=== PATIENT | female | born 1935 | race Caucasian/White ===

== ENCOUNTER 2016-04-23 14:13 | Inpatient (IN) | payer OTHER ==
[~2016-04-23] VITALS: Ht 157.5 cm; Wt 70.8 kg
[~2016-04-23 14:13] MED LIST: ALEN70TA4 PO; AMIO200T4 PO; CLOP1TAB54 PO; CMD25 PO; ESCI10TA17 PO; FERRTAB18 PO; FLUO0.0543 TOP; HYDR-5688 PO; KETO2CRE14 TOP; METO1TAB31 PO; NITR0.2D TD; NITR0.4S UT; NYSS/ PO; ONDA4TAB46 PO; PANT40TA PO; POTA10CA28 PO; PRED-301 PO; ROSU40TA PO; TRAM-10 PO
[2016-04-23] MEDS ORDERED: WARF5TAB7 PO (14:41)
[2016-04-23] MEDS ORDERED: CMD5 PO (14:41)
[2016-04-23] MEDS ORDERED: MoRPHine SULFATE 4 MG/ML 1 ML CARP\\VIAL IV STA (15:02)
[2016-04-23] MEDS ORDERED: SODIUM CHLORIDE 0.9% 500ML 500 ML IV STA (15:02)
[2016-04-23] MEDS ORDERED: ONDANSETRON INJ 2 MG/ML 2 ML VIAL IV STA (15:02)
[2016-04-23] MEDS ORDERED: OPTIRAY 320 IV PRN (15:15)
[2016-04-23 15:24] LABS: BASO % 0.2 %; BASO ABS # 0.02 K/uL (0-0.2); COMPLETE YES; EOS % 0.3 %; HEMATOCRIT 31.7 % (37-47); IG% 0.1 %; LYMPH % 9.3 %; LYMPH ABS # 1.08 K/uL (1.2-3.4); MEAN CELL VOLUME 87.6 fL (80-100); MEAN CORPUSCULAR HEMOGLOBIN 27.3 pg (25-34); MEAN CORPUSCULAR HGB CONC 31.2 g/dl (32-36); MEAN PLATELET VOLUME 10.4 fL (7.4-10.4); MONO % 11.5 %; NEUT % 78.6 %; PLATELET COUNT 250 K/uL (130-400); RED BLOOD COUNT 3.62 M/uL (4.2-5.4); WHITE BLOOD COUNT 11.59 K/uL (4.8-10.8)
[2016-04-23 15:44] LABS: PROTHROMBIN TIME (PATIENT) > 100.0 SECONDS (9.0-12.0)
[2016-04-23 15:47] LABS: BUN/CREATININE RATIO 21.5 (10-20); CALCIUM 8.4 mg/dl (8.5-10.1); CREATININE 1.1 mg/dl (0.60-1.20); POTASSIUM 4.2 mmol/L (3.5-5.1)
[2016-04-23 16:05] LABS: INR > 8.0 (0.9-1.1)
--- NOTE | 2016-04-23 16:29 | DIAGNOSTIC IMAGING REPORT ---
CT ABD/PELVIS IV CONTRAST ONLY CLINICAL HISTORY: Left lower quadrant abdominal pain COMPARISON STUDY: 10/30/2015 TECHNIQUE: Following the IV administration of 110 mL of Optiray-320, CT scan of the abdomen and pelvis was performed from the lung bases to the proximal femurs. Images are reviewed in the axial, sagittal, and coronal planes. IV contrast was administered without complication. CT DOSE: 422.79 mGy.cm FINDINGS: Lower chest: The heart is enlarged. There are bibasal atelectatic changes. Liver: The contrast-enhanced liver is normal in size, contour, and attenuation. There is no intrahepatic biliary ductal dilatation. The hepatic veins and portal veins are patent. Gallbladder: The gallbladder is minimally distended. There are multiple calculi present. Spleen: Normal in size and attenuation. Pancreas: Unremarkable. Adrenal glands: Unremarkable. Kidneys: There is subtle diminished enhancement of the left kidney. There is a 6 mm right renal cyst. As a complex 13 mm lower pole left renal cystic lesion containing coarse calcifications. This remain similar to the prior noncontrast study. There is subtle increased density of the proximal left ureter, but a discrete calculus is not visualized. There is mild uroepithelial thickening of the left renal pelvis. Diagnostic considerations include ureteral neoplasm, ureteral hemorrhage, or radiolucent or recently passed calculus. Associated renal infection cannot be excluded. Bowel: There are no transition zones indicate bowel obstruction. There is no evidence of acute diverticulitis. There are no findings to indicate acute appendicitis. Peritoneum: There is no intraperitoneal free air or abdominal ascites. Vasculature: The abdominal aorta is normal in course and caliber. Adenopathy: None. Pelvic viscera: The bladder, and pelvic viscera are unremarkable. Skeletal structures: No destructive osseous lesions are seen. IMPRESSION: 1. No evidence of bowel obstruction. No evidence of free air 2. Normal appendix. No evidence of acute diverticulitis. 3. Cholelithiasis 4. Complex 13 mm lower pole left renal cystic mass containing coarse calcifications 5. Mild left-sided hydronephrosis, mild proximal uroepithelial thickening, subtle diminished left-sided nephrogram, and subtle increased density of the left proximal ureter. No discrete calculus is visualized. Diagnostic considerations include ureteral hemorrhage, ureteral neoplasm, radiolucent or recently passed calculus, as well as renal infection. Urological consultation is recommended. Electronically signed by: Praveen Avilez M.D. 04/23/2016 4:28 PM Dictated Date/Time: 04/23/2016 4:19 PM
[2016-04-23] MEDS ORDERED: PHYTONADIONE INJ 5 MG in SODIUM CHLORIDE 0.9% 50ML 50 ML IV ONE ×2 (16:45→17:30)
[2016-04-23] MEDS ORDERED: CEFTRIAXONE SOD INJ 1 GM ADDVIAL IV STA (16:59)
[2016-04-23] MEDS ORDERED: ACT300 PO (17:30)
[2016-04-23] MEDS ORDERED: PANT1TAB48 PO (17:30)
[2016-04-23] MEDS ORDERED: ACETAMINOPHEN 325 MG TAB PO PRN (17:30)
[2016-04-23] MEDS ORDERED: ONDANSETRON INJ 2 MG/ML 2 ML VIAL IV PRN (17:30)
[2016-04-23] MEDS ORDERED: FURO40TA3 PO (17:42)
[2016-04-23] MEDS ORDERED: SODIUM CHLORIDE 0.9% 1000ML 1,000 ML IV SCH (17:45)
--- NOTE | 2016-04-23 17:45 | EMERGENCY ROOM VISIT NOTE ---
History Report prepared by Renateibpete: Adriana Schmid Under the Supervision of: Rosibel DiegoO. First contact with patient: 14:52 Chief Complaint: ABDOMINAL PAIN Stated Complaint: ABDOMINAL PAIN Nursing Triage Summary: Pt arrives ALS for evalution of increased abd pain, nausea today. Reports pain and nausea the last few days with pain behind bilat knees, left back pain, right jaw pain and loose bowels. History of Present Illness The patient is a 81 year old female who presents to the Emergency Room via ALS with complaints of persistent left sided abdominal pain starting about 2-3 days ago. She also complains of severe nausea but denies vomiting. She has been having intermittent diarrhea for the past few days. She also complains of bilateral lower extremity pain. She has chronic low back pain which is unchanged. She denies any hematuria. The patient denies any recent trauma or falls. fevers, chest pain, shortness of breath, urinary symptoms, or any other complaints. The patient is on Coumadin. She denies any history of similar pain. She denies any history of asthma, COPD, appendectomy, or cholecystectomy. Source of History: patient Onset: about 2-3 days ago Position: abdomen (left sided) Timing: other (persistent) Associated Symptoms: + nausea, No SOB, No chest pain, No fevers, No urinary symptoms, No vomiting Review of Systems See HPI for pertinent positives & negatives. A total of 10 systems reviewed and were otherwise negative. Past Medical & Surgical Medical Problems: (1) Anticoagulation goal of INR 2 to 3 (2) Atrial thrombus (3) CAD (coronary artery disease) (4) Cardiomyopathy (5) CHF (congestive heart failure) (6) CKD (chronic kidney disease), stage III (7) Elevated troponin (8) HLD (hyperlipidemia) (9) Hydronephrosis (10) ICD (implantable cardioverter-defibrillator) battery depletion (11) On prednisone therapy (12) PMR (polymyalgia rheumatica) (13) Pulmonary embolism, bilateral (14) PVD (peripheral vascular disease) (15) Ventricular tachycardia Surgical Problems: (1) History of back surgery Family History Heart disease Social History Smoking Status: Former Smoker Alcohol Use: none Drug Use: none Marital Status: single Housing Status: lives alone Occupation Status: retired Current/Historical Medications Scheduled Amiodarone Hcl (Cordarone), 200 MG PO DAILY Clopidogrel Bisulfate (Plavix), 75 MG PO DAILY Furosemide (Lasix), 10 MG PO UD Metoprolol Succinate (Toprol Xl), 25 MG PO QAM Nitroglycerin (Nitro-Dur 0.2 Mg/Hr), 1 PATCH TD ONAMOFFPM Pantoprazole (Protonix), 1 TAB PO BID Potassium Chloride (Micro-K Ext Rel), 20 MEQ PO DAILY Prednisone (Prednisone), 7.5 MG PO DAILY Ursodiol (Ursodiol), 300 MG PO BID Warfarin Sod (Coumadin), 5 MG PO 4XWK Warfarin Sod (Jantoven), 2.5 MG PO 3XWK Scheduled PRN Nitroglycerin (Nitrostat), 0.4 MG UT UD PRN for Chest Pain Ondansetron Hcl (Zofran), 8 MG PO Q8 PRN for Nausea Tramadol (Ultram), 50 MG PO Q6H PRN for Pain Allergies Coded Allergies: Azithromycin (Verified Allergy, Severe, ANAPHYLAXIS, 10/30/15) NSAIDs (Verified Allergy, Severe, HIVES, 10/30/15) Aspirin (Verified Allergy, Unknown, hives, 10/30/15) Erythromycin (Verified Allergy, Unknown, ., 10/30/15) Gabapentin (Verified Allergy, Unknown, myoclonus, 10/30/15) Physical Exam Vital Signs Date Time Temp Pulse Resp B/P Pulse Ox O2 Delivery O2 Flow Rate FiO2 04/23/16 17:13 37.1 63 16 152/72 100 4.0 04/23/16 16:48 100 Nasal Cannula 4.0 04/23/16 16:13 70 16 129/64 100 6.0 04/23/16 15:39 59 16 131/66 99 Nasal Cannula 04/23/16 15:31 Nasal Cannula 6.0 04/23/16 15:28 Nasal Cannula 4.0 04/23/16 14:31 63 04/23/16 14:28 36.9 64 20 135/63 97 Room Air Physical Exam GENERAL: Sitting up in bed, disheveled, no acute distress, nontoxic. EYE EXAM: normal conjunctiva OROPHARYNX: no exudate, no erythema, lips, buccal mucosa, and tongue normal and mucous membranes are moist NECK: supple, no nuchal rigidity, no adenopathy, non-tender LUNGS: Clear to auscultation. Normal chest wall mechanics HEART: Distant heart sounds. ABDOMEN: abdomen soft, minimal diffuse lower abdominal tenderness, normo-active bowel sounds, no masses, no rebound or guarding. BACK: Reproducible bilateral paraspinal tenderness, skin is intact, no midline tenderness, old incision in lower lumbar. RECTAL: Heme negative. SKIN: no rashes and no bruising UPPER EXTREMITIES: upper extremities are grossly normal. LOWER EXTREMITIES: No pitting edema. NEURO EXAM: Normal sensorium, cranial nerves II-XII grossly intact, normal speech, normal flexion, extension, hip, ankles, EHL 5/5 bilaterally. Medical Decision & Procedures ER Provider Diagnostic Interpretation: CT:Per my review, radiologist interpretation. CT ABD/PELVIS IV CONTRAST ONLY CLINICAL HISTORY: Left lower quadrant abdominal pain COMPARISON STUDY: 10/30/2015 TECHNIQUE: Following the IV administration of 110 mL of Optiray-320, CT scan of the abdomen and pelvis was performed from the lung bases to the proximal femurs. Images are reviewed in the axial, sagittal, and coronal planes. IV contrast was administered without complication. CT DOSE: 422.79 mGy.cm FINDINGS: Lower chest: The heart is enlarged. There are bibasal atelectatic changes. Liver: The contrast-enhanced liver is normal in size, contour, and attenuation. There is no intrahepatic biliary ductal dilatation. The hepatic veins and portal veins are patent. Gallbladder: The gallbladder is minimally distended. There are multiple calculi present. Spleen: Normal in size and attenuation. Pancreas: Unremarkable. Adrenal glands: Unremarkable. Kidneys: There is subtle diminished enhancement of the left kidney. There is a 6 mm right renal cyst. As a complex 13 mm lower pole left renal cystic lesion containing coarse calcifications. This remain similar to the prior noncontrast study. There is subtle increased density of the proximal left ureter, but a discrete calculus is not visualized. There is mild uroepithelial thickening of the left renal pelvis. Diagnostic considerations include ureteral neoplasm, ureteral hemorrhage, or radiolucent or recently passed calculus. Associated renal infection cannot be excluded. Bowel: There are no transition zones indicate bowel obstruction. There is no evidence of acute diverticulitis. There are no findings to indicate acute appendicitis. Peritoneum: There is no intraperitoneal free air or abdominal ascites. Vasculature: The abdominal aorta is normal in course and caliber. Adenopathy: None. Pelvic viscera: The bladder, and pelvic viscera are unremarkable. Skeletal structures: No destructive osseous lesions are seen. IMPRESSION: 1. No evidence of bowel obstruction. No evidence of free air 2. Normal appendix. No evidence of acute diverticulitis. 3. Cholelithiasis 4. Complex 13 mm lower pole left renal cystic mass containing coarse calcifications 5. Mild left-sided hydronephrosis, mild proximal uroepithelial thickening, subtle diminished left-sided nephrogram, and subtle increased density of the left proximal ureter. No discrete calculus is visualized. Diagnostic considerations include ureteral hemorrhage, ureteral neoplasm, radiolucent or recently passed calculus, as well as renal infection. Urological consultation is recommended. Electronically signed by: Praveen Avilez M.D. 04/23/2016 4:28 PM Dictated Date/Time: 04/23/2016 4:19 PM Laboratory Results 04/23/16 15:15 Red Blood Count 3.62, Mean Corpuscular Volume 87.6, Mean Corpuscular Hemoglobin 27.3, Mean Corpuscular Hemoglobin Concent 31.2, Mean Platelet Volume 10.4, Neutrophils (%) (Auto) 78.6, Lymphocytes (%) (Auto) 9.3, Monocytes (%) (Auto) 11.5, Eosinophils (%) (Auto) 0.3, Basophils (%) (Auto) 0.2, Neutrophils # (Auto ) 9.11, Lymphocytes # (Auto) 1.08, Monocytes # (Auto) 1.33, Eosinophils # (Auto ) 0.04, Basophils # (Auto) 0.02 04/23/16 15:15 Test 04/23/16 15:15 White Blood Count 11.59 K/uL (4.8-10.8) Red Blood Count 3.62 M/uL (4.2-5.4) Hemoglobin 9.9 g/dL (12.0-16.0) Hematocrit 31.7 % (37-47) Mean Corpuscular Volume 87.6 fL (80-100) Mean Corpuscular Hemoglobin 27.3 pg (25-34) Mean Corpuscular Hemoglobin Concent 31.2 g/dl (32-36) Platelet Count 250 K/uL (130-400) Mean Platelet Volume 10.4 fL (7.4-10.4) Neutrophils (%) (Auto) 78.6 % Lymphocytes (%) (Auto) 9.3 % Monocytes (%) (Auto) 11.5 % Eosinophils (%) (Auto) 0.3 % Basophils (%) (Auto) 0.2 % Neutrophils # (Auto) 9.11 K/uL (1.4-6.5) Lymphocytes # (Auto) 1.08 K/uL (1.2-3.4) Monocytes # (Auto) 1.33 K/uL (0.11-0.59) Eosinophils # (Auto) 0.04 K/uL (0-0.5) Basophils # (Auto) 0.02 K/uL (0-0.2) RDW Standard Deviation 52.3 fL (36.4-46.3) RDW Coefficient of Variation 16.3 % (11.5-14.5) Immature Granulocyte % (Auto) 0.1 % Immature Granulocyte # (Auto) 0.01 K/uL (0.00-0.02) Anion Gap 8.0 mmol/L (3-11) Est Creatinine Clear Calc Drug Dose 38.3 ml/min Estimated GFR () 54.9 Estimated GFR (Non- 47.4 BUN/Creatinine Ratio 21.5 (10-20) Calcium Level 8.4 mg/dl (8.5-10.1) Total Bilirubin 0.6 mg/dl (0.2-1) Direct Bilirubin 0.1 mg/dl (0-0.2) Aspartate Amino Transf (AST/SGOT) 16 U/L (15-37) Alanine Aminotransferase (ALT/SGPT) 17 U/L (12-78) Alkaline Phosphatase 57 U/L (45-117) Total Protein 6.6 gm/dl (6.4-8.2) Albumin 3.3 gm/dl (3.4-5.0) Lipase 125 U/L (73-393) Laboratory results per my review. Medications Administered Medications (Trade) Dose Ordered Sig/Olman Route Start Time Stop Time Status Last Admin Dose Admin Sodium Chloride (Nss 500ml) 500 ml @ 999 mls/hr Q31M STAT IV 04/23/16 15:02 04/23/16 15:32 DC 04/23/16 15:09 999 MLS/HR Ondansetron HCl (Zofran Inj) 4 mg NOW STAT IV 04/23/16 15:02 04/23/16 15:03 DC 04/23/16 15:11 4 MG Morphine Sulfate 4 mg 4 mg NOW STAT IV 04/23/16 15:02 04/23/16 15:03 DC 04/23/16 15:12 4 MG Phytonadione/ Sodium Chloride (Aqua-Mephyton Inj/Nss 50ml) 50.5 ml @ 101 mls/hr ONE ONCE IV 04/23/16 16:45 04/23/16 17:14 DC 04/23/16 17:15 101 MLS/HR Ceftriaxone Sodium (Rocephin Inj) 1 gm NOW STAT IV 04/23/16 16:59 04/23/16 17:00 DC 04/23/16 17:45 1 GM ECG Indication: abdominal pain Rate (beats per minute): 63 Rhythm: sinus rhythm Findings: Q waves (Septal), left axis deviation, other (ST segment elevation in v1 and v2) Comparison ECG Date: October 30, 2015 and August 20, 2015 Change: no significant change ED Course ED COURSE: Vital signs were reviewed and showed normal. The patients medical record was reviewed The above diagnostic studies were performed and reviewed. ED treatments and interventions as stated above. 1452: The patient was evaluated in room A12B. A complete history and physical examination was performed. 1502: Morphine Sulfate 4 mg IV, Zofran Inj 4 mg IV, Sodium Chloride 500 ml @ 999 mls/hr IV 1539: The patient is awake and talking. 1645: Phytonadione mg/Sodium Chloride 50.5 ml @ 101 mls/hr Protocol IV 1659: Rocephin Inj 1 mg IV 1725: The patient has blood in her urine. She denies any previous history of hematuria. 1730: Phytonadione mg/Sodium Chloride 50.5 ml @ 101 mls/hr Protocol IV 1654: Upon reevaluation, the patient is resting comfortably .I discussed my findings with the patient and she understands and agrees with the treatment plan. Based on the patients age, coexisting illnesses, exam and lab findings the decision to treat as an inpatient was made. The patient remained stable while under my care. The patient will be evaluated for further management. I discussed the patient's case with Tammie Ramon PA-C with [facility]. Medical Decision Differential diagnoses includes but is not limited to gastritis, peptic ulcer disease, GERD, gallbladder disease, pancreatitis, small bowel obstruction, acute coronary syndrome, pericarditis, ischemic bowel, irritable bowel disease, irritable bowel syndrome, appendicitis, diverticulitis, malignancy, hernia, urinary tract infection, torsion, [/ectopic (if female)], perforation, trauma, infectious. Patient is an 81-year-old female who presents the ER for nausea associated with left lower quadrant abdominal pain. She has that she does have some new left lower back pain as well. Patient denies any fevers. She has no other complaints with the exception of chronic lower back pain. She denies any chest pain or shortness breath. Labs and EKG were obtained. EKG shows ST segment elevation in the septal leads which is unchanged from her previous EKGs. She has no chest pain or shortness of breath. Troponin was slightly elevated at 0.1 but I did not discussed with cardiology as she has no chest pain or shortness of breath and EKG is unchanged. Her INR was significantly elevated at 8. CT of her abdomen and pelvis showed some mild hydronephrosis on the left with a large differential. In the differential was infection versus hemorrhage. Patient denied any hematuria. She was able to urinate which had a significant hematuria. I do favor this is likely the cause. Prior to her the results of her UA I did discuss the case with internal medicine and she was admitted. I did reverse her INR with a total of 10 mg of vitamin K. She was updated in regards to reversal and the risk. Patient does deny any recent trauma. Patient was updated at bedside was admitted to internal medicine. Consults Time Called: 1643 Consulting Physician: Tammie Ramon PA-C with [facility] Returned Call: [phone] I discussed the patient's case with Tammie Ramon PA-C with [facility]. Impression Primary Impression: Weakness Additional Impressions: Left flank pain Hematuria Elevated troponin Scribe Attestation The scribe's documentation has been prepared under my direction and personally reviewed by me in its entirety. I confirm that the note above accurately reflects all work, treatment, procedures, and medical decision making performed by me. Departure Information Dispostion Being Evaluated By Hospitalist Referrals Patria Leslie M.D. (PCP) Patient Instructions [facility] Problem Qualifiers
[2016-04-23 18:06] LABS: URINE BILIRUBIN NEG (NEG); URINE EPITHELIAL CELL AUTO >30 /lpf (0-5); URINE NITRITE NEG (NEG); URINE PH 6.5 (4.5-7.5); URINE SPECIFIC GRAVITY > 1.045 (1.000-1.030); UROBILINOGEN NEG (NEG); ZZURINE CULT IF INDIC CATH NO
[2016-04-23 18:10] LABS: MANUAL MICROSCOPIC REQUIRED? NO; REVIEW REQ? YES
[2016-04-23 18:11] LABS: URINE APPEARANCE CLOUDY (CLEAR); URINE COLOR RED
--- NOTE | 2016-04-23 18:15 | History and Physical ---
History & Physical Date & Time of Service: Apr 23, 2016 at 17:51 Chief Complaint: Abdominal Pain Primary Care Physician: Patria Leslie M.D. History of Present Illness Source: patient, family, clinic records, hospital records Patient seen and examined. 81 year old female with PMHx of CAD, severe systolic CHF s/p ICD, H/O apical mural thrombus,H/O bilateral PEs on Coumadin, h/o CKD stage 3, H/O sustained VT, polymyalgia rheumatica on prednisone, and other problems listed below presents to the ED complaining of nausea x 1 day. Patient reports she has had nausea for about a day. She states she went out to dinner last night for her 81th birthday but did not eat anything out of the ordinary. She states no one at the libertarian is sick. She reports she thinks if she would vomit she would feel better but she has not vomited. She denies any associated abdominal pain. She denies fevers, chills, URI symptoms, chest pain, SOB, abdominal pain, vomiting, diarrhea, dysuria, calf pain and edema. She reports she has been having epistaxis lately but that the bleeding easily stops. She denies any other unusual bleeding. In the ED VS are stable, Hgb is stable, INR is >8, CT scan shows abnormal changes to her left proximal ureteral area. UA is pending but sample shows gross hematuria. She received IVF hydration, antiemetics and vitamin K. She is resting comfortably. She will be admitted for further workup and treatment. Past Medical/Surgical History Medical Problems: (1) Anticoagulation goal of INR 2 to 3 Status: Chronic (2) Atrial thrombus Status: Chronic (3) CAD (coronary artery disease) Status: Chronic (4) Cardiomyopathy Status: Chronic (5) CHF (congestive heart failure) Status: Chronic (6) CKD (chronic kidney disease), stage III Status: Chronic (7) HLD (hyperlipidemia) Status: Chronic (8) ICD (implantable cardioverter-defibrillator) battery depletion Status: Chronic (9) On prednisone therapy Status: Chronic (10) PMR (polymyalgia rheumatica) Status: Chronic (11) Pulmonary embolism, bilateral Status: Chronic (12) PVD (peripheral vascular disease) Status: Chronic (13) Ventricular tachycardia Status: Chronic Surgical Problems: (1) History of back surgery Status: Chronic Family History Heart disease Social History Smoking Status: Former Smoker Alcohol Use: none Drug Use: none Marital Status: single Housing status: lives alone Occupational Status: retired Immunizations History of Influenza Vaccine: Yes Influenza Vaccine Date: Jan 12, 2014 History of Tetanus Vaccine?: Yes Tetanus Immunization Date: Jun 16, 2011 History of Pneumococcal: Pneumococcal Date: Jan 20, 2012 History of Hepatitis B Vaccine: No Multi-Drug Resistant Organisms History of MDRO: No Allergies Coded Allergies: Azithromycin (Verified Allergy, Severe, ANAPHYLAXIS, 10/30/15) NSAIDs (Verified Allergy, Severe, HIVES, 10/30/15) Aspirin (Verified Allergy, Unknown, hives, 10/30/15) Erythromycin (Verified Allergy, Unknown, ., 10/30/15) Gabapentin (Verified Allergy, Unknown, myoclonus, 10/30/15) Home Medications Scheduled Amiodarone Hcl (Cordarone), 200 MG PO DAILY Clopidogrel Bisulfate (Plavix), 75 MG PO DAILY Furosemide (Lasix), 10 MG PO UD Metoprolol Succinate (Toprol Xl), 25 MG PO QAM Nitroglycerin (Nitro-Dur 0.2 Mg/Hr), 1 PATCH TD ONAMOFFPM Pantoprazole (Protonix), 1 TAB PO BID Potassium Chloride (Micro-K Ext Rel), 20 MEQ PO DAILY Prednisone (Prednisone), 7.5 MG PO DAILY Ursodiol (Ursodiol), 300 MG PO BID Warfarin Sod (Coumadin), 5 MG PO 4XWK Warfarin Sod (Jantoven), 2.5 MG PO 3XWK Scheduled PRN Nitroglycerin (Nitrostat), 0.4 MG UT UD PRN for Chest Pain Ondansetron Hcl (Zofran), 8 MG PO Q8 PRN for Nausea Tramadol (Ultram), 50 MG PO Q6H PRN for Pain Review of Systems See above for pertinent positives & negatives. A total of 10 systems reviewed and were otherwise negative. Physical Exam Vital Signs Date Time Temp Pulse Resp B/P Pulse Ox O2 Delivery O2 Flow Rate FiO2 04/23/16 17:43 65 18 120/63 100 4.0 04/23/16 17:29 64 20 136/65 100 4.0 04/23/16 17:13 37.1 63 16 152/72 100 4.0 04/23/16 16:48 100 Nasal Cannula 4.0 04/23/16 16:13 70 16 129/64 100 6.0 04/23/16 15:39 59 16 131/66 99 Nasal Cannula 04/23/16 15:31 Nasal Cannula 6.0 04/23/16 15:28 Nasal Cannula 4.0 04/23/16 14:31 63 04/23/16 14:28 36.9 64 20 135/63 97 Room Air General Appearance: + pertinent finding (Chroncially ill appearing 81 year old female lying in bed in NAD with daughter at bedside ) Head: normocephalic, atraumatic Eyes: PERRL, EOMI, sclerae normal ENT: hearing grossly normal, + pertinent finding (lips, pharynx/mucosa dry, cracked ) Neck: supple, no JVD, trachea midline Respiratory/Chest: chest non-tender, lungs clear, normal breath sounds, no respiratory distress, no accessory muscle use Cardiovascular: regular rate, rhythm, no gallop, no JVD, normal peripheral pulses, + systolic murmur Abdomen/GI: normal bowel sounds, non tender, soft Back: normal inspection, no CVA tenderness, no muscle spasm Extremities/Musculoskelatal: no calf tenderness, normal capillary refill, + pedal edema (trace) Neurologic/Psych: alert, oriented x 3, + pertinent finding (no motor or sensory deficits noted on gross exam ) Skin: normal color, warm/dry, no rash Lymphatic: no adenopathy Diagnostics Laboratory Results Results Past 24 Hours Test 04/23/16 15:15 04/23/16 17:28 Range/Units White Blood Count 11.59 4.8-10.8 K/uL Red Blood Count 3.62 4.2-5.4 M/uL Hemoglobin 9.9 12.0-16.0 g/dL Hematocrit 31.7 37-47 % Mean Corpuscular Volume 87.6 80-100 fL Mean Corpuscular Hemoglobin 27.3 25-34 pg Mean Corpuscular Hemoglobin Concent 31.2 32-36 g/dl Platelet Count 250 130-400 K/uL Mean Platelet Volume 10.4 7.4-10.4 fL Neutrophils (%) (Auto) 78.6 % Lymphocytes (%) (Auto) 9.3 % Monocytes (%) (Auto) 11.5 % Eosinophils (%) (Auto) 0.3 % Basophils (%) (Auto) 0.2 % Neutrophils # (Auto) 9.11 1.4-6.5 K/uL Lymphocytes # (Auto) 1.08 1.2-3.4 K/uL Monocytes # (Auto) 1.33 0.11-0.59 K/uL Eosinophils # (Auto) 0.04 0-0.5 K/uL Basophils # (Auto) 0.02 0-0.2 K/uL RDW Standard Deviation 52.3 36.4-46.3 fL RDW Coefficient of Variation 16.3 11.5-14.5 % Immature Granulocyte % (Auto) 0.1 % Immature Granulocyte # (Auto) 0.01 0.00-0.02 K/uL Prothrombin Time > 100.0 9.0-12.0 SECONDS Prothromb Time International Ratio > 8.0 0.9-1.1 Sodium Level 143 136-145 mmol/L Potassium Level 4.2 3.5-5.1 mmol/L Chloride Level 107 98-107 mmol/L Carbon Dioxide Level 28 21-32 mmol/L Anion Gap 8.0 3-11 mmol/L Blood Urea Nitrogen 24 7-18 mg/dl Creatinine 1.10 0.60-1.20 mg/dl Est Creatinine Clear Calc Drug Dose 38.3 ml/min Estimated GFR () 54.9 Estimated GFR (Non- 47.4 BUN/Creatinine Ratio 21.5 10-20 Random Glucose 97 70-99 mg/dl Calcium Level 8.4 8.5-10.1 mg/dl Total Bilirubin 0.6 0.2-1 mg/dl Direct Bilirubin 0.1 0-0.2 mg/dl Aspartate Amino Transf (AST/SGOT) 16 15-37 U/L Alanine Aminotransferase (ALT/SGPT) 17 12-78 U/L Alkaline Phosphatase 57 45-117 U/L Troponin I 0.178 0-0.045 ng/ml Total Protein 6.6 6.4-8.2 gm/dl Albumin 3.3 3.4-5.0 gm/dl Lipase 125 73-393 U/L Diagnostic Radiology CT A/P Per radiologist read: IMPRESSION: 1. No evidence of bowel obstruction. No evidence of free air 2. Normal appendix. No evidence of acute diverticulitis. 3. Cholelithiasis 4. Complex 13 mm lower pole left renal cystic mass containing coarse calcifications 5. Mild left-sided hydronephrosis, mild proximal uroepithelial thickening, subtle diminished left-sided nephrogram, and subtle increased density of the left proximal ureter. No discrete calculus is visualized. Diagnostic considerations include ureteral hemorrhage, ureteral neoplasm, radiolucent or recently passed calculus, as well as renal infection. Urological consultation is recommended. EKG NSR 63 BPM, LAFB, LVH, Chronic ST depression to inferior leads. Chronic minor ST elevation to lateral leads. QTc 464 no significant change noted Impression Assessment and Plan 81 year old female presents to the ED complaining of nausea x 1 day GROSS HEMATURIA -Admit to tele -? etiology CT shows per radiologist read: . Mild left-sided hydronephrosis, mild proximal uroepithelial thickening, subtle diminished left-sided nephrogram, and subtle increased density of the left proximal ureter. No discrete calculus is visualized. Diagnostic considerations include ureteral hemorrhage, ureteral neoplasm, radiolucent or recently passed calculus, as well as renal infection. Urological consultation is recommended. -UA pending - but sample with gross hematuria -Discussed case with Dr. Spangler she recommends empiric treating for infection until proven otherwise input appreciated -Empirically started on Rocephin -Reverse Coumadin - strain urine - NO CATHETER PLACEMENT -clear liquid diet -gentle IVF hydration -serial H&H hgb 9.9 -formal urology consult placed -CBC, PRP, Mg in AM SUPRATHERAPEUTIC INR -INR >8, reports outpatient INRs have been normal - not in epic system -Hold Coumadin -5mg IV Vitamin K given -Hgb stable at 9.9, serial H&H q6h -Repeat INR tonight -type and cross 2 units PRBCs and FFP -Monitor closely in telemetry ELEVATED TROPONIN - H/O CAD -Troponin 0.178, no chest pain -Continue Nitropatch, BB -hold Plavix for now d/t bleeding -serial Aydin, EKGs -repeat echo -monitor in tele SEVERE SYSTOLIC CHF -EF <15, h/o ICD placement -appears dry -hold lasix -gentle IVF hydration -monitor volume status closely CKD STAGE 3 -crea 1.1 which is baseline -avoid nephrotoxic agents as able -follow PRP H/O SUSTAINED VENTRICULAR TACHYCARDIA -continue amiodarone -continue BB -monitor in tele POLYMYALGIA RHEUMATICA -continue prednisone -no indication to stress dose at this time H/O BILATERAL PE, H/O APICAL THROMBUS -INR >8 -hold Coumadin -management as above DVT PROPHYLAXIS: INR >8 - holding Coumadin for now CODE STATUS: LEVEL 3 NO MECHANICAL VENTILATION per my discussion with the patient and her daughter DISPO:In my clinical judgment this beneficiary meets acute admission criteria, established by [facility], that includes being hospitalized through two midnights. discharge planning eval Patient seen in collaboration with Dr. Ramirez ATTENDING ADDENDUM care coordinated with PRAKASH Ramon please refer to her notes for full details, I agree with her notes patient seen and examined, records reviewed by myself as well on exam, patient seen resting in bed, comfortable states nausea is better has occasional flank pains no hematuria since the one episode at the ER no other symptoms VS noted and reviewed oriented x 3, not in distress, speaks in sentences with no effort nor accessory muscle use normal rate, regular rhythm clear breath sounds bilaterally non distended, soft, nontender Hg 9.9 INR > 8 ASSESSMENT/PLAN> HEMATURIA, POSSIBLE LEFT RENAL PELVIS CALCULUS, HEMORRHAGE, NEOPLASM INR >8 - Hg at baseline monitor q6h - Vit K IV given, monitor INR 2 units PRBC and FFP on hold - Urine culture empiric Ceftri - discussed above with Dr. Spangler NPO after midnight HISTORY OF CAD MILD TROPONIN ELEVATION no cardiac symptoms, no acute ischemia per EKG serial cardiac markers, echo Plavix held for hematuria other diagnoses and plan of care as per PRAKASH Ramon's notes Denver Ramirez MD VTE Prophylaxis VTE Risk Assessment Done? Y/N: Yes Risk Level: High
[2016-04-23 19:28] VITALS: BP 133/73; PULSE 65; TEMP 36.4; Ht 157.5 cm; Wt 70.8 kg
[2016-04-23] MEDS: TRAMADOL HCL 50 MG TAB PO PRN (20:18)
[2016-04-23 21:36] LABS: HEMATOCRIT 28.3 % (37-47)
[2016-04-23 21:46] LABS: INR 2.4 (0.9-1.1); PROTHROMBIN TIME (PATIENT) 26.1 SECONDS (9.0-12.0)
[2016-04-23] MEDS: PANTOprazole SOD 40 MG TAB PO SCH (21:53)
[2016-04-23] MEDS: URSODIOL 300 MG CAP PO SCH (21:53)
[2016-04-23 22:03] LABS: CKMB/CK RATIO 1.2 (0-3.0)
[2016-04-23 23:11] VITALS: BP 108/54; PULSE 66; TEMP 37.3; O2SAT 99
[2016-04-23 23:27] VITALS: BP 126/63; PULSE 65; O2SAT 97
[2016-04-23 23:59] VITALS: BP 101/58; PULSE 59; TEMP 36.9; O2SAT 94
[2016-04-24] VITALS (8 sets, daily range): BP systolic 94–119; BP diastolic 53–64; PULSE 54–66; TEMP 36.5–37.4; O2SAT 91–100
[2016-04-24 03:08] LABS: HEMATOCRIT 28.8 % (37-47); MEAN CELL VOLUME 88.9 fL (80-100); MEAN CORPUSCULAR HEMOGLOBIN 27.2 pg (25-34); MEAN CORPUSCULAR HGB CONC 30.6 g/dl (32-36); MEAN PLATELET VOLUME 10.4 fL (7.4-10.4); PLATELET COUNT 214 K/uL (130-400); RED BLOOD COUNT 3.24 M/uL (4.2-5.4); WHITE BLOOD COUNT 8.53 K/uL (4.8-10.8)
[2016-04-24 03:15] LABS: INR 1.4 (0.9-1.1); PROTHROMBIN TIME (PATIENT) 15.1 SECONDS (9.0-12.0)
[2016-04-24 03:25] LABS: BUN/CREATININE RATIO 20.8 (10-20); CALCIUM 8.3 mg/dl (8.5-10.1); CREATININE 1.1 mg/dl (0.60-1.20); MAGNESIUM 2.5 mg/dl (1.8-2.4); POTASSIUM 4.1 mmol/L (3.5-5.1)
[2016-04-24 03:48] LABS: CKMB/CK RATIO 1.4 (0-3.0)
[2016-04-24] MEDS ORDERED: PERFLUTREN LIPID MICROSPHERE (DEFINITY) IV ONE (07:45)
[2016-04-24] MEDS: PANTOprazole SOD 40 MG TAB PO SCH ×2 (08:46→22:42)
[2016-04-24] MEDS: AMIODARONE 200 MG TAB PO SCH (08:46)
[2016-04-24] MEDS: METOPROLOL SUCC 25MG EXT REL TAB PO SCH (08:46)
[2016-04-24] MEDS: NITROGLYCERIN 0.2 MG/HR PATCH TD SCH (08:47)
[2016-04-24] MEDS: URSODIOL 300 MG CAP PO SCH ×2 (08:47→22:41)
[2016-04-24 10:06] LABS: HEMATOCRIT 26.5 % (37-47)
--- NOTE | 2016-04-24 10:45 | Clinical Documentation Query ---
TARA Purcell : CLINICAL DOCUMENTATION QUERIES QUERY 1 OF 2 Patient is an 81 year old female admitted with gross hematuria. Documentation includes: "-UA pending - but sample with gross hematuria -Discussed case with Dr. Spangler she recommends empiric treating for infection until proven otherwise input appreciated -Empirically started on Rocephin" Please explicitly state the condition (by medical diagnosis) you are empirically treating. Thank you. In your clinical opinion is this patient being managed for: ( ) (Possible) Urinary tract infection ( ) Other explanation of clinical findings (Please Explain) ( x ) Unable to determine (Please Define) ( ) Need to Discuss ( ) Not Agree The medical record reflects the following clinical findings, treatment, and risk factors. Clinical Indicators: As above Treatment: UA, C&S, Rocephin IV Risk Factors: Age, gender QUERY 2 OF 2 Admission hemoglobin and hematocrit were 9.9 g/dl and 31.7 g/dl. This a.m. (04/24), repeat values were 8.2 g/dl and 26.5%. Most recent historical EMR values prior to this admission (10/30/15) were 12.2 g/dl and 38.6%. She has had her anticoagulation reversed and is being monitored with serial hematology. She is to be seen in consultation by urology. In your clinical opinion is this patient being managed for: (x ) Acute blood loss anemia in the setting of gross hematuria ( ) Other explanation of clinical findings (Please Explain) ( ) Unable to determine (Please Define) ( ) Need to Discuss ( ) Not Agree The medical record reflects the following clinical findings, treatment, and risk factors. Clinical Indicators: As above Treatment:She has had her anticoagulation reversed and is being monitored with serial hematology. She is to be seen in consultation by urology. Risk Factors: Plavix, ASA Please clarify and document your clinical opinion in the progress notes and discharge summary. Terms such as "probable", "suspected", "likely", "questionable", "possible", or "still to be ruled out" are acceptable. IF IN AGREEMENT, YOU MUST DOCUMENT ABOVE DIAGNOSTIC STATEMENT IN DAILY PROGRESS NOTES AND DISCHARGE SUMMARY. This document is not part of the patient's record. Thank You, Neftali Joaquin, RN [phone]
--- NOTE | 2016-04-24 12:41 | Clinical Documentation Query ---
TARA Purcell : CLINICAL DOCUMENTATION QUERY Patient is an 81 year old female admitted with gross hematuria. INR noted to be > 8 on admission. She recieved Vitamin K and is being monitored with serial hematology. Please clarify as clinically appropriate In your clinical opinion is this patient being managed for: ( X ) Gross hematuria due to Coumadin and Plavix: Also need to rule out malignancy ( ) Other explanation of clinical findings (Please Explain) ( ) Unable to determine (Please Define) ( ) Need to Discuss ( ) Not Agree The medical record reflects the following clinical findings, treatment, and risk factors. Clinical Indicators: INR > 8, gross hematuria Treatment: As above Risk Factors: Plavix and Coumadin use Please clarify and document your clinical opinion in the progress notes and discharge summary. Terms such as "probable", "suspected", "likely", "questionable", "possible", or "still to be ruled out" are acceptable. IF IN AGREEMENT, YOU MUST DOCUMENT ABOVE DIAGNOSTIC STATEMENT IN DAILY PROGRESS NOTES AND DISCHARGE SUMMARY. This document is not part of the patient's record. Thank You, Neftali Joaquin, RN [phone]
--- NOTE | 2016-04-24 12:45 | Clinical Documentation Query ---
MS. KLINEDIANELYS : CLINICAL DOCUMENTATION QUERIES QUERY 1 OF 3 Patient is an 81 year old female admitted with gross hematuria. INR noted to be > 8 on admission. She received Vitamin K and is being monitored with serial hematology. Please clarify as clinically appropriate In your clinical opinion is this patient being managed for: ( x) Gross hematuria due to Coumadin and Plavix ( ) Other explanation of clinical findings (Please Explain) ( ) Unable to determine (Please Define) ( ) Need to Discuss ( ) Not Agree The medical record reflects the following clinical findings, treatment, and risk factors. Clinical Indicators: INR > 8, gross hematuria Treatment: As above Risk Factors: Plavix and Coumadin use QUERY 2 OF 3 Admission hemoglobin and hematocrit were 9.9 g/dl and 31.7 g/dl. This a.m. (04/24), repeat values were 8.2 g/dl and 26.5%. Most recent historical EMR values prior to this admission (10/30/15) were 12.2 g/dl and 38.6%. She has had her anticoagulation reversed and is being monitored with serial hematology. She is to be seen in consultation by urology. In your clinical opinion is this patient being managed for: ( x) Acute blood loss anemia in the setting of gross hematuria ( ) Other explanation of clinical findings (Please Explain) ( ) Unable to determine (Please Define) ( ) Need to Discuss ( ) Not Agree The medical record reflects the following clinical findings, treatment, and risk factors. Clinical Indicators: As above Treatment:She has had her anticoagulation reversed and is being monitored with serial hematology. She is to be seen in consultation by urology. Risk Factors: Plavix, ASA QUERY 3 OF 3 Patient is an 81 year old female admitted with gross hematuria. Documentation includes: "-UA pending - but sample with gross hematuria -Discussed case with Dr. Spangler she recommends empiric treating for infection until proven otherwise input appreciated -Empirically started on Rocephin" Please explicitly state the condition (by medical diagnosis) you are empirically treating. Thank you. In your clinical opinion is this patient being managed for: ( x) (Possible) Urinary tract infection ( ) Other explanation of clinical findings (Please Explain) ( ) Unable to determine (Please Define) ( ) Need to Discuss ( ) Not Agree The medical record reflects the following clinical findings, treatment, and risk factors. Clinical Indicators: As above Treatment: UA, C&S, Rocephin IV Risk Factors: Age, gender Please clarify and document your clinical opinion in the progress notes and discharge summary. Terms such as "probable", "suspected", "likely", "questionable", "possible", or "still to be ruled out" are acceptable. IF IN AGREEMENT, YOU MUST DOCUMENT ABOVE DIAGNOSTIC STATEMENT IN DAILY PROGRESS NOTES AND DISCHARGE SUMMARY. This document is not part of the patient's record. Thank You, Neftali Joaquin, RN [phone]
--- NOTE | 2016-04-24 12:45 | ECHOCARDIOGRAM REPORT ---
*NOTICE TO RECEIVING DEMOCRAT AGENCY This information is strictly Confidential and protected under [place] law. [place] law prohibits you from making any further disclosure of this information unless further disclosure is expressly permitted by the written consent of the person to whom it pertains or is authorized by law. A general authorization for the release of medical or other information is not sufficient for this purpose. Hospital accepts no responsibility if the information is made available to any other person, INCLUDING THE PATIENT. Interpretation Summary * Name: MARK DOWNS Study Date: 04/24/2016 07:13 AM BP: 111/64 mmHg * Patient Location: C.2E\S\E208\S\1 HR: 54 * : 1935 (M/d/yyyy) Gender: Female Height: 62 in * Age: 81 yrs Ethnicity: [place] Weight: 162 lb * Ordering Physician: Tammie Ramon * Referring Physician: Self, Referred * Performed By: Bailee Whitehead RDCS * * Reason For Study: ELEVATED TROPONIN * BSA: 1.7 m2 * History: ELEVATED TROPONIN * Compared to prior study, there is no significant change. * -- Conclusions -- * The left ventricle is mildly dilated. * There is moderate concentric left ventricular hypertrophy. 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 Basilar segments contract normally * Left ventricular systolic function is severely reduced. * Ejection Fraction = 20-25%. Procedure Details * A contrast injection of Definity was performed to improve assessment of LV function. * Contrast was injected into an intravenous site in the right arm. * One vial of Definity ultrasound contrast was diluted in normal saline to a total volume of 10 ml. A total of '2' ml of solution was administered during imaging. * Lot # [id number] of Definity utilized for procedure. * Expiration date MAR 08. * The attending nurse who injected the contrast agent was CARLINE CHAMPAGNE. 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 * The left ventricle is mildly dilated. * There is moderate concentric left ventricular hypertrophy. * Ejection Fraction = 20-25%. * Left ventricular systolic function is severely reduced. 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 Basilar segments contract normally Right Ventricle * The right ventricle is normal in size and function. * There is a pacemaker lead in the right ventricle. Atria * The left atrial size is normal. * Right atrial size is normal. Mitral Valve * The mitral valve anatomy is normal. * There is no mitral valve stenosis. * Significant mitral regurgitation is absent. Tricuspid Valve * The tricuspid valve is not well visualized, but is grossly normal. * There is no tricuspid stenosis. * There is trace tricuspid regurgitation. * Doppler findings do not suggest pulmonary hypertension. Pulmonic Valve * The pulmonic valve is not well visualized. Great Vessels * The aortic root is normal size. Pericardium/Pleural * There is no pericardial effusion. MMode 2D Measurements and Calculations IVSd 1.4 cm IVSs 1.5 cm LVIDd 4.1 cm LVIDs 3.2 cm LVPWd 1.1 cm LVPWs 1.6 cm IVS/LVPW 1.3 FS 23.4 % EDV(Teich) 75.3 ml ESV(Teich) 39.7 ml EF(Teich) 47.3 % EDV(cubed) 70.2 ml ESV(cubed) 31.5 ml EF(cubed) 55.1 % % IVS thick 10.4 % % LVPW thick 50.3 % LV mass(C)d 173.8 grams LV mass(C)dI 99.4 grams/m\S\2 LV mass(C)s 175.9 grams LV mass(C)sI 100.6 grams/m\S\2 SV(Teich) 35.6 ml SI(Teich) 20.4 ml/m\S\2 SV(cubed) 38.7 ml SI(cubed) 22.1 ml/m\S\2 Ao root diam 3.1 cm Ao root area 7.7 cm\S\2 LA dimension 3.2 cm LA/Ao 1.0 LVAd ap4 46.7 cm\S\2 LVLd ap4 10.2 cm EDV(MOD-sp4) 172.5 ml EDV(sp4-el) 181.1 ml LVAs ap4 39.3 cm\S\2 LVLs ap4 9.8 cm ESV(MOD-sp4) 128.7 ml ESV(sp4-el) 133.6 ml EF(MOD-sp4) 25.4 % EF(sp4-el) 26.2 % LVAd ap2 43.9 cm\S\2 LVLd ap2 10.4 cm EDV(MOD-sp2) 152.6 ml EDV(sp2-el) 156.9 ml LVAs ap2 35.0 cm\S\2 LVLs ap2 10.0 cm ESV(MOD-sp2) 98.1 ml ESV(sp2-el) 104.2 ml EF(MOD-sp2) 35.7 % EF(sp2-el) 33.6 % LVLd %diff 2.3 % EDV(MOD-bp) 158.5 ml LVLs %diff 1.6 % ESV(MOD-bp) 113.0 ml EF(MOD-bp) 28.7 % SV(MOD-sp4) 43.8 ml SI(MOD-sp4) 25.1 ml/m\S\2 SV(MOD-sp2) 54.4 ml SI(MOD-sp2) 31.1 ml/m\S\2 SV(MOD-bp) 45.5 ml SI(MOD-bp) 26.0 ml/m\S\2 SV(sp4-el) 47.5 ml SI(sp4-el) 27.2 ml/m\S\2 SV(sp2-el) 52.7 ml SI(sp2-el) 30.1 ml/m\S\2 Doppler Measurements and Calculations MV E max saira 78.6 cm/sec MV dec time 0.15 sec Ao V2 max 149.9 cm/sec Ao max PG 9.0 mmHg Ao max PG (full) 6.3 mmHg LV V1 max PG 2.7 mmHg LV V1 max 82.0 cm/sec TR max saira 191.4 cm/sec
--- NOTE | 2016-04-24 14:19 | DIAGNOSTIC IMAGING REPORT ---
CHEST ONE VIEW PORTABLE CLINICAL HISTORY: hypoxia ELEVATED TROPONIN. NAUSEA. COMPARISON STUDY: 10/25/2014 FINDINGS: The heart remains enlarged. There is peripheral calcification at the lower left heart border suggestive of an ventricular aneurysm. There is a left subclavian pacer/defibrillator present. There is no overt failure. There is no lobar consolidation. There are minor basilar atelectatic changes.[ IMPRESSION: 1. 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 No evidence of focal pulmonary consolidation. 3. No evidence of overt failure. Electronically signed by: Praveen Avilez M.D. 04/24/2016 2:18 PM Dictated Date/Time: 04/24/2016 2:16 PM
[2016-04-24 16:06] LABS: HEMATOCRIT 25.8 % (37-47)
--- NOTE | 2016-04-24 16:45 | Urology Consultation ---
History General Date of Service: Apr 24, 2016. Chief Complaint: gross hematuria Primary Care Physician: Patria Leslie M.D. Pt seen a urologist before?: No History of Present Illness I am asked by Tammie Ramos to evaluate and treat patient for hematuria. She is admitted with nausea and weakness and very high INR of 8. She is on coumadin for bilateral PE. She has had nausea for 3 days and has been eating next to nothing but did not adjust her coumadin dose. She had a ct scan upon admission and there are nonspecific thickening noted in the upper collecting systems ureter and renal pelvis. She is a lifelong smoker, teens to age 76. She has not had gross hematuria before. She has no kidney pain but a lot of joint left should and leg foot pain. Imaging Imaging: CT Laboratory Results Past 24 Hours Test 04/23/16 17:28 04/23/16 21:20 04/24/16 03:00 04/24/16 09:45 Range/Units Urine Color RED Urine Appearance CLOUDY CLEAR Urine pH 6.5 4.5-7.5 Urine Specific [place] > 1.045 1.000-1.030 Urine Protein 2+ NEG Urine Glucose (UA) NEG NEG Urine Ketones NEG NEG Urine Occult Blood 3+ NEG Urine Nitrite NEG NEG Urine Bilirubin NEG NEG Urine Urobilinogen NEG NEG Urine Leukocyte Esterase NEG NEG Urine WBC (Auto) 5-10 0-5 /hpf Urine RBC (Auto) >30 0-4 /hpf Urine Hyaline Casts (Auto) 0 0-5 /lpf Urine Epithelial Cells (Auto) >30 0-5 /lpf Urine Bacteria (Auto) NEG NEG Urine Renal Epithelial Cells 0-5 /lpf Urine Pathogenic Casts 0 /lpf Hemoglobin 8.9 8.8 8.2 12.0-16.0 g/dL Hematocrit 28.3 28.8 26.5 37-47 % Prothrombin Time 26.1 15.1 9.0-12.0 SECONDS Prothromb Time International Ratio 2.4 1.4 0.9-1.1 Total Creatine Kinase 75 72 26-192 U/L Creatine Kinase MB 0.9 1.0 0.5-3.6 ng/ml Creatine Kinase MB Ratio 1.2 1.4 0-3.0 Troponin I 0.161 0.092 0-0.045 ng/ml White Blood Count 8.53 4.8-10.8 K/uL Red Blood Count 3.24 4.2-5.4 M/uL Mean Corpuscular Volume 88.9 80-100 fL Mean Corpuscular Hemoglobin 27.2 25-34 pg Mean Corpuscular Hemoglobin Concent 30.6 32-36 g/dl RDW Standard Deviation 53.0 36.4-46.3 fL RDW Coefficient of Variation 16.2 11.5-14.5 % Platelet Count 214 130-400 K/uL Mean Platelet Volume 10.4 7.4-10.4 fL Sodium Level 147 136-145 mmol/L Potassium Level 4.1 3.5-5.1 mmol/L Chloride Level 108 98-107 mmol/L Carbon Dioxide Level 31 21-32 mmol/L Anion Gap 8.0 3-11 mmol/L Blood Urea Nitrogen 23 7-18 mg/dl Creatinine 1.10 0.60-1.20 mg/dl Est Creatinine Clear Calc Drug Dose 38.3 ml/min Estimated GFR () 54.9 Estimated GFR (Non- 47.4 BUN/Creatinine Ratio 20.8 10-20 Random Glucose 114 70-99 mg/dl Calcium Level 8.3 8.5-10.1 mg/dl Magnesium Level 2.5 1.8-2.4 mg/dl Test 04/24/16 15:45 Range/Units Hemoglobin 8.1 12.0-16.0 g/dL Hematocrit 25.8 37-47 % Microbiology Results 04/23/16 Urine Culture - Preliminary, Resulted PIN-POINT GROWTH PRESENT, REINCUBATING. Labs were reviewed and are within normal limits unless listed below. Labs are available in the chart and at [facility] Problem List Medical Problems: (1) Acute coronary syndrome Status: Acute (2) Chest pain Status: Acute (3) Hematuria Status: Acute (4) Hypokalemia Status: Acute (5) Left flank pain Status: Acute (6) Nausea Status: Acute (7) Supratherapeutic INR Status: Acute (8) Ventricular tachycardia Status: Acute (9) Weakness Status: Acute Past History congestive heart failure, coronary artery disease, high cholesterol, hypertension, myocardial infarction, pulmonary embolism Past Surgical History: spinal surgery Family History Heart disease Social History Hx Tobacco Use In Past Year?: No Smoking: quit greater than 1 year Alcohol: socially (very infrequent wine) Marital status: single, Housing status: lives alone Occupation status: retired Immunizations History of Influenza Vaccine: Yes Influenza Vaccine Date: Jan 12, 2014 History of Tetanus Vaccine?: Yes Tetanus Immunization Date: Jun 16, 2011 History of Pneumococcal: Pneumococcal Date: Jan 20, 2012 History of Hepatitis B Vaccine: No History of MDRO No Allergies Coded Allergies: Azithromycin (Verified Allergy, Severe, ANAPHYLAXIS, 10/30/15) NSAIDs (Verified Allergy, Severe, HIVES, 10/30/15) Aspirin (Verified Allergy, Unknown, hives, 10/30/15) Erythromycin (Verified Allergy, Unknown, ., 10/30/15) Gabapentin (Verified Allergy, Unknown, myoclonus, 10/30/15) Medications Home Medications: Home Meds and Scripts Medications Dose Route/Sig Max Daily Dose Days Date Category Dose Instructions Lasix (Furosemide) 40 Mg Tab 10 Mg PO UD 04/23/16 Reported Protonix (Pantoprazole) 40 Mg Tab 1 Tab PO BID 30 04/23/16 Reported Ursodiol 300 Mg Cap 300 Mg PO BID 04/23/16 Reported Jantoven (Warfarin Sodium) 5 Mg Tab 2.5 Mg PO 3XWK 04/23/16 Reported Coumadin (Warfarin Sod) 5 Mg Tab 5 Mg PO 4XWK 04/23/16 Reported Zofran (Ondansetron HCl) 4 Mg Tab 8 Mg PO Q8 PRN 10/30/15 Reported Prednisone 5 Mg Tab 7.5 Mg PO DAILY 08/20/15 Reported 1 & 1/2 tablet dose Cordarone (Amiodarone Hcl) 200 Mg Tab 200 Mg PO DAILY 08/20/15 Reported Micro-K Ext Rel (Potassium Chloride) 10 Meq Capcr 20 Meq PO DAILY 02/03/15 Reported Ultram (Tramadol HCl) 50 Mg Tab 50 Mg PO Q6H PRN 02/03/15 Reported Nitro-Dur 0.2 Mg/Hr (Nitroglycerin) Patch 1 Patch TD ONAMOFFPM 06/20/12 Reported APPLY ONE PATCH FOR 12 TO 14 HOURS DAILY. Toprol Xl (Metoprolol Succinate) 25 Mg Tab 25 Mg PO QAM 04/01/12 Reported Nitrostat (Nitroglycerin) 0.4 Mg Sub 0.4 Mg UT UD PRN 09/22/[address] ONE TABLET UNDER THE TONGUE EVERY 5 TO 10 MINUTES FOR UP TO 3 DOSES IF NEEDED FOR CHEST PAIN. Plavix (Clopidogrel Bisulfate) 75 Mg Tab 75 Mg PO DAILY 07/15/11 Reported Inpatient Medications: Current Inpatient Medications Medications (Trade) Dose Ordered Sig/[place] Route Start Time Stop Time Status Last Admin Dose Admin Ioversol (Optiray 320) 100 ml UD PRN IV 04/23/16 15:15 04/27/16 15:14 Acetaminophen (Tylenol Tab) 650 mg Q4H PRN PO 04/23/16 17:30 05/23/16 17:29 Ondansetron HCl (Zofran Inj) 4 mg Q6H PRN IV 04/23/16 17:30 05/23/16 17:29 04/23/16 19:18 4 MG Amiodarone HCl (Cordarone Tab) 200 mg DAILY PO 04/24/16 09:00 05/24/16 08:59 04/24/16 08:46 200 MG Metoprolol Succinate (Toprol Xl Tab) 25 mg QAM PO 04/24/16 09:00 05/24/16 08:59 Nitroglycerin (Nitro-Dur 0.2 Mg/Hr Patch) 1 patch DAILY TD 04/24/16 09:00 05/24/16 08:59 04/24/16 08:47 1 PATCH Pantoprazole Sodium (Protonix Tab) 40 mg BID PO 04/23/16 21:00 05/23/16 20:59 04/24/16 08:46 40 MG Prednisone (PredniSONE TAB) 7.5 mg DAILY PO 04/24/16 09:00 05/24/16 08:59 04/24/16 08:46 7.5 MG Tramadol HCl (Ultram Tab) 50 mg Q6H PRN PO 04/23/16 17:45 05/23/16 17:44 04/23/16 20:18 50 MG Ursodiol 300 mg 300 mg BID PO 04/23/16 21:00 05/23/16 20:59 04/24/16 08:47 300 MG Ceftriaxone Sodium/Dextrose (Rocephin Inj/ Dextrose Add-[place] 50ML) 50 ml @ 100 mls/hr DAILY@1800 IV 04/24/16 18:00 04/28/16 17:59 Miscellaneous (Remove Nitro-Dur Patch) 1 ea DAILY@21 N/A 04/23/16 21:00 3/3/17 20:59 04/23/16 21:54 1 EA Diphenhydramine HCl (Benadryl Syrup) 12.5 mg Q6H PRN PO 04/24/16 01:00 05/24/16 00:59 04/24/16 01:19 12.5 MG Review of Systems Review of Systems Constitutional: No chills, No fever Neurological: + dizzy, + numbness/tingling (left arm and shoulder), No passing out Gastrointestinal: + abdominal pain, + indigestion, + nausea, No constipation, No diarrhea, No vomiting Cardiovascular: No chest pain, No irregular heartbeat, No palpitations, No swelling ankles/feet Respiratory: No chronic cough, No shortness of breath Blood / Lymphatic: + bleed easily (severe bruising all over her body) Female : + blood in urine, + frequent urination Physical Exam Vital Signs: Vital Signs Past 12 Hours Date Time Temp Pulse Resp B/P Pulse Ox O2 Delivery O2 Flow Rate FiO2 04/24/16 16:08 59 18 116/53 96 Room Air 04/24/16 12:00 Nasal Cannula 4.0 04/24/16 11:20 36.8 56 18 102/57 96 04/24/16 08:21 36.5 56 18 119/64 100 04/24/16 08:00 Nasal Cannula 4.0 Physical Exam: General Appearance: WD/WN, no apparent distress, + obese Eyes: bilateral eyes normal inspection ENT: hearing grossly normal Neck: supple, no adenopathy, trachea midline Respiratory/Chest: no respiratory distress, no accessory muscle use Gastrointestinal: Abdomen: normal abdomen Bladder: normal bladder Renal: normal renal Hernia: absent hernia Liver: normal liver Extremities: no pedal edema, normal capillary refill, + pertinent finding ( bruising extensive on both feet and shins) Neurologic/Psychiatric: alert, normal mood/affect, oriented x 3 Skin: + pertinent finding (bruising on all limbs ) Lymphatic: no adenopathy Assessment & Plan Assessment & Plan gross hematuria with very high INR will need to repeat eval once she is back to normal coags. I looked at ct and read report. no clear tumor but urothelium is thick she says her operative options re limited by severe heart disease. I will see her in clinic in one month and decide on further workup The thickening of urothelium could be tumors bleeding or just spontaneous bleeding from high inr. Her long smoking history makes urothelial malignancy possible. I do not plan any intervention this admission so she may eat. she says her urine is already becoming less bloody in response to the vit K
[2016-04-24] MEDS: CEFTRIAXONE SOD INJ 1 GM in DEXTROSE 5% ADD-VANTAGE 50ML 50 ML IV SCH (18:05)
--- NOTE | 2016-04-24 18:59 | Progress Note ---
Internal Med Progress Note Date of Service: Apr 24, 2016. Provider Documentation: SUBJECTIVE: Patient is seen and examined at bedside. She states nausea has resolved. Poor historian. States having left should and left foot pain, denies fall. Denies any chest pain, SOB, palpitations, dizziness. "My urine is pink which was red yesterday". Denies any flank pain. OBJECTIVE: Vital Signs-as noted below Physical Exam: General Appearance:Fragile, chronically ill appearing, no apparent distress Head: normocephalic, Atraumatic Eyes: normal inspection, EOMI, PERRLA Neck: supple, Trachea midline Respiratory/Chest: Normal breath sounds, CTA, No accessory muscle use Cardiovascular: S1, S2, + murmur Abdomen/GI:Soft, Non tender, Bowel sounds present, No flank tenderness Extremities/Musculoskelatal:normal inspection, 1-2 pedal edema bilateral Neurologic/Psych:AAOX3, grossly no focal neurological deficits Skin: normal color, warm Lab data as noted below. 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 GROSS HEMATURIA: Likely secondary to supra therapeutic INR-Coumadin induced, Also to rule out malignancy ACUTE BLOOD LOSS ANEMIA: Secondary to above CT scan showed Mild left-sided hydronephrosis, mild proximal uroepithelial thickening Given history of smoking- need to rule out uroepithelial tumor Appreciate Urology input Needs follow up with urology as outpatient No plan for intervention Poor surgical candidate given history of severe heart disease Continue Rocephin empirically FU urine culture Monitor H&H Hold Plavix, Coumadin SUPRATHERAPEUTIC INR INR >8: on admission S/P 2 units FFP and Vit K Currently INR:1.4 Monitor H&H Transfuse PRBCs PRN Hold Plavix, Coumadin ELEVATED TROPONIN - H/O CAD Patient denies any chest pain Troponin: Trending down Plavix held as + hematuria Continue BB ECHO: extensive, thinned and very expanded anterorseptal, anterior and anterolateral 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 Will consult cardiology SEVERE CHRONIC SYSTOLIC CHF EF: 20-25% H/O ICD placement Doesn't seem to be decompensated Lasix held secondary to hypotension CKD III Stable avoid nephrotoxic agents H/O SUSTAINED VENTRICULAR TACHYCARDIA continue amiodarone continue 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, H/O APICAL THROMBUS hold Coumadin for now secondary to hematuria and supratherapeutic INR DVT Px: SCDs for now CODE STATUS: LEVEL 3 NO MECHANICAL VENTILATION per my discussion with the patient and her daughter Vital Signs: Date Time Temp Pulse Resp B/P Pulse Ox O2 Delivery O2 Flow Rate FiO2 04/24/16 16:08 59 18 116/53 96 Room Air 04/24/16 12:00 Nasal Cannula 4.0 04/24/16 11:20 36.8 56 18 102/57 96 04/24/16 08:21 36.5 56 18 119/64 100 04/24/16 08:00 Nasal Cannula 4.0 04/24/16 04:21 37.1 54 16 111/64 100 Nasal Cannula 4.0 04/24/16 04:00 Nasal Cannula 4.0 04/24/16 01:29 36.5 57 14 94/54 96 Nasal Cannula 4.0 Humidified Air 04/24/16 00:20 60 16 100/53 91 04/24/16 00:00 Nasal Cannula 4.0 04/23/16 23:59 36.9 59 20 101/58 94 4.0 04/23/16 23:27 65 16 126/63 97 4.0 04/23/16 23:11 37.3 66 18 108/54 99 4.0 04/23/16 19:28 36.4 65 20 133/73 Nasal Cannula 4.0 Lab Results: Results Past 24 Hours Test 04/23/16 21:20 04/24/16 03:00 04/24/16 09:45 04/24/16 15:45 Range/Units Hemoglobin 8.9 8.8 8.2 8.1 12.0-16.0 g/dL Hematocrit 28.3 28.8 26.5 25.8 37-47 % Prothrombin Time 26.1 15.1 9.0-12.0 SECONDS Prothromb Time International Ratio 2.4 1.4 0.9-1.1 Total Creatine Kinase 75 72 26-192 U/L Creatine Kinase MB 0.9 1.0 0.5-3.6 ng/ml Creatine Kinase MB Ratio 1.2 1.4 0-3.0 Troponin I 0.161 0.092 0-0.045 ng/ml White Blood Count 8.53 4.8-10.8 K/uL Red Blood Count 3.24 4.2-5.4 M/uL Mean Corpuscular Volume 88.9 80-100 fL Mean Corpuscular Hemoglobin 27.2 25-34 pg Mean Corpuscular Hemoglobin Concent 30.6 32-36 g/dl RDW Standard Deviation 53.0 36.4-46.3 fL RDW Coefficient of Variation 16.2 11.5-14.5 % Platelet Count 214 130-400 K/uL Mean Platelet Volume 10.4 7.4-10.4 fL Sodium Level 147 136-145 mmol/L Potassium Level 4.1 3.5-5.1 mmol/L Chloride Level 108 98-107 mmol/L Carbon Dioxide Level 31 21-32 mmol/L Anion Gap 8.0 3-11 mmol/L Blood Urea Nitrogen 23 7-18 mg/dl Creatinine 1.10 0.60-1.20 mg/dl Est Creatinine Clear Calc Drug Dose 38.3 ml/min Estimated GFR () 54.9 Estimated GFR (Non- 47.4 BUN/Creatinine Ratio 20.8 10-20 Random Glucose 114 70-99 mg/dl Calcium Level 8.3 8.5-10.1 mg/dl Magnesium Level 2.5 1.8-2.4 mg/dl Microbiology Results 04/23/16 Urine Culture - Preliminary, Resulted PIN-POINT GROWTH PRESENT, REINCUBATING.
[2016-04-24] MEDS: TRAMADOL HCL 50 MG TAB PO PRN (22:47)
[2016-04-24 23:09] LABS: HEMATOCRIT 28.6 % (37-47)
[2016-04-25] VITALS (10 sets, daily range): BP systolic 94–122; BP diastolic 45–66; PULSE 61–75; TEMP 36.5–37.5; O2SAT 92–98
[2016-04-25 07:13] LABS: BASO % 0.1 %; BASO ABS # 0.01 K/uL (0-0.2); EOS % 1.3 %; HEMATOCRIT 24.7 % (37-47); IG% 0.4 %; LYMPH % 11.4 %; LYMPH ABS # 0.89 K/uL (1.2-3.4); MEAN CELL VOLUME 88.2 fL (80-100); MEAN CORPUSCULAR HEMOGLOBIN 26.4 pg (25-34); MEAN PLATELET VOLUME 10.8 fL (7.4-10.4); MONO % 11.1 %; NEUT % 75.7 %; PLATELET COUNT 191 K/uL (130-400); WHITE BLOOD COUNT 7.78 K/uL (4.8-10.8)
[2016-04-25 07:43] LABS: COMPLETE YES
[2016-04-25 07:46] LABS: CALCIUM 8.1 mg/dl (8.5-10.1); CREATININE 1.1 mg/dl (0.60-1.20); POTASSIUM 3.7 mmol/L (3.5-5.1)
[2016-04-25] MEDS: METOPROLOL SUCC 25MG EXT REL TAB PO SCH (09:00)
[2016-04-25] MEDS: NITROGLYCERIN 0.2 MG/HR PATCH TD SCH (09:30)
[2016-04-25] MEDS: AMIODARONE 200 MG TAB PO SCH (09:31)
[2016-04-25] MEDS: PANTOprazole SOD 40 MG TAB PO SCH ×2 (09:31→21:27)
[2016-04-25] MEDS: URSODIOL 300 MG CAP PO SCH ×2 (09:31→21:27)
--- NOTE | 2016-04-25 09:58 | Cardiology Consultation ---
Cardiology Consultation Cardiology Consultation: Date: 04/25/16 Requesting Physician: Dr. Becker Attending Chief Strategy Officer: Dr. Mayfield History of Present Illness: Cady Nur is a complex 81 year old female who is well known to our cardiology service with extensive cardiac history as below. She was admitted to [facility] with persistent nausea, lack of appetite x 3 days, and hematuria. INR > 8. CT scan revealed questionable left ureteral thickening ( neoplasm vs hemorrhage). Uorlogy has been consulted and recommend f/u as outpatient once INR is not elevated, as this may be cause of significant hematuria. On arrival she was found to have minimally elevated troponin, consistent with significant underlying ischemic heart disease and likely demand ischemia with anemia. She denied chest pain or SOB. No orthopnea, PND or increased LE edema. Coumadin on hold. Received Vit K for reversal. Plavix also on hold. At time of consult, patient notes bruising of jaw, with mild discomfort when eating, and LE bruising. No recent falls or injury. She reports hematuria improving. No dysuria. She denies chest pain or SOB. She notes mild LE edema. Does not appear to be getting home dose furosemide since admission. Review of Systems: See HPI for pertinent positives. All other 10 point review of systems is negative. Past Medical/Surgical History: 1.ASCVD 2.May 2011 acute anteroseptal and anteroapical myocardial infarction, documented occlusion of early mid LAD. Attempts to open the occluded LAD were not successful and complicated by perforation. Moderate atherosclerotic disease was observed elsewhere with 30-50% narrowing throughout the RCA, a 50% proximal LCX lesion, and a 75-85% mid LCX lesion observed. There was apparently discusion with cardiothoracic surgeons at both [facility] and [facility] who recommended against CABG. 3.Post AR acute pericarditis and fluid retention. 4.Ischemic cardiomyopathy with an LVEF of 15-20%. 5.Dresslers Syndrome. 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 7.NYHA Class III+ congestive heart failure. Narrow QRS complex. 8.Patient status post November 2011 Cardioverter-defibrillator implantation by Dr. Montero using a Medtronic Model D 284 VRC, Serial # [id number] Device with a Medtronic Model 6935-58, Serial # [id number] RV lead. 9.Symptomatic sustained ventricular tachycardia in January 2015; initiation of amiodarone in January 2015 at [facility]. 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 10.Mild mitral and tricuspid regurgitation. 11.Multiple bilateral PE's in June 2011. 12.Hypertension. 13.Dyslipidemia. 14.Impaired glucose tolerance. 15.Probable COPD, past chronic tobacco abuse x 45 years. 16.Chart history of peripheral vascular disease. 17.Reflux esophagitis. 18.Giant cell arteritis. 19.Urticaria with ASA. 20.Anemia. 21.Chronic renal insufficiency. 22.Chronic low back pain s/p lumbar spine surgery in 1990. 23.Cataract extraction. Family History: Positive for CAD in her mother and father. Social History: Reformed smoker with the AR. as of March 2011. Social alcohol. No illegal drug use. 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 Review of patient's allergies indicates: Aspirin Hives Diclofenac Hives Gabapentin Neuro complications (Please comment) Myoclonus, leg weakness Zithromax [Azithromycin] Yeast infection Outpatient medications: Reported Home Medications Medications Dose Route/Sig Max Daily Dose Days Date Category Dose Instructions Lasix (Furosemide) 40 Mg Tab 10 Mg PO UD 04/23/16 Reported Protonix (Pantoprazole) 40 Mg Tab 1 Tab PO BID 30 04/23/16 Reported Ursodiol 300 Mg Cap 300 Mg PO BID 04/23/16 Reported Jantoven (Warfarin Sodium) 5 Mg Tab 2.5 Mg PO 3XWK 04/23/16 Reported Coumadin (Warfarin Sod) 5 Mg Tab 5 Mg PO 4XWK 04/23/16 Reported Zofran (Ondansetron HCl) 4 Mg Tab 8 Mg PO Q8 PRN 10/30/15 Reported Prednisone 5 Mg Tab 7.5 Mg PO DAILY 08/20/15 Reported 1 & 1/2 tablet dose Cordarone (Amiodarone Hcl) 200 Mg Tab 200 Mg PO DAILY 08/20/15 Reported Micro-K Ext Rel (Potassium Chloride) 10 Meq Capcr 20 Meq PO DAILY 02/03/15 Reported Ultram (Tramadol HCl) 50 Mg Tab 50 Mg PO Q6H PRN 02/03/15 Reported Nitro-Dur 0.2 Mg/Hr (Nitroglycerin) Patch 1 Patch TD ONAMOFFPM 06/20/12 Reported APPLY ONE PATCH FOR 12 TO 14 HOURS DAILY. Toprol Xl (Metoprolol Succinate) 25 Mg Tab 25 Mg PO QAM 04/01/12 Reported Nitrostat (Nitroglycerin) 0.4 Mg Sub 0.4 Mg UT UD PRN 09/22/[address] ONE TABLET UNDER THE TONGUE EVERY 5 TO 10 MINUTES FOR UP TO 3 DOSES IF NEEDED FOR CHEST PAIN. Plavix (Clopidogrel Bisulfate) 75 Mg Tab 75 Mg PO DAILY 07/15/11 Reported She is on Plavix due to urticaria with ASA She was unable to tolerate Zetia, prescribed in March 2012, secondary to myalgias/arthralgias. OBJECTIVE/PHYSICAL EXAMINATION: Last 8 Hrs Date Time Temp Pulse Resp B/P Pulse Ox O2 Delivery O2 Flow Rate FiO2 04/25/16 07:46 36.8 68 18 94/45 98 2.0 04/25/16 04:27 37.5 75 12 95/56 96 Nasal Cannula 2.0 04/25/16 04:00 Room Air General: A&Ox3. NAD. HEENT: Normocephalic. PER. Conjunctiva pink, sclera with mild pallor. Right jaw ecchymosis Neck: Normal JVP. No carotid bruits. Heart: RRR. Grade II/ systolic ejection murmur at the LLSB. No diastolic murmur. PMI is displaced laterally. Lungs: Diminished but clear. No wheeze. Abdomen: +BS. Soft. Nontender. No masses or organomegaly. Extremities: 1+ b/l LE edema with ecchymosis No clubbing. No cyanosis. Pulses: radial=2/4, posterior tibial=1/4. Data Reviewed: Telemetry reviewed - NSR with occ PVC and couplets. No sustained arrhythmias. EKG on admission: Normal sinus rhythm Left anterior fascicular block Left ventricular hypertrophy with QRS widening Anteroseptal infarct , age undetermined (cited on or before 31-JAN-2014) Chronic ST depression in Inferior leads Chronic Minor ST elevation in Lateral leads Abnormal ECG When compared with ECG of 30-OCT-2015 14:37, No significant change EKG, 04/25/16 repeat: Normal sinus rhythm Left axis deviation Nonspecific ST and T wave abnormality Abnormal ECG When compared with ECG of 24-APR-2016 07:08, T wave inversion less evident in Lateral leads Chest Xray on admission: IMPRESSION: 1. 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 No evidence of focal pulmonary consolidation. 3. No evidence of overt failure. Abd/pelvic CT on admission: IMPRESSION: 1. No evidence of bowel obstruction. No evidence of free air 2. Normal appendix. No evidence of acute diverticulitis. 3. Cholelithiasis 4. Complex 13 mm lower pole left renal cystic mass containing coarse calcifications 5. Mild left-sided hydronephrosis, mild proximal uroepithelial thickening, subtle diminished left-sided nephrogram, and subtle increased density of the left proximal ureter. No discrete calculus is visualized. Diagnostic considerations include ureteral hemorrhage, ureteral neoplasm, radiolucent or recently passed calculus, as well as renal infection. Urological consultation is recommended. Echocardiogram reviewed, dated 04/24/[address] Ramsey, during this admission: Compared to prior study, there is no significant change. * -- Conclusions -- * The left ventricle is mildly dilated. * There is moderate concentric left ventricular hypertrophy. * There is an extensive, thinned and very expanded anteroseptal, anterior and anterolateral 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. Basilar segments contract normally * Left ventricular systolic function is severely reduced. * Ejection Fraction = 20-25%. Last 24 Hours Test 04/24/16 09:45 04/24/16 15:45 04/24/16 23:00 04/25/16 06:28 Hemoglobin 8.2 g/dL 8.1 g/dL 8.8 g/dL 7.4 g/dL Hematocrit 26.5 % 25.8 % 28.6 % 24.7 % White Blood Count 7.78 K/uL Red Blood Count 2.80 M/uL Mean Corpuscular Volume 88.2 fL Mean Corpuscular Hemoglobin 26.4 pg Mean Corpuscular Hemoglobin Concent 30.0 g/dl Platelet Count 191 K/uL Mean Platelet Volume 10.8 fL Neutrophils (%) (Auto) 75.7 % Lymphocytes (%) (Auto) 11.4 % Monocytes (%) (Auto) 11.1 % Eosinophils (%) (Auto) 1.3 % Basophils (%) (Auto) 0.1 % Neutrophils # (Auto) 5.89 K/uL Lymphocytes # (Auto) 0.89 K/uL Monocytes # (Auto) 0.86 K/uL Eosinophils # (Auto) 0.10 K/uL Basophils # (Auto) 0.01 K/uL RDW Standard Deviation 52.9 fL RDW Coefficient of Variation 16.3 % Immature Granulocyte % (Auto) 0.4 % Immature Granulocyte # (Auto) 0.03 K/uL Red Blood Cell Morphology Unremarkable Sodium Level 143 mmol/L Potassium Level 3.7 mmol/L Chloride Level 107 mmol/L Carbon Dioxide Level 28 mmol/L Anion Gap 8.0 mmol/L Blood Urea Nitrogen 23 mg/dl Creatinine 1.10 mg/dl Est Creatinine Clear Calc Drug Dose 38.4 ml/min Estimated GFR () 54.9 Estimated GFR (Non- 47.4 BUN/Creatinine Ratio 21.0 Random Glucose 85 mg/dl Calcium Level 8.1 mg/dl Prior Data: February 04, 2015 TTE Interpretation Summary (as per Dr. Araiza). Technically difficult. Sinus bradycardia was present at the time of the examination. The left ventricle was described as moderately dilated. There was severe reduction in left ventricular systolic function, EF 15 to 20%. There was no left ventricular mural thrombus. There was an extensive, thin, and very expanded katya septum, anterior common anterior lateral infarct with large apical aneurysm. There was also mild mitral regurgitation. When compared to the prior study dated September 23, 2014 there was no significant interval change. Device interrogation on 01/24/2016 demonstrated appropriate function with adequate battery reserve. Batter Voltage was 3.11 V with an [employer] of 2.63 V. No VT/FVT/VF noted. Backup pacemaker set VVI with a lower rate of 40 bpm. IMPRESSION and PLAN: 1. Hematuria in setting of supratherapeutic INR > 8. -left ureteral thickening - neoplasm/lesion vs hemorrhage -urology consulted -high risk for surgical intervention -follow up as outpatient once INR and hematuria improves -Coumadin and Plavix on hold for now. Will need to resume prior to discharge 2. Anemia of chronic disease, with interval decline in H&H given hematuria. -Hbg 7.4. -will give 1 unit PRBC's this AM with 20 mg IV furosemide post infusion -recheck hbg this afternoon 2. Compensated systolic congestive heart failure signs and symptoms in a patient with a history of very tenuous volume issues. -She has not been receiving home dose furosemide - will resume furosemide 10 mg - 1 tab 3 days per week and supplement potassium. 3. Mildly elevated troponin, consistent with severe ischemic cardiomyopathy, and likely demand ischemia in setting of anemia and illness. LVEF of 15-20%. NYHA Class III-IV congestive heart failure. Narrow QRS complex. -echocardiogram unchanged -no anginal symptoms currently -unable to take ASA (allergy), on plavix which is on hold. Will need to resume once hematuria improves 4.Large LV aneurysm with spontaneous contrast noted consistent with low flow state. -will need to resume Coumadin as hematuria improves 5.Status post November 2011 Cardioverter-defibrillator implantation 6.Symptomatic sustained ventricular tachycardia in January 2015; initiation of amiodarone in January 2015 at [facility]. 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 -continue amiodarone 100 mg daily (home dose per records) 7. Chronic renal dysfunction 8.Multiple bilateral PE's in June 2011. 9.Hypertension 11.Dyslipidemia - intolerance to statins Case to be discussed with Dr. Mayfield. Will follow. (Yvonne Garcia PAAliyahC) Cardiology attending: Pt seen and examined, agree with findings and assessment as per Yvonne Bae. Complex cardiac hx with severe ischemic cardiomyopathy but stable. Chronic troponin elevation. Significant anemia with antiplatelet and anticoagulation held. Would transfuse to achieve a Hgb >9. Lasix after each transfusion, 20mg IV. Will likely start a trial of heparin prior to restarting coumadin once hgb has stabilized. (Ramiro Mayfield, D.O.)
[2016-04-25] MEDS ORDERED: POTASSIUM CHLORIDE 20 MEQ TABCR PO ONE (10:30)
[2016-04-25] MEDS: FUROSEMIDE INJ 20 MG in SYRINGE 0 ML IV SCH ×2 (10:42→13:44)
[2016-04-25] MEDS: FUROSEMIDE 20 MG TAB PO SCH (12:43)
[2016-04-25 16:07] LABS: HEMATOCRIT 25.1 % (37-47)
--- NOTE | 2016-04-25 17:29 | Progress Note ---
Internal Med Progress Note Date of Service: Apr 25, 2016. Provider Documentation: SUBJECTIVE: Patient is seen and examined at bedside. Denies any chest pain, SOB, palpitations, dizziness. Reports hematuria is improving. OBJECTIVE: Vital Signs-as noted below Physical Exam: General Appearance:Fragile, chronically ill appearing, no apparent distress Head: normocephalic, Atraumatic Eyes: normal inspection, EOMI, PERRLA Neck: supple, Trachea midline Respiratory/Chest: Normal breath sounds, CTA, No accessory muscle use Cardiovascular: S1, S2, + murmur Abdomen/GI:Soft, Non tender, Bowel sounds present, No flank tenderness Extremities/Musculoskelatal:normal inspection, 1-2 pedal edema bilateral Neurologic/Psych:AAOX3, grossly no focal neurological deficits Skin: normal color, warm Lab data as noted below. ASSESSMENT & PLAN: Patient is an 81 yr old female with multiple comorbidities presents with nausea for 1 day and is found to have hematuria, supra therapeutic INR-on long-term anticoagulation for PE. GROSS HEMATURIA: Likely secondary to supra therapeutic INR-Coumadin induced, Also to rule out malignancy ACUTE BLOOD LOSS ANEMIA: Secondary to above CT scan showed Mild left-sided hydronephrosis, mild proximal uroepithelial thickening Given history of smoking- need to rule out uroepithelial tumor Appreciate Urology input Needs follow up with urology as outpatient No plan for intervention Poor surgical candidate given history of severe heart disease Continue Rocephin empirically FU urine culture: karuna hobson UTI Monitor H&H Hold Plavix, Coumadin S/P one unit PRBC today SUPRATHERAPEUTIC INR INR >8: on admission S/P 2 units FFP and Vit K I unit PRBC today Currently INR:1.4 Monitor H&H, INR Transfuse PRBCs PRN to keep Hb >9.0 Hold Plavix, Coumadin ELEVATED TROPONIN - H/O CAD Patient denies any chest pain Troponin: Trending down Plavix held as + hematuria Continue BB ECHO: extensive, thinned and very expanded anterorseptal, anterior and anterolateral 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 Appreciate cardiology help SEVERE CHRONIC SYSTOLIC CHF EF: 20-25% H/O ICD placement Doesn't seem to be decompensated Continue Lasix CKD III Stable avoid nephrotoxic agents H/O SUSTAINED VENTRICULAR TACHYCARDIA continue amiodarone continue 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, H/O APICAL THROMBUS hold Coumadin for now secondary to hematuria and supratherapeutic INR Need to resume Coumadin prior to discharge Will consider to start Heparin if Hb stable and hematuria resolves DVT Px: SCDs for now CODE STATUS: LEVEL 3 NO MECHANICAL VENTILATION per my discussion with the patient and her daughter Vital Signs: Date Time Temp Pulse Resp B/P Pulse Ox O2 Delivery O2 Flow Rate FiO2 04/25/16 15:42 37.0 62 18 101/56 98 Nasal Cannula 2.0 Humidified Oxygen 04/25/16 13:30 64 121/62 04/25/16 13:02 61 122/63 04/25/16 12:03 68 107/52 04/25/16 11:33 63 110/54 04/25/16 11:19 36.8 62 16 110/54 04/25/16 11:06 36.5 62 18 108/56 98 2.0 04/25/16 08:00 Nasal Cannula 2.0 04/25/16 07:46 36.8 68 18 94/45 98 2.0 04/25/16 04:27 37.5 75 12 95/56 96 Nasal Cannula 2.0 04/25/16 04:00 Room Air 04/24/16 23:59 Room Air 04/24/16 23:47 36.9 66 18 106/55 93 Room Air 04/24/16 20:00 Room Air 04/24/16 19:50 37.4 62 18 96/54 93 Room Air Lab Results: Results Past 24 Hours Test 04/24/16 23:00 04/25/16 06:28 04/25/16 16:00 Range/Units Hemoglobin 8.8 7.4 7.9 12.0-16.0 g/dL Hematocrit 28.6 24.7 25.1 37-47 % White Blood Count 7.78 4.8-10.8 K/uL Red Blood Count 2.80 4.2-5.4 M/uL Mean Corpuscular Volume 88.2 80-100 fL Mean Corpuscular Hemoglobin 26.4 25-34 pg Mean Corpuscular Hemoglobin Concent 30.0 32-36 g/dl Platelet Count 191 130-400 K/uL Mean Platelet Volume 10.8 7.4-10.4 fL Neutrophils (%) (Auto) 75.7 % Lymphocytes (%) (Auto) 11.4 % Monocytes (%) (Auto) 11.1 % Eosinophils (%) (Auto) 1.3 % Basophils (%) (Auto) 0.1 % Neutrophils # (Auto) 5.89 1.4-6.5 K/uL Lymphocytes # (Auto) 0.89 1.2-3.4 K/uL Monocytes # (Auto) 0.86 0.11-0.59 K/uL Eosinophils # (Auto) 0.10 0-0.5 K/uL Basophils # (Auto) 0.01 0-0.2 K/uL RDW Standard Deviation 52.9 36.4-46.3 fL RDW Coefficient of Variation 16.3 11.5-14.5 % Immature Granulocyte % (Auto) 0.4 % Immature Granulocyte # (Auto) 0.03 0.00-0.02 K/uL Red Blood Cell Morphology Unremarkable Sodium Level 143 136-145 mmol/L Potassium Level 3.7 3.5-5.1 mmol/L Chloride Level 107 98-107 mmol/L Carbon Dioxide Level 28 21-32 mmol/L Anion Gap 8.0 3-11 mmol/L Blood Urea Nitrogen 23 7-18 mg/dl Creatinine 1.10 0.60-1.20 mg/dl Est Creatinine Clear Calc Drug Dose 38.4 ml/min Estimated GFR () 54.9 Estimated GFR (Non- 47.4 BUN/Creatinine Ratio 21.0 10-20 Random Glucose 85 70-99 mg/dl Calcium Level 8.1 8.5-10.1 mg/dl
[2016-04-25] MEDS: CEFTRIAXONE SOD INJ 1 GM in DEXTROSE 5% ADD-VANTAGE 50ML 50 ML IV SCH (18:16)
[2016-04-25 23:31] LABS: HEMATOCRIT 25.8 % (37-47)
[2016-04-26] VITALS (12 sets, daily range): BP systolic 99–127; BP diastolic 44–77; PULSE 61–78; TEMP 36.7–37.1; O2SAT 91–100
[2016-04-26 06:11] LABS: BASO % 0.3 %; BASO ABS # 0.02 K/uL (0-0.2); HEMATOCRIT 25.1 % (37-47); IG% 0.4 %; LYMPH % 15.8 %; MEAN CELL VOLUME 88.1 fL (80-100); MEAN CORPUSCULAR HGB CONC 30.7 g/dl (32-36); MEAN PLATELET VOLUME 10.6 fL (7.4-10.4); MONO % 11.3 %; NEUT % 70.2 %; PLATELET COUNT 185 K/uL (130-400); RED BLOOD COUNT 2.85 M/uL (4.2-5.4); WHITE BLOOD COUNT 6.97 K/uL (4.8-10.8)
[2016-04-26 06:32] LABS: INR 1.3 (0.9-1.1); PROTHROMBIN TIME (PATIENT) 14.1 SECONDS (9.0-12.0)
[2016-04-26 06:39] LABS: BUN/CREATININE RATIO 21.2 (10-20); CALCIUM 8.2 mg/dl (8.5-10.1); CREATININE 0.92 mg/dl (0.60-1.20); POTASSIUM 3.8 mmol/L (3.5-5.1)
[2016-04-26 07:18] LABS: COMPLETE YES
[2016-04-26] MEDS: URSODIOL 300 MG CAP PO SCH ×2 (08:40→20:54)
[2016-04-26] MEDS: PANTOprazole SOD 40 MG TAB PO SCH ×2 (08:40→20:54)
[2016-04-26] MEDS: AMIODARONE 200 MG TAB PO SCH (08:40)
[2016-04-26] MEDS: METOPROLOL SUCC 25MG EXT REL TAB PO SCH (08:40)
[2016-04-26] MEDS: POTASSIUM CHLORIDE 20 MEQ TABCR PO SCH (08:40)
[2016-04-26] MEDS: NITROGLYCERIN 0.2 MG/HR PATCH TD SCH (08:41)
[2016-04-26] MEDS ORDERED: FUROSEMIDE INJ 20 MG in SYRINGE 0 ML IV SCH (10:00)
--- NOTE | 2016-04-26 10:50 | Progress Note ---
Internal Med Progress Note Date of Service: Apr 26, 2016. Provider Documentation: SUBJECTIVE: Patient is seen and examined at bedside. Feels tired but otherwise denies chest pain, SOB, palpitations, dizziness. Urine more clear this morning. OBJECTIVE: Vital Signs-as noted below Physical Exam: General Appearance:Fragile, chronically ill appearing, no apparent distress Head: normocephalic, Atraumatic Eyes: normal inspection, EOMI, PERRLA Neck: supple, Trachea midline Respiratory/Chest: Normal breath sounds, CTA, No accessory muscle use Cardiovascular: S1, S2, + murmur Abdomen/GI:Soft, Non tender, Bowel sounds present, No flank tenderness Extremities/Musculoskelatal:normal inspection, 1-2 pedal edema bilateral Neurologic/Psych:AAOX3, grossly no focal neurological deficits Skin: normal color, warm Lab data as noted below. ASSESSMENT & PLAN: Patient is an 81 yr old female with multiple comorbidities presents with nausea for 1 day and is found to have hematuria, supra therapeutic INR-on skilled nursing anticoagulation for PE. GROSS HEMATURIA: Likely secondary to supra therapeutic INR-Coumadin induced, Also to rule out malignancy ACUTE BLOOD LOSS ANEMIA: Secondary to above CT scan showed Mild left-sided hydronephrosis, mild proximal uroepithelial thickening Given history of smoking- need to rule out uroepithelial tumor Appreciate Urology input Needs follow up with urology as outpatient No plan for intervention Poor surgical candidate given history of severe heart disease Continue Rocephin empirically, will repeat UA FU urine culture: karuna no UTI Monitor H&H Hold Plavix, Coumadin S/P 2 units PRBC in total, one unit this morning Hb:7.7 this morning SUPRATHERAPEUTIC INR INR >8: on admission S/P 2 units FFP and Vit K I unit PRBC this morning Currently INR:1.3 Monitor H&H, INR Transfuse PRBCs PRN to keep Hb >9.0 Hold Plavix, Coumadin ELEVATED TROPONIN - H/O CAD Patient denies any chest pain Troponin: Trended down Plavix held as + hematuria Continue BB ECHO: extensive, thinned and very expanded anterorseptal, anterior and anterolateral 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 Appreciate cardiology help SEVERE CHRONIC SYSTOLIC CHF EF: 20-25% H/O ICD placement Doesn't seem to be decompensated Continue Lasix CKD III Stable avoid nephrotoxic agents H/O SUSTAINED VENTRICULAR TACHYCARDIA continue amiodarone continue 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, H/O APICAL THROMBUS hold Coumadin for now secondary to hematuria and supratherapeutic INR Need to resume Coumadin prior to discharge Will consider to start Heparin if Hb stable and hematuria resolves DVT Px: SCDs for now CODE STATUS: LEVEL 3 NO MECHANICAL VENTILATION per my discussion with the patient and her daughter Disposition: Continue to monitor in Tele Addendum: Patient had chest pain retrosternally this afternoon. Troponin and CKMB were elevated. Discussed the case with cardiology. Not a good surgical candidate. Plan to give a dose of lasix. Continue Nitro. Pain control with morphine. Can try another dose of lasix is symptoms persist. Vital Signs: Date Time Temp Pulse Resp B/P Pulse Ox O2 Delivery O2 Flow Rate FiO2 04/26/16 19:28 36.7 65 20 113/62 97 Nasal Cannula 2.0 04/26/16 15:53 36.7 66 20 127/67 94 Room Air 04/26/16 15:30 Nasal Cannula 2.0 04/26/16 12:00 Room Air 04/26/16 11:44 37.0 70 20 117/57 99 Nasal Cannula 2.0 04/26/16 10:18 62 18 112/65 99 2.0 04/26/16 09:32 62 18 115/77 100 2.0 04/26/16 08:30 36.9 61 18 110/52 98 2.0 04/26/16 08:20 Nasal Cannula 2.0 04/26/16 07:52 36.7 78 20 109/57 91 2.0 04/26/16 07:28 68 18 119/74 97 2.0 04/26/16 06:58 37.0 67 20 109/51 92 2.0 04/26/16 04:00 37.1 65 16 99/44 95 Room Air 04/26/16 04:00 Room Air 04/26/16 00:00 36.8 62 18 125/61 92 Room Air 04/26/16 00:00 Room Air Lab Results: Results Past 24 Hours Test 04/25/16 23:01 04/26/16 05:33 04/26/16 12:30 04/26/16 16:08 Range/Units Hemoglobin 7.9 7.7 9.6 12.0-16.0 g/dL Hematocrit 25.8 25.1 30.1 37-47 % White Blood Count 6.97 4.8-10.8 K/uL Red Blood Count 2.85 4.2-5.4 M/uL Mean Corpuscular Volume 88.1 80-100 fL Mean Corpuscular Hemoglobin 27.0 25-34 pg Mean Corpuscular Hemoglobin Concent 30.7 32-36 g/dl Platelet Count 185 130-400 K/uL Mean Platelet Volume 10.6 7.4-10.4 fL Neutrophils (%) (Auto) 70.2 % Lymphocytes (%) (Auto) 15.8 % Monocytes (%) (Auto) 11.3 % Eosinophils (%) (Auto) 2.0 % Basophils (%) (Auto) 0.3 % Neutrophils # (Auto) 4.89 1.4-6.5 K/uL Lymphocytes # (Auto) 1.10 1.2-3.4 K/uL Monocytes # (Auto) 0.79 0.11-0.59 K/uL Eosinophils # (Auto) 0.14 0-0.5 K/uL Basophils # (Auto) 0.02 0-0.2 K/uL RDW Standard Deviation 52.2 36.4-46.3 fL RDW Coefficient of Variation 16.3 11.5-14.5 % Immature Granulocyte % (Auto) 0.4 % Immature Granulocyte # (Auto) 0.03 0.00-0.02 K/uL Red Blood Cell Morphology Unremarkable Prothrombin Time 14.1 9.0-12.0 SECONDS Prothromb Time International Ratio 1.3 0.9-1.1 Sodium Level 142 136-145 mmol/L Potassium Level 3.8 3.5-5.1 mmol/L Chloride Level 107 98-107 mmol/L Carbon Dioxide Level 28 21-32 mmol/L Anion Gap 7.0 3-11 mmol/L Blood Urea Nitrogen 20 7-18 mg/dl Creatinine 0.92 0.60-1.20 mg/dl Est Creatinine Clear Calc Drug Dose 45.5 ml/min Estimated GFR () 68.2 Estimated GFR (Non- 58.8 BUN/Creatinine Ratio 21.2 10-20 Random Glucose 87 70-99 mg/dl Calcium Level 8.2 8.5-10.1 mg/dl Creatine Kinase MB Ratio 0-3.0 Test 2/4/17 18:24 04/26/16 20:05 Range/Units Creatine Kinase MB 8.7 0.5-3.6 ng/ml Troponin I 5.580 0-0.045 ng/ml
--- NOTE | 2016-04-26 11:14 | Cardiology Follow-Up ---
Subjective Subjective Date of Service: Apr 26, 2016. Pt evaluation today including: conversation w/ patient, physical exam, chart review, lab review, review of studies, review of inpatient medication list Additional Details: Pt seen and examined with her dog, Priscila, in her bed. States that she's feeling ok. Denies cp, sob, palpitations, lightheadedness or dizziness. Tele reviewed: sinus rhythm without arrhythmia or significant ectopy. Problem List Medical Problems: (1) Acute coronary syndrome Status: Acute (2) Chest pain Status: Acute (3) Hematuria Status: Acute (4) Hypokalemia Status: Acute (5) Left flank pain Status: Acute (6) Nausea Status: Acute (7) Supratherapeutic INR Status: Acute (8) Ventricular tachycardia Status: Acute (9) Weakness Status: Acute Review of Systems Respiratory: No cough, No dyspnea at rest, No dyspnea on exertion, No hemoptysis, No problem reported, No see HPI, No shortness of breath, No sputum, No wheezing Cardiac: No PND, No chest pain, No claudication, No edema, No orthopnea, No palpitations, No problem reported, No see HPI Neurologic: + problem reported Psychiatric: + problem reported Objective Vital Signs Last Vital Signs Documentation Date Time Temp Pulse Resp B/P Pulse Ox O2 Delivery O2 Flow Rate FiO2 04/26/16 10:18 62 18 112/65 99 2.0 04/26/16 08:30 36.9 04/26/16 08:20 Nasal Cannula Physical Exam: General Appearance: WD/WN, no apparent distress, + obese Eyes: bilateral eyes EOMI, bilateral eyes PERRL, bilateral eyes normal inspection ENT: normal ENT inspection, hearing grossly normal, pharynx normal Neck: supple, no adenopathy, thyroid normal, no JVD, no carotid bruits, trachea midline Respiratory/Chest: chest non-tender, lungs clear, normal breath sounds, no respiratory distress, no accessory muscle use Cardiovascular: regular rate, rhythm, + pertinent finding (distant) Abdomen: normal bowel sounds, non tender, soft, no organomegaly Extremities: normal inspection, no pedal edema, no calf tenderness, normal capillary refill, + pertinent finding (bruising extensive on both feet and shins ) 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 anemia given hx of ischemic cardiomyopathy, ideally Hgb should be above 9 received second unit of PRBC this AM given additional IV lasix after transfusion 2. ischemic cardiomyopathy stable 3. 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
[2016-04-26 12:52] LABS: HEMATOCRIT 30.1 % (37-47)
[2016-04-26] MEDS: TRAMADOL HCL 50 MG TAB PO PRN (16:13)
--- NOTE | 2016-04-26 18:01 | DIAGNOSTIC IMAGING REPORT ---
CHEST ONE VIEW PORTABLE CLINICAL HISTORY: chest pain dyspnea COMPARISON STUDY: 04/24/2016 FINDINGS: Moderate stable cardiomegaly. Implantable cardiac pacemaker/fibrillator. Lungs are generally are clear. Minimal atelectasis left base unchanged. IMPRESSION: Moderate stable cardiomegaly Electronically signed by: Zay Antony M.D. 04/26/2016 6:00 PM Dictated Date/Time: 04/26/2016 5:59 PM
[2016-04-26] MEDS: CEFTRIAXONE SOD INJ 1 GM in DEXTROSE 5% ADD-VANTAGE 50ML 50 ML IV SCH (18:26)
[2016-04-26] MEDS ORDERED: MoRPHine SULFATE 2 MG/ML CARP IM PRN (20:30)
[2016-04-26] MEDS ORDERED: MoRPHine SULFATE 2 MG/ML CARP IV PRN (20:30)
[2016-04-26] MEDS ORDERED: FUROSEMIDE INJ 40 MG in SYRINGE 0 ML IV ONE (20:45)
[2016-04-26 22:12] LABS: HEMATOCRIT 30.7 % (37-47)
[2016-04-27 00:26] LABS: URINE APPEARANCE CLOUDY (CLEAR); URINE BILIRUBIN NEG (NEG); URINE COLOR YELLOW; URINE NITRITE NEG (NEG); URINE SPECIFIC GRAVITY 1.015 (1.000-1.030); UROBILINOGEN NEG (NEG); ZZUR CULT IF INDIC CLEAN CATCH NO
[2016-04-27 00:33] LABS: MANUAL MICROSCOPIC REQUIRED? NO; REVIEW REQ? NO
[2016-04-27 03:49] VITALS: BP 107/56; PULSE 63; TEMP 37.2; O2SAT 93
[2016-04-27 05:16] LABS: HEMATOCRIT 28.8 % (37-47)
[2016-04-27 05:26] LABS: INR 1.4 (0.9-1.1); PROTHROMBIN TIME (PATIENT) 15.2 SECONDS (9.0-12.0)
--- NOTE | 2016-04-27 06:44 | Progress Note ---
Subjective Date of Service: Apr 27, 2016. Subjective Pt evaluation today including: conversation w/ patient, chart review, lab review Voiding: no voiding problems Pt doing well. Feeling better. Was given Lasix last night which made her void more frequently but now seems to be wearing off. Urine is clear. No hematuria. No clots. No flank pain. No nausea. No vomiting. Urine Cx showed >3 organisms. INR: 1.4 H.1 Problem List Medical Problems: (1) Acute coronary syndrome Status: Acute (2) Chest pain Status: Acute (3) Hematuria Status: Acute (4) Hypokalemia Status: Acute (5) Left flank pain Status: Acute (6) Nausea Status: Acute (7) Supratherapeutic INR Status: Acute (8) Ventricular tachycardia Status: Acute (9) Weakness Status: Acute Review of Systems Female : + urinary frequency All Other Systems: Reviewed and Negative Objective Vital Signs Date Time Temp Pulse Resp B/P Pulse Ox O2 Delivery O2 Flow Rate FiO2 04/27/16 04:00 Room Air 04/27/16 03:49 37.2 63 20 107/56 93 Room Air 04/27/16 00:00 Room Air 04/26/16 23:30 36.9 61 20 103/51 96 Nasal Cannula 1.0 04/26/16 20:00 Nasal Cannula 2.0 04/26/16 19:28 36.7 65 20 113/62 97 Nasal Cannula 2.0 04/26/16 15:53 36.7 66 20 127/67 94 Room Air 04/26/16 15:30 Nasal Cannula 2.0 04/26/16 12:00 Room Air 04/26/16 11:44 37.0 70 20 117/57 99 Nasal Cannula 2.0 04/26/16 10:18 62 18 112/65 99 2.0 04/26/16 09:32 62 18 115/77 100 2.0 04/26/16 08:30 36.9 61 18 110/52 98 2.0 04/26/16 08:20 Nasal Cannula 2.0 04/26/16 07:52 36.7 78 20 109/57 91 2.0 04/26/16 07:28 68 18 119/74 97 2.0 04/26/16 06:58 37.0 67 20 109/51 92 2.0 Physical Exam General Appearance: WD/WN Eyes: normal inspection Extremities: no pedal edema Neurologic/Psychiatric: alert Laboratory Results Last 24 Hours Test 04/26/16 12:30 04/26/16 16:08 04/26/16 18:24 04/26/16 20:18 Hemoglobin 9.6 g/dL Hematocrit 30.1 % Creatine Kinase MB Ratio Creatine Kinase MB 8.7 ng/ml Troponin I 5.580 ng/ml Urine Color YELLOW Urine Appearance CLOUDY Urine pH 5.0 Urine Specific [place] 1.015 Urine Protein NEG Urine Glucose (UA) NEG Urine Ketones NEG Urine Occult Blood 2+ Urine Nitrite NEG Urine Bilirubin NEG Urine Urobilinogen NEG Urine Leukocyte Esterase NEG Urine WBC (Auto) 1-5 /hpf Urine RBC (Auto) 0-4 /hpf Urine Hyaline Casts (Auto) 1-5 /lpf Urine Epithelial Cells (Auto) 5-10 /lpf Urine Bacteria (Auto) NEG Test 04/26/16 21:49 04/27/16 04:12 04/27/16 04:40 Hemoglobin 9.7 g/dL 9.1 g/dL Hematocrit 30.7 % 28.8 % Creatine Kinase MB 7.2 ng/ml 4.9 ng/ml Creatine Kinase MB Ratio Troponin I 5.270 ng/ml 4.860 ng/ml Prothrombin Time 15.2 SECONDS Prothromb Time International Ratio 1.4 Assessment and Plan (1) Frequency of urination (2) Hematuria Status: Acute Pt has clinically improved. INR has normalized. Urine is much clearer today which is partly due to lasix administration. No flank pain. CT scan did show some urothelial thickening, but that could be related to hematuria; however, given life long history of smoking, urothelial tumor is a possibility. As stated in prev consult note, rec f/u as outpatient to discuss options for further work-up which would include repeat CT Scan vs. Cysto, Retrograde, and Uscope.
[2016-04-27 07:53] VITALS: BP 100/52; PULSE 62; TEMP 36.6; O2SAT 93
[2016-04-27] MEDS: POTASSIUM CHLORIDE 20 MEQ TABCR PO SCH (08:55)
[2016-04-27] MEDS: PANTOprazole SOD 40 MG TAB PO SCH ×2 (08:55→20:39)
[2016-04-27] MEDS: AMIODARONE 200 MG TAB PO SCH (08:55)
[2016-04-27] MEDS: METOPROLOL SUCC 25MG EXT REL TAB PO SCH (08:56)
[2016-04-27] MEDS: NITROGLYCERIN 0.2 MG/HR PATCH TD SCH (08:56)
[2016-04-27] MEDS: URSODIOL 300 MG CAP PO SCH ×2 (09:19→20:39)
--- NOTE | 2016-04-27 09:40 | Progress Note ---
Internal Med Progress Note Date of Service: Apr 27, 2016. Provider Documentation: SUBJECTIVE: Patient is seen and examined at bedside. States chest pain and hematuria resolved. Feels tired secondary to increased urine frequency after lasix overnight. Denies SOB, palpitations, dizziness. OBJECTIVE: Vital Signs-as noted below Physical Exam: General Appearance:Fragile, chronically ill appearing, no apparent distress Head: normocephalic, Atraumatic Eyes: normal inspection, EOMI, PERRLA Neck: supple, Trachea midline Respiratory/Chest: Normal breath sounds, CTA, No accessory muscle use Cardiovascular: S1, S2, + murmur Abdomen/GI:Soft, Non tender, Bowel sounds present, No flank tenderness Extremities/Musculoskelatal:normal inspection, 1+ pedal edema bilateral Neurologic/Psych:AAOX3, grossly no focal neurological deficits Skin: normal color, warm Lab data as noted below. ASSESSMENT & PLAN: Patient is an 81 yr old female with multiple comorbidities presents with nausea for 1 day and is found to have hematuria, supra therapeutic INR-on [facility] anticoagulation for PE. GROSS HEMATURIA: Likely secondary to supra therapeutic INR-Coumadin induced, Also to rule out malignancy ACUTE BLOOD LOSS ANEMIA: Secondary to above CT scan showed Mild left-sided hydronephrosis, mild proximal uroepithelial thickening Given history of smoking- need to rule out uroepithelial tumor Appreciate Urology input Needs follow up with urology as outpatient for possible repeat CT Scan vs. Cysto , Retrograde/Uscope. No plan for intervention currently Poor surgical candidate given history of severe heart disease S/P Rocephin empirically for 3 days Will DC Abx Monitor H&H Hold Plavix, Coumadin S/P 2 units PRBC in total since admission Hb:9.1 today SUPRATHERAPEUTIC INR INR >8: on admission S/P 2 units FFP and 2 units PRBC and Vit K Currently INR:1.4 Monitor H&H, INR Transfuse PRBCs PRN to keep Hb >9.0 Hold Plavix, Coumadin for now ELEVATED TROPONIN - H/O CAD Chest pain resolved Troponin: Trended down Plavix held Continue BB, Nitro Morphine PRN ECHO: extensive, thinned and very expanded anterorseptal, anterior and anterolateral 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 Appreciate cardiology help Plan to start low dose heparin today SEVERE CHRONIC SYSTOLIC CHF EF: 20-25% H/O ICD placement Continue Lasix, BB CKD III Stable avoid nephrotoxic agents BMP pending H/O SUSTAINED VENTRICULAR TACHYCARDIA continue amiodarone continue 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, H/O APICAL THROMBUS hold Coumadin for now secondary to hematuria until Hb stable Need to resume Coumadin prior to discharge Plan to start Heparin today if Hb stable, plan to resume coumadin DVT Px: SCDs for now CODE STATUS: LEVEL 3 NO MECHANICAL VENTILATION per my discussion with the patient and her daughter Disposition: Continue to monitor in Tele Vital Signs: Date Time Temp Pulse Resp B/P Pulse Ox O2 Delivery O2 Flow Rate FiO2 04/27/16 07:53 36.6 62 18 100/52 93 Room Air 04/27/16 07:30 Room Air 04/27/16 04:00 Room Air 04/27/16 03:49 37.2 63 20 107/56 93 Room Air 04/27/16 00:00 Room Air 04/26/16 23:30 36.9 61 20 103/51 96 Nasal Cannula 1.0 04/26/16 20:00 Nasal Cannula 2.0 04/26/16 19:28 36.7 65 20 113/62 97 Nasal Cannula 2.0 04/26/16 15:53 36.7 66 20 127/67 94 Room Air 04/26/16 15:30 Nasal Cannula 2.0 04/26/16 12:00 Room Air 04/26/16 11:44 37.0 70 20 117/57 99 Nasal Cannula 2.0 04/26/16 10:18 62 18 112/65 99 2.0 Lab Results: Results Past 24 Hours Test 04/26/16 12:30 04/26/16 16:08 04/26/16 18:24 04/26/16 20:18 Range/Units Hemoglobin 9.6 12.0-16.0 g/dL Hematocrit 30.1 37-47 % Creatine Kinase MB Ratio 0-3.0 Creatine Kinase MB 8.7 0.5-3.6 ng/ml Troponin I 5.580 0-0.045 ng/ml Urine Color YELLOW Urine Appearance CLOUDY CLEAR Urine pH 5.0 4.5-7.5 Urine Specific [place] 1.015 1.000-1.030 Urine Protein NEG NEG Urine Glucose (UA) NEG NEG Urine Ketones NEG NEG Urine Occult Blood 2+ NEG Urine Nitrite NEG NEG Urine Bilirubin NEG NEG Urine Urobilinogen NEG NEG Urine Leukocyte Esterase NEG NEG Urine WBC (Auto) 1-5 0-5 /hpf Urine RBC (Auto) 0-4 0-4 /hpf Urine Hyaline Casts (Auto) 1-5 0-5 /lpf Urine Epithelial Cells (Auto) 5-10 0-5 /lpf Urine Bacteria (Auto) NEG NEG Test 04/26/16 21:49 04/27/16 04:12 04/27/16 04:40 04/27/16 09:36 Range/Units Hemoglobin 9.7 9.1 12.0-16.0 g/dL Hematocrit 30.7 28.8 37-47 % Creatine Kinase MB 7.2 4.9 0.5-3.6 ng/ml Creatine Kinase MB Ratio 0-3.0 Troponin I 5.270 4.860 0-0.045 ng/ml Prothrombin Time 15.2 9.0-12.0 SECONDS Prothromb Time International Ratio 1.4 0.9-1.1
[2016-04-27] MEDS ORDERED: HEPARIN IV LOW DOSE NO BOLUS SCH (10:00)
[2016-04-27 10:17] LABS: BUN/CREATININE RATIO 17.1 (10-20); CALCIUM 7.8 mg/dl (8.5-10.1); CREATININE 1.1 mg/dl (0.60-1.20)
[2016-04-27 11:06] LABS: INR 1.4 (0.9-1.1); PARTIAL THROMBOPLASTIN RATIO 1.2; PROTHROMBIN TIME (PATIENT) 15.3 SECONDS (9.0-12.0)
[2016-04-27 11:39] VITALS: BP 101/57; PULSE 61; TEMP 36.8; O2SAT 93
--- NOTE | 2016-04-27 11:59 | Cardiology Follow-Up ---
Subjective Subjective Date of Service: Apr 27, 2016. Pt evaluation today including: conversation w/ patient, physical exam, chart review, lab review, review of studies, review of inpatient medication list Additional Details: Pt seen and examined, had some chest congestion yesterday after transfusion along with sob. Both resolved with lasix. Called by nursing with report of EKG changes, that was incorrect. Currently states that she feels well, dog in her bed. Denies cp, sob, palpitations, lightheadedness or dizziness. Tele reviewed: sinus rhythm without arrhythmia or significant ectopy. Problem List Medical Problems: (1) Acute coronary syndrome Status: Acute (2) Chest pain Status: Acute (3) Hematuria Status: Acute (4) Hypokalemia Status: Acute (5) Left flank pain Status: Acute (6) Nausea Status: Acute (7) Supratherapeutic INR Status: Acute (8) Ventricular tachycardia Status: Acute (9) Weakness Status: Acute Review of Systems Respiratory: No cough, No dyspnea at rest, No dyspnea on exertion, No hemoptysis, No problem reported, No see HPI, No shortness of breath, No sputum, No wheezing Cardiac: No PND, No chest pain, No claudication, No edema, No orthopnea, No palpitations, No problem reported, No see HPI Female : + urinary frequency Neurologic: + problem reported Psychiatric: + problem reported Objective Vital Signs Last Vital Signs Documentation Date Time Temp Pulse Resp B/P Pulse Ox O2 Delivery O2 Flow Rate FiO2 04/27/16 11:39 36.8 61 18 101/57 93 Room Air 04/26/16 23:30 1.0 Physical Exam: General Appearance: WD/WN, no apparent distress Eyes: bilateral eyes EOMI, bilateral eyes PERRL, bilateral eyes normal inspection ENT: normal ENT inspection, hearing grossly normal, pharynx normal Neck: supple, no adenopathy, thyroid normal, no JVD, no carotid bruits, trachea midline Respiratory/Chest: chest non-tender, lungs clear, normal breath sounds, no respiratory distress, no accessory muscle use Cardiovascular: regular rate, rhythm, + pertinent finding (distant) Abdomen: normal bowel sounds, non tender, soft, no organomegaly Extremities: no pedal edema Neurologic/Psychiatric: alert Skin: normal color, warm/dry, no rash, + pertinent finding (bruising on all limbs ) Lymphatic: no adenopathy Assessment and Plan 1. anemia given hx of ischemic cardiomyopathy, ideally Hgb should be above 9 hgb now above 9 follow with addition of heparin 2. ischemic cardiomyopathy stable required extra dose of lasix after second unit of prbc now stabilized 3. 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
[2016-04-27 12:03] LABS: BASO % 0.4 %; BASO ABS # 0.03 K/uL (0-0.2); EOS % 2.3 %; HEMATOCRIT 30.5 % (37-47); IG% 0.3 %; LYMPH % 10.1 %; LYMPH ABS # 0.71 K/uL (1.2-3.4); MEAN CELL VOLUME 87.6 fL (80-100); MEAN CORPUSCULAR HEMOGLOBIN 27.3 pg (25-34); MEAN PLATELET VOLUME 10.7 fL (7.4-10.4); MONO % 11.5 %; NEUT % 75.4 %; PLATELET COUNT 215 K/uL (130-400); RED BLOOD COUNT 3.48 M/uL (4.2-5.4); WHITE BLOOD COUNT 7.02 K/uL (4.8-10.8)
[2016-04-27 12:12] LABS: COMPLETE YES; MEAN CORPUSCULAR HGB CONC 31.1 g/dl (32-36)
[2016-04-27] MEDS: HEPARIN 25,000 UNIT/500ML D5W 500 ML IV PRN (12:14)
[2016-04-27 14:27] LABS: HEMATOCRIT 30.5 % (37-47)
[2016-04-27 15:13] VITALS: BP 97/49; PULSE 66; TEMP 36.9; O2SAT 94
[2016-04-27 19:07] LABS: PARTIAL THROMBOPLASTIN RATIO 1.3
[2016-04-27 20:03] VITALS: BP 105/53; PULSE 62; TEMP 37.3; O2SAT 93
[2016-04-27] MEDS ORDERED: HEPARIN IV BOLUS 4,000 UNIT in SYRINGE 0 ML IV ONE (20:15)
[2016-04-27 22:08] LABS: HEMATOCRIT 30.4 % (37-47)
[2016-04-28] VITALS (8 sets, daily range): BP systolic 97–121; BP diastolic 46–69; PULSE 55–67; TEMP 36.4–37; O2SAT 57–96
[2016-04-28 02:54] LABS: PARTIAL THROMBOPLASTIN RATIO 2.9
[2016-04-28 06:26] LABS: HEMATOCRIT 28.6 % (37-47)
[2016-04-28 06:38] LABS: INR 1.3 (0.9-1.1); PARTIAL THROMBOPLASTIN RATIO 2.1; PROTHROMBIN TIME (PATIENT) 14.3 SECONDS (9.0-12.0)
[2016-04-28 06:56] LABS: BUN/CREATININE RATIO 21.2 (10-20); CALCIUM 8.5 mg/dl (8.5-10.1); CREATININE 0.92 mg/dl (0.60-1.20); POTASSIUM 3.3 mmol/L (3.5-5.1)
[2016-04-28] MEDS ORDERED: POTASSIUM CHLORIDE 20 MEQ TABCR PO ONE (08:30)
[2016-04-28] MEDS: AMIODARONE 200 MG TAB PO SCH (08:46)
[2016-04-28] MEDS: METOPROLOL SUCC 25MG EXT REL TAB PO SCH (08:46)
[2016-04-28] MEDS: PANTOprazole SOD 40 MG TAB PO SCH ×2 (08:46→21:57)
[2016-04-28] MEDS: FUROSEMIDE 20 MG TAB PO SCH (08:47)
[2016-04-28] MEDS: URSODIOL 300 MG CAP PO SCH ×2 (08:47→21:57)
[2016-04-28] MEDS: POTASSIUM CHLORIDE 20 MEQ TABCR PO SCH (08:48)
[2016-04-28] MEDS: NITROGLYCERIN 0.2 MG/HR PATCH TD SCH (08:49)
--- NOTE | 2016-04-28 10:19 | Progress Note ---
Internal Med Progress Note Date of Service: Apr 28, 2016. Provider Documentation: SUBJECTIVE: Patient is seen and examined at bedside. Denies hematuria, chest pain, SOB. Feels well. Offers no complaints. OBJECTIVE: Vital Signs-as noted below Physical Exam: General Appearance:Fragile, chronically ill appearing, no apparent distress Head: normocephalic, Atraumatic Eyes: normal inspection, EOMI, PERRLA Neck: supple, Trachea midline Respiratory/Chest: Normal breath sounds, CTA, No accessory muscle use Cardiovascular: S1, S2, + murmur Abdomen/GI:Soft, Non tender, Bowel sounds present, No flank tenderness Extremities/Musculoskelatal:normal inspection, 1+ pedal edema bilateral Neurologic/Psych:AAOX3, grossly no focal neurological deficits Skin: normal color, warm Lab data as noted below. ASSESSMENT & PLAN: Patient is an 81 yr old female with multiple comorbidities presents with nausea for 1 day and is found to have hematuria, supra therapeutic INR-[facility]. GROSS HEMATURIA: Likely secondary to supra therapeutic INR-Coumadin induced, Also to rule out malignancy ACUTE BLOOD LOSS ANEMIA: Secondary to above CT scan showed Mild left-sided hydronephrosis, mild proximal uroepithelial thickening Given history of smoking- need to rule out uroepithelial tumor Appreciate Urology input Needs follow up with urology as outpatient for possible repeat CT Scan vs. Cysto , Retrograde/Uscope. No plan for intervention currently Poor surgical candidate given history of severe heart disease S/P Rocephin empirically for 3 days Monitor H&H S/P 2 units PRBC in total since admission Hb:9.1 today: Stable while on IV Heparin Plan to resume Coumadin today. 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 Appreciate cardiology help Continue IV heparin Plan to resume Coumadin today: needs bridging to target INR:2-3 Lovenox not an option secondary to Insurance issues Transfuse PRBCs PRN to keep Hb >9.0 SUPRATHERAPEUTIC INR Resolved INR >8: on admission S/P 2 units FFP and 2 units PRBC and Vit K Currently INR:1.3 Monitor INR SEVERE CHRONIC SYSTOLIC CHF EF: 20-25% H/O ICD placement Continue Lasix, BB CKD III Stable avoid nephrotoxic agents H/O SUSTAINED VENTRICULAR TACHYCARDIA continue amiodarone continue 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, H/O APICAL THROMBUS hold Coumadin for now secondary to hematuria until Hb stable Need to resume Coumadin prior to discharge Resume Coumadin today DVT Px: SCDs for now CODE STATUS: LEVEL 3 NO MECHANICAL VENTILATION per my discussion with the patient and her daughter Disposition: Continue to monitor in Tele Needs follow up with PCP Urology Coumadin clinic Vital Signs: Date Time Temp Pulse Resp B/P Pulse Ox O2 Delivery O2 Flow Rate FiO2 04/28/16 12:00 Room Air 04/28/16 12:00 36.6 62 18 117/56 96 Room Air 04/28/16 08:00 Room Air 04/28/16 08:00 37.0 55 18 97/46 94 Room Air 04/28/16 04:20 37.0 67 18 116/59 94 Room Air 04/28/16 04:00 Room Air 04/28/16 00:00 36.8 59 20 121/60 96 Room Air 04/28/16 00:00 Room Air 04/27/16 20:03 37.3 62 20 105/53 93 Room Air 04/27/16 20:00 Room Air 04/27/16 16:00 Room Air 04/27/16 15:13 36.9 66 20 97/49 94 Room Air Lab Results: Results Past 24 Hours Test 04/27/16 14:21 04/27/16 18:47 04/27/16 21:57 04/28/16 01:57 Range/Units Hemoglobin 9.6 9.7 12.0-16.0 g/dL Hematocrit 30.5 30.4 37-47 % Activated Partial Thromboplast Time 34.5 74.9 21.0-31.0 SECONDS Partial Thromboplastin Ratio 1.3 2.9 Test 04/28/16 06:00 Range/Units Hemoglobin 9.1 12.0-16.0 g/dL Hematocrit 28.6 37-47 % Prothrombin Time 14.3 9.0-12.0 SECONDS Prothromb Time International Ratio 1.3 0.9-1.1 Activated Partial Thromboplast Time 53.3 21.0-31.0 SECONDS Partial Thromboplastin Ratio 2.1 Sodium Level 143 136-145 mmol/L Potassium Level 3.3 3.5-5.1 mmol/L Chloride Level 103 98-107 mmol/L Carbon Dioxide Level 34 21-32 mmol/L Anion Gap 6.0 3-11 mmol/L Blood Urea Nitrogen 20 7-18 mg/dl Creatinine 0.92 0.60-1.20 mg/dl Est Creatinine Clear Calc Drug Dose 44.7 ml/min Estimated GFR () 68.2 Estimated GFR (Non- 58.8 BUN/Creatinine Ratio 21.2 10-20 Random Glucose 85 70-99 mg/dl Calcium Level 8.5 8.5-10.1 mg/dl
--- NOTE | 2016-04-28 12:09 | Cardiology Follow-Up ---
Subjective Subjective Date of Service: Apr 28, 2016. Pt evaluation today including: conversation w/ patient, physical exam, chart review, lab review, review of studies, review of inpatient medication list Additional Details: Pt seen and examined, states that she feels fine. Denies cp, sob, palpitations, lightheadedness or dizziness. No further bleeding with heparin gtt. Tele reviewed: sinus rhythm without arrhythmia or significant ectopy. Problem List Medical Problems: (1) Acute coronary syndrome Status: Acute (2) Chest pain Status: Acute (3) Hematuria Status: Acute (4) Hypokalemia Status: Acute (5) Left flank pain Status: Acute (6) Nausea Status: Acute (7) Supratherapeutic INR Status: Acute (8) Ventricular tachycardia Status: Acute (9) Weakness Status: Acute Review of Systems Respiratory: No cough, No dyspnea at rest, No dyspnea on exertion, No hemoptysis, No problem reported, No see HPI, No shortness of breath, No sputum, No wheezing Cardiac: No PND, No chest pain, No claudication, No edema, No orthopnea, No palpitations, No problem reported, No see HPI Female : + urinary frequency Neurologic: + problem reported Psychiatric: + problem reported Objective Vital Signs Last Vital Signs Documentation Date Time Temp Pulse Resp B/P Pulse Ox O2 Delivery O2 Flow Rate FiO2 04/28/16 08:00 Room Air 04/28/16 08:00 37.0 55 18 97/46 94 04/26/16 23:30 1.0 Physical Exam: General Appearance: WD/WN, no apparent distress Eyes: bilateral eyes EOMI, bilateral eyes PERRL, bilateral eyes normal inspection ENT: normal ENT inspection, hearing grossly normal, pharynx normal Neck: supple, no adenopathy, thyroid normal, no JVD, no carotid bruits, trachea midline Respiratory/Chest: chest non-tender, lungs clear, normal breath sounds, no respiratory distress, no accessory muscle use Cardiovascular: regular rate, rhythm, + pertinent finding (distant) Abdomen: normal bowel sounds, non tender, soft, no organomegaly Extremities: no pedal edema Neurologic/Psychiatric: alert Skin: normal color, warm/dry, no rash, + pertinent finding (bruising on all limbs ) Lymphatic: no adenopathy Assessment and Plan 1. anemia given hx of ischemic cardiomyopathy, ideally Hgb should be above 9 stable even with heparin initiation 2. ischemic cardiomyopathy stable 3. 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
[2016-04-28] MEDS ORDERED: WARFARIN SOD 5 MG TAB PO ONE (12:15)
[2016-04-28] MEDS: WARFARIN SOD 5 MG TAB PO SCH (17:56)
[2016-04-28 18:21] LABS: HEMATOCRIT 31.3 % (37-47)
[2016-04-29] MEDS: HEPARIN 25,000 UNIT/500ML D5W 500 ML IV PRN (00:19)
[2016-04-29 06:36] LABS: HEMATOCRIT 31.2 % (37-47)
[2016-04-29 06:49] LABS: INR 1.3 (0.9-1.1); PARTIAL THROMBOPLASTIN RATIO 1.7
[2016-04-29 08:22] VITALS: BP 106/68; PULSE 63; TEMP 36.7; O2SAT 99
[2016-04-29] MEDS: PANTOprazole SOD 40 MG TAB PO SCH ×2 (09:30→20:24)
[2016-04-29] MEDS: METOPROLOL SUCC 25MG EXT REL TAB PO SCH (09:30)
[2016-04-29] MEDS: POTASSIUM CHLORIDE 20 MEQ TABCR PO SCH (09:32)
[2016-04-29] MEDS: AMIODARONE 200 MG TAB PO SCH (09:32)
[2016-04-29] MEDS: URSODIOL 300 MG CAP PO SCH ×2 (09:33→20:23)
[2016-04-29] MEDS: NITROGLYCERIN 0.2 MG/HR PATCH TD SCH (09:40)
[2016-04-29] MEDS ORDERED: HEPARIN IV BOLUS 2,000 UNIT in SYRINGE 0 ML IV SCH (12:00)
[2016-04-29] MEDS: WARFARIN SOD 5 MG TAB PO SCH (15:36)
[2016-04-29 16:11] VITALS: BP 99/60; PULSE 60; TEMP 36.4; O2SAT 97
--- NOTE | 2016-04-29 18:19 | Progress Note ---
Medicine Progress Note Date & Time of Visit: Apr 29, 2016 at 18:06. Subjective Patient seen and examined. Denies any specific complaints. Would like to go home. Agreeable to having someone administer Lovenox injections. Objective Last 8 Hrs Date Time Temp Pulse Resp B/P Pulse Ox O2 Delivery O2 Flow Rate FiO2 04/29/16 16:11 36.4 60 20 99/60 97 Room Air 04/29/16 16:00 Room Air Physical Exam: General-awake; alert; NAD Eyes-EOMI; no scleral icterus Neck-no stridor; trachea midline Lungs-CTA bilaterally; no wheezes/crackles Heart-RRR; +murmur Abdomen-soft; NTND; nBS Extremities-no c/c/e; no deformity Neuro-no gross focal deficits Laboratory Results: Last 24 Hours Test 04/28/16 18:14 04/29/16 06:05 04/29/16 17:52 Hemoglobin 9.9 g/dL 9.8 g/dL Hematocrit 31.3 % 31.2 % Prothrombin Time 14.0 SECONDS Prothromb Time International Ratio 1.3 Activated Partial Thromboplast Time 43.1 SECONDS Partial Thromboplastin Ratio 1.7 Assessment & Plan GROSS HEMATURIA: Likely secondary to supra therapeutic INR on admission CT scan showed Mild left-sided hydronephrosis, mild proximal uroepithelial thickening Urology consulted Plan for outpatient follow up Resolved ACUTE BLOOD LOSS ANEMIA: Likely 2/2 gross hematuria Transfused 2 units PRBC Hemoglobin stable ELEVATED TROPONIN - H/O CAD and LV Apical Thrombus Cardiology consulted Troponin downtrended Plavix held for now Continue Metoprolol ECHO: extensive, thinned and very expanded anterorseptal, anterior and anterolateral 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 Transfuse PRBCs PRN to keep Hb >9.0 SUPRA-THERAPEUTIC INR Resolved INR >8: on admission S/P 2 units FFP and 2 units PRBC and Vit K SEVERE CHRONIC SYSTOLIC CHF EF: 20-25% H/O ICD placement Continue Lasix, metoprolol CKD III Stable Avoid nephrotoxic agents H/O SUSTAINED VENTRICULAR TACHYCARDIA Continue amiodarone Continue metoprolol POLYMYALGIA RHEUMATICA Continue prednisone H/O BILATERAL PE, H/O APICAL THROMBUS Coumadin initially held due to hematuria, anemia and supra-therapeutic INR Coumadin restarted; currently with heparin bridge -- plan to discharge on daily Lovenox with home health to administer DVT Px: Heparin bridge to Coumadin Anticipate discharge tomorrow Discharge planning: home with home health Consultants: Cardiology Urology Procedures: CT a/p 1. No evidence of bowel obstruction. No evidence of free air 2. Normal appendix. No evidence of acute diverticulitis. 3. Cholelithiasis 4. Complex 13 mm lower pole left renal cystic mass containing coarse calcifications 5. Mild left-sided hydronephrosis, mild proximal uroepithelial thickening, subtle diminished left-sided nephrogram, and subtle increased density of the left proximal ureter. No discrete calculus is visualized. Diagnostic considerations include ureteral hemorrhage, ureteral neoplasm, radiolucent or recently passed calculus, as well as renal infection. Urological consultation is recommended. TTE * The left ventricle is mildly dilated. * There is moderate concentric left ventricular hypertrophy. 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 Basilar segments contract normally * Left ventricular systolic function is severely reduced. * Ejection Fraction = 20-25%. Current Inpatient Medications: Current Inpatient Medications Medications (Trade) Dose Ordered Sig/Olman Route Start Time Stop Time Status Last Admin Dose Admin Acetaminophen (Tylenol Tab) 650 mg Q4H PRN PO 04/23/16 17:30 05/23/16 17:29 04/25/16 01:16 650 MG Ondansetron HCl (Zofran Inj) 4 mg Q6H PRN IV 04/23/16 17:30 05/23/16 17:29 04/23/16 19:18 4 MG Metoprolol Succinate (Toprol Xl Tab) 25 mg QAM PO 04/24/16 09:00 05/24/16 08:59 04/29/16 09:30 25 MG Nitroglycerin (Nitro-Dur 0.2 Mg/Hr Patch) 1 patch DAILY TD 04/24/16 09:00 05/24/16 08:59 04/29/16 09:40 1 PATCH Pantoprazole Sodium (Protonix Tab) 40 mg BID PO 04/23/16 21:00 05/23/16 20:59 04/29/16 09:30 40 MG Prednisone (PredniSONE TAB) 7.5 mg DAILY PO 04/24/16 09:00 05/24/16 08:59 04/29/16 09:34 7.5 MG Tramadol HCl (Ultram Tab) 50 mg Q6H PRN PO 04/23/16 17:45 05/23/16 17:44 04/26/16 16:13 50 MG Ursodiol (Actigall Cap) 300 mg BID PO 04/23/16 21:00 05/23/16 20:59 04/29/16 09:33 300 MG Miscellaneous (Remove Nitro-Dur Patch) 1 ea DAILY@21 N/A 04/23/16 21:00 05/23/16 20:59 04/28/16 21:00 1 EA Diphenhydramine HCl (Benadryl Syrup) 12.5 mg Q6H PRN PO 04/24/16 01:00 05/24/16 00:59 04/29/16 09:35 12.5 MG Amiodarone HCl (Cordarone Tab) 100 mg DAILY PO 04/26/16 09:00 05/26/16 08:59 04/29/16 09:32 100 MG Furosemide (Lasix Tab) 10 mg MoWeFr@0900 PO 04/25/16 11:00 05/25/16 10:59 04/28/16 08:47 10 MG Potassium Chloride (Klor-Con Tab) 20 meq QAM PO 04/26/16 09:00 05/26/16 08:59 04/29/16 09:32 20 MEQ Morphine Sulfate 2 mg 2 mg Q6H PRN IV 04/26/16 20:30 05/10/16 20:29 Heparin Sodium/ Dextrose (Heparin 25,000 Unit/500ml D5W) 500 ml @ 16 mls/hr Q24H PRN IV 04/27/16 11:45 05/27/16 11:44 04/29/16 00:19 15 MLS/HR Warfarin Sodium (Coumadin Tab) 5 mg DAILY@16 PO 04/28/16 16:00 05/28/16 15:59 04/29/16 15:36 5 MG
[2016-04-29 18:33] LABS: PARTIAL THROMBOPLASTIN RATIO 2.3
[2016-04-29 23:54] VITALS: BP 118/71; PULSE 62; TEMP 36.5; O2SAT 99
[2016-04-30 07:45] VITALS: BP 140/62; PULSE 57; TEMP 36.5; O2SAT 92
[2016-04-30 08:15] LABS: HEMATOCRIT 32.4 % (37-47)
[2016-04-30 08:23] LABS: INR 1.8 (0.9-1.1); PARTIAL THROMBOPLASTIN RATIO 2.2; PROTHROMBIN TIME (PATIENT) 19.4 SECONDS (9.0-12.0)
[2016-04-30] MEDS: HEPARIN 25,000 UNIT/500ML D5W 500 ML IV PRN ×2 (08:40→09:04)
[2016-04-30 08:41] VITALS: PULSE 70
[2016-04-30] MEDS: AMIODARONE 200 MG TAB PO SCH (08:42)
[2016-04-30] MEDS: FUROSEMIDE 20 MG TAB PO SCH (08:43)
[2016-04-30] MEDS: URSODIOL 300 MG CAP PO SCH (08:43)
[2016-04-30] MEDS: PANTOprazole SOD 40 MG TAB PO SCH (08:43)
[2016-04-30] MEDS: METOPROLOL SUCC 25MG EXT REL TAB PO SCH (08:44)
[2016-04-30] MEDS: NITROGLYCERIN 0.2 MG/HR PATCH TD SCH (08:48)
[2016-04-30 08:49] LABS: BUN/CREATININE RATIO 18.9 (10-20); CREATININE 1.1 mg/dl (0.60-1.20)
[2016-04-30] MEDS: POTASSIUM CHLORIDE 20 MEQ TABCR PO SCH (08:49)
[2016-04-30 10:18] VITALS: O2SAT 92
[2016-04-30] MEDS ORDERED: ENOXAPARIN 1.5 MG/KG SQ SCH (10:45)
[2016-04-30] MEDS ORDERED: ENOX100I SQ (10:48)
--- NOTE | 2016-04-30 10:59 | Discharge Instructions ---
Discharge Instructions Admission Reason for Admission: Elevated Troponin, Hydronephrosis, Nausea Discharge Discharge Diagnosis / Problem: Elevated INR. Resolved hematuria. Atrial thrombus. Discharge Goals Goal(s): Improve disease control Activity Recommendations Activity Limitations: resume your previous activity . Instructions / Follow-Up Instructions / Follow-Up Home health will start coming to your house on 05/01/16 around 11:00am to give you the Lovenox injection. You will need to have your INR checked on Thursday. The anticoagulation clinic will be in touch then with your home health agency for further directions. Please take 1.25mg of warfarin on Thursday, Thursday, and Thursday. Please take 2.5mg of warfarin on Thursday, Thursday, and Thursday. Please follow up with Family Medicine Dr. Leslie on May 05 at 11:10am. Please follow up with Urology Dr. Spangler on May 19 at 11:00am. Current Hospital Diet Patient's current hospital diet: AHA Diet (Heart Healthy), Low Sodium Diet (2gm Na) Discharge Diet Recommended Diet: AHA Diet (Heart Healthy) Pending Studies Studies pending at discharge: no Medical Emergencies . Who to Call and When: Medical Emergencies: If at any time you feel your situation is an emergency, please call 911 immediately. . Non-Emergent Contact Non-Emergency issues call your: Primary Care Provider . . "Provider Documentation" section prepared by Madison Cortez. VTE Core Measure Inpt VTE Proph given/why not?: Enoxaparin (Lovenox)SQ, Warfarin (Coumadin)
[2016-04-30] MEDS ORDERED: ENOXAPARIN 100 MG/1ML SYR SQ SCH (11:45)
[2016-04-30] MEDS ORDERED: CMD5 PO (13:04)
[2016-04-30] MEDS ORDERED: CMD/25 PO (13:55)
[2016-04-30 14:11] VITALS: BP 140/62; PULSE 70; TEMP 36.5; O2SAT 92
--- NOTE | 2016-04-30 19:52 | Discharge Summary ---
Discharge Summary Admission Date: Apr 23, 2016 at 17:25 Discharge Date: Apr 30, 2016 Discharge Disposition: Home with services Principal Diagnosis: Hematuria Procedures: CT a/p 1. No evidence of bowel obstruction. No evidence of free air 2. Normal appendix. No evidence of acute diverticulitis. 3. Cholelithiasis 4. Complex 13 mm lower pole left renal cystic mass containing coarse calcifications 5. Mild left-sided hydronephrosis, mild proximal uroepithelial thickening, subtle diminished left-sided nephrogram, and subtle increased density of the left proximal ureter. No discrete calculus is visualized. Diagnostic considerations include ureteral hemorrhage, ureteral neoplasm, radiolucent or recently passed calculus, as well as renal infection. Urological consultation is recommended. TTE * The left ventricle is mildly dilated. * There is moderate concentric left ventricular hypertrophy. 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 Basilar segments contract normally * Left ventricular systolic function is severely reduced. * Ejection Fraction = 20-25%. Consultations: Cardiology Urology Medication Reconciliation New Medications: Enoxaparin (Lovenox) 100 Mg/Ml Inj 100 MG SQ DAILY for 5 Days, #5 EA Warfarin Sod (Coumadin) 2.5 Mg Tab 2.5 MG PO UD for 30 Days, TAB Take 1.25mg on Thursday, Thursday, Thursday. Take 2.5mg on Thursday, Thursday, , Thursday. Continued Medications: Amiodarone Hcl (Cordarone) 200 Mg Tab 200 MG PO DAILY, TAB Clopidogrel Bisulfate (Plavix) 75 Mg Tab 75 MG PO DAILY Furosemide (Lasix) 40 Mg Tab 10 MG PO UD, TAB Metoprolol Succinate (Toprol Xl) 25 Mg Tab 25 MG PO QAM Nitroglycerin (Nitrostat) 0.4 Mg Sub 0.4 MG UT UD PRN for Chest Pain PLACE ONE TABLET UNDER THE TONGUE EVERY 5 TO 10 MINUTES FOR UP TO 3 DOSES IF NEEDED FOR CHEST PAIN. Nitroglycerin (Nitro-Dur 0.2 Mg/Hr) Patch 1 PATCH TD ONAMOFFPM APPLY ONE PATCH FOR 12 TO 14 HOURS DAILY. Ondansetron Hcl (Zofran) 4 Mg Tab 8 MG PO Q8 PRN for Nausea, TAB Pantoprazole (Protonix) 40 Mg Tab 1 TAB PO BID for 30 Days, #60 TAB 3 Refills Potassium Chloride (Micro-K Ext Rel) 10 Meq Capcr 20 MEQ PO DAILY, CAP Prednisone (Prednisone) 5 Mg Tab 7.5 MG PO DAILY 1 & 1/2 tablet dose Tramadol (Ultram) 50 Mg Tab 50 MG PO Q6H PRN for Pain, TAB Ursodiol (Ursodiol) 300 Mg Cap 300 MG PO BID Discontinued Medications: Warfarin Sod (Jantoven) 5 Mg Tab 2.5 MG PO 3XWK, TAB Warfarin Sod (Coumadin) 5 Mg Tab 5 MG PO DAILY for 30 Days Admission Information HPI (per Admitting provider): Patient seen and examined. 81 year old female with PMHx of CAD, severe systolic CHF s/p ICD, H/O apical mural thrombus,H/O bilateral PEs on Coumadin, h/o CKD stage 3, H/O sustained VT, polymyalgia rheumatica on prednisone, and other problems listed below presents to the ED complaining of nausea x 1 day. Patient reports she has had nausea for about a day. She states she went out to dinner last night for her 81th birthday but did not eat anything out of the ordinary. She states no one at the alliance party is sick. She reports she thinks if she would vomit she would feel better but she has not vomited. She denies any associated abdominal pain. She denies fevers, chills, URI symptoms, chest pain, SOB, abdominal pain, vomiting, diarrhea, dysuria, calf pain and edema. She reports she has been having epistaxis lately but that the bleeding easily stops. She denies any other unusual bleeding. In the ED VS are stable, Hgb is stable, INR is >8, CT scan shows abnormal changes to her left proximal ureteral area. UA is pending but sample shows gross hematuria. She received IVF hydration, antiemetics and vitamin K. She is resting comfortably. She will be admitted for further workup and treatment. Physical Exam (per Admitting): General Appearance: + pertinent finding (Chroncially ill appearing 81 year old female lying in bed in NAD with daughter at bedside ) Head: normocephalic, atraumatic Eyes: PERRL, EOMI, sclerae normal ENT: hearing grossly normal, + pertinent finding (lips, pharynx/mucosa dry, cracked ) Neck: supple, no JVD, trachea midline Respiratory/Chest: chest non-tender, lungs clear, normal breath sounds, no respiratory distress, no accessory muscle use Cardiovascular: regular rate, rhythm, no gallop, no JVD, normal peripheral pulses, + systolic murmur Abdomen/GI: normal bowel sounds, non tender, soft Back: normal inspection, no CVA tenderness, no muscle spasm Extremities/Musculoskelatal: no calf tenderness, normal capillary refill, + pedal edema (trace) Neurologic/Psych: alert, oriented x 3, + pertinent finding (no motor or sensory deficits noted on gross exam ) Skin: normal color, warm/dry, no rash Lymphatic: no adenopathy Hospital Course Patient was admitted with gross hematuria, likely 2/2 supra-therapeutic INR on admission. CT a/p showed mild left hydronephrosis and mild proximal uroepithelial thickening. Urology was consulted and will follow up as outpatient. Hematuria resolved. As a result of the hematuria, patient had acute blood loss anemia and required transfusion with 2units PRBC's with appropriate response of hemoglobin and 2units FFP and vitamin K. Hgb remained stable. Patient was noted to have an elevated troponin. Cardiology was consulted. Troponin downtrended. TTE showed extensive, thinned and very expanded anterorseptal, anterior and anterolateral 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. Upon resolution of the hematuria and stabilization of the Hgb, patient was restarted on Coumadin. Patient was initially bridged with heparin drip and was transitioned to outpatient Lovenox with home health arranged to administer. Patient was continued on the remainder of her home medications with the exceptions noted above. Patient deemed stable for discharge with home health and follow up with Family Medicine and anticoagulation clinic. PE on discharge: General- awake; alert; NAD Eyes- EOMI; no scleral icterus Neck- no stridor; trachea midline Lungs- CTA bilaterally; no wheezes/crackles Heart- RRR; +murmur Abdomen- soft; NTND; nBS Back- no gross abnormalities Extremities- no c/c/e; no deformity Neuro- no gross focal deficits Skin- no appreciable rash; +bruises . Total time spent on discharge = This includes examination of the patient, discharge planning, medication reconciliation, and communication with other providers. Discharge Instructions Discharge Instructions Admission Reason for Admission: Elevated Troponin, Hydronephrosis, Nausea Discharge Discharge Diagnosis / Problem: Elevated INR. Resolved hematuria. Atrial thrombus. Discharge Goals Goal(s): Improve disease control Activity Recommendations Activity Limitations: resume your previous activity . Instructions / Follow-Up Instructions / Follow-Up Home health will start coming to your house on 05/01/16 around 11:00am to give you the Lovenox injection. You will need to have your INR checked on Thursday. The anticoagulation clinic will be in touch then with your home health agency for further directions. Please take 1.25mg of warfarin on Thursday, Thursday, and Thursday. Please take 2.5mg of warfarin on Thursday, Thursday, and Thursday. Please follow up with Family Medicine Dr. Leslie on May 05 at 11:10am. Please follow up with Urology Dr. Spangler on May 19 at 11:00am. Current Hospital Diet Patient's current hospital diet: AHA Diet (Heart Healthy), Low Sodium Diet (2gm Na) Discharge Diet Recommended Diet: AHA Diet (Heart Healthy) Pending Studies Studies pending at discharge: no Medical Emergencies . Who to Call and When: Medical Emergencies: If at any time you feel your situation is an emergency, please call 911 immediately. . Non-Emergent Contact Non-Emergency issues call your: Primary Care Provider . . "Provider Documentation" section prepared by Madison Cortez. VTE Core Measure Inpt VTE Proph given/why not?: Enoxaparin (Lovenox)SQ, Warfarin (Coumadin) Additional Copies To Patria Leslie M.D.
== END 2016-04-30 15:02 | disposition home health service (06) | DRG 813 ==
LOC: ENRESERVTM → ENRESERVDT → EDBD 14:13 → C.EDA 14:18 → C.2T 17:25 → C.2E 17:25 → EDBEDREQ 04-28 12:51 → C.MS2W 04-28 15:31
PROVIDERS: ADMIT Internal Medicine; ATTEND Internal Medicine
DX: D68.32 Hemorrhagic disorder due to extrinsic circulating anticoagulants (principal); I50.20 Unspecified systolic (congestive) heart failure; D62 Acute posthemorrhagic anemia; N13.30 Unspecified hydronephrosis; I13.0 Hypertensive heart and chronic kidney disease with heart failure and stage 1 through stage 4 chronic kidney disease, or unspecified chronic kidney disease; R31.0 Gross hematuria; K80.20 Calculus of gallbladder without cholecystitis without obstruction; N28.89 Other specified disorders of kidney and ureter; N18.3 Chronic kidney disease, stage 3 (moderate); Z86.711 Personal history of pulmonary embolism; I25.10 Atherosclerotic heart disease of native coronary artery without angina pectoris; I25.5 Ischemic cardiomyopathy; Z79.52 Long term (current) use of systemic steroids; Z95.810 Presence of automatic (implantable) cardiac defibrillator; M35.3 Polymyalgia rheumatica; I73.9 Peripheral vascular disease, unspecified; Z87.891 Personal history of nicotine dependence; Z79.01 Long term (current) use of anticoagulants; I25.2 Old myocardial infarction; E78.00 Pure hypercholesterolemia, unspecified

== ENCOUNTER 2016-11-25 09:44 | Emergency (ER) | payer OTHER ==
[~2016-11-25] VITALS: Ht 160 cm; Wt 73.0 kg
[~2016-11-25 09:44] MED LIST changes: +ACT300 PO; -ALEN70TA4 PO; -CMD25 PO; +ENOX100I SQ; -ESCI10TA17 PO; -FERRTAB18 PO; -FLUO0.0543 TOP; +FURO40TA3 PO; -HYDR-5688 PO; -KETO2CRE14 TOP; -NYSS/ PO; +PANT1TAB48 PO; -PANT40TA PO; -ROSU40TA PO
[2016-11-25 09:46] VITALS: TEMP 36.9; Ht 160 cm; Wt 73.0 kg
[2016-11-25] MEDS ORDERED: CLOP1TAB15 PO (10:41)
[2016-11-25] MEDS ORDERED: NTRTP2 TD (10:41)
[2016-11-25] MEDS ORDERED: NTRGSL/4 UT (10:41)
[2016-11-25] MEDS ORDERED: PANT40TA PO (10:41)
[2016-11-25] MEDS ORDERED: WARF2.5T8 PO ×2 (10:41)
[2016-11-25] MEDS ORDERED: POTA10CA28 PO (10:41)
[2016-11-25] MEDS ORDERED: PRED-301 PO (10:41)
[2016-11-25] MEDS ORDERED: METO25TA3 PO (10:41)
[2016-11-25] MEDS ORDERED: AMIO0.1T PO (10:41)
[2016-11-25 12:15] LABS: ISTAT CREATININE 0.9 mg/dl (0.6-1.3); ISTAT HEMOGLOBIN 9.9 g/dl (12.0-16.0); ISTAT IONIZED CALCIUM 1.14 mmol/l (1.12-1.32)
--- NOTE | 2016-11-25 13:21 | EMERGENCY ROOM VISIT NOTE ---
History Report prepared by Darin: Bailee Leiva Under the Supervision of: Dr. Finn Call D.O. First contact with patient: 09:52 Stated Complaint: LACERATION TO ANKLE/PALE/DIAPHORETIC/HYPOTENSION History of Present Illness The patient is an 81 year old female who presents to the Emergency Room with complaints of persistent bleeding from a laceration to her left ankle. The patient states that she opened her refrigerator door and something fell out and landed on her left foot. She states that she is on Coumadin. The patient states that she often bleeds easily. Nursing staff reports that the patient complained of dizziness. The patient denies any ankle pain. She denies any fall or head trauma. Source of History: patient, nursing staff Onset: prior to arrival Position: ankle (left) Quality: other (bleeding from laceration) Timing: other (persistent) Note: Associated Symptoms: dizziness Review of Systems See HPI for pertinent positives & negatives. A total of 10 systems reviewed and were otherwise negative. Past Medical & Surgical Medical Problems: (1) Anticoagulation goal of INR 2 to 3 (2) Atrial thrombus (3) CAD (coronary artery disease) (4) Cardiomyopathy (5) CHF (congestive heart failure) (6) CKD (chronic kidney disease), stage III (7) Elevated troponin (8) Frequency of urination (9) HLD (hyperlipidemia) (10) Hydronephrosis (11) ICD (implantable cardioverter-defibrillator) battery depletion (12) On prednisone therapy (13) PMR (polymyalgia rheumatica) (14) Pulmonary embolism, bilateral (15) PVD (peripheral vascular disease) (16) Ventricular tachycardia Surgical Problems: (1) History of back surgery Family History Heart disease Social History Smoking Status: Former Smoker Alcohol Use: none Drug Use: none Marital Status: single, Housing Status: lives alone Occupation Status: retired Current/Historical Medications Scheduled Amiodarone Hcl (Amiodarone Hcl), 100 MG PO DAILY Clopidogrel (Plavix), 75 MG PO DAILY Metoprolol Succinate (Toprol Xl), 25 MG PO DAILY Nitroglycerin (Nitroglycerin Transdermal), 1 PATCH TD ONAMOFFPM Pantoprazole (Protonix), 40 MG PO BID Potassium Chloride (Micro-K Ext Rel), 20 MEQ PO DAILY Prednisone (Prednisone), 2.5 MG PO DAILY Warfarin Sod (Jantoven), 1.25 MG PO MWF Warfarin Sod (Jantoven), 2.5 MG PO 4XWK Scheduled PRN Nitroglycerin (Nitrostat), 0.4 MG UT PRN PRN for Chest Pain Allergies Coded Allergies: Azithromycin (Verified Allergy, Severe, ANAPHYLAXIS, 10/30/15) NSAIDs (Verified Allergy, Severe, HIVES, 10/30/15) Aspirin (Verified Allergy, Unknown, hives, 10/30/15) Erythromycin (Verified Allergy, Unknown, ., 10/30/15) Gabapentin (Verified Allergy, Unknown, myoclonus, 10/30/15) Physical Exam Vital Signs Date Time Temp Pulse Resp B/P (MAP) Pulse Ox O2 Delivery O2 Flow Rate FiO2 11/25/16 14:00 61 17 112/76 98 11/25/16 13:30 58 12 91/56 97 Room Air 11/25/16 11:35 53 17 99/54 99 Room Air 11/25/16 09:46 36.9 55 16 106/56 99 Room Air Physical Exam CONSTITUTIONAL/VITAL SIGNS: Reviewed / noted above. GENERAL: Non-toxic in appearance. INTEGUMENTARY: Warm, dry, and [place]. HEAD: Normocephalic. EYES: without scleral icterus or trauma. ENT/OROPHARYNX: clear and moist. LYMPHADENOPATHY/NECK: Is supple without lymphadenopathy or meningismus. RESPIRATORY: Lungs clear and equal. CARDIOVASCULAR: Regular rate and rhythm. GI/ABDOMEN: Soft and nontender. No organomegaly or pulsatile mass. No rebound or guarding. Normal bowel sounds. EXTREMITIES: 3 cm skin tear to the anterior left lower leg 1 cm skin to the left forearm and 1 cm skin tear to the right fifth finger on the dorsal aspect BACK: No CVA tenderness. NEUROLOGICAL: Intact without focal deficits. PSYCHIATRIC: normal affect. MUSCULOSKELETAL: Normally developed with good muscle tone. Medical Decision & Procedures Laboratory Results Test 11/25/16 11:20 11/25/16 11:57 Bedside Prothrombin Time INR 2.7 (0.9-1.1) Bedside Hemoglobin 9.9 g/dl (12.0-16.0) Bedside Hematocrit 29 % (37-47) Bedside Sodium 142 mEq/L (135-144) Bedside Potassium 4.4 mEq/L (3.3-5.0) Bedside Chloride 107 mEq/L (101-112) Bedside Total CO2 27 mEq/l (24-31) Anion Gap 14.0 mmol/L (16-25) Bedside Blood Urea Nitrogen 27 mg/dl (7-18) Bedside Creatinine 0.9 mg/dl (0.6-1.3) Bedside Glucose (other) 99 mg/dl (70-99) Bedside Ionized Calcium (Brandon) 1.14 mmol/l (1.12-1.32) Laboratory results as stated above per my review. ED Course 0952: Previous medical records were reviewed. The patient was evaluated in room C3. A complete history and physical examination was performed. 1209: I reevaluated the patient and she is resting comfortably. I discussed the exam findings with her and I discussed the treatment plan. She verbalized complete understanding and agreement. She is ready to go home shortly. Medical Decision Differentials include: Close head injury, intracranial bleed, facial trauma, cervical spine trauma, chest and thoracic trauma, abdominal and intra-abdominal trauma, spine neurologic trauma, and extremity trauma. This is a 81-year-old female who presents to the ED with a chief complaint of injury to her left leg. The patient states that she was getting some refrigerated chocolate out of the refrigerator to make something with it when it slipped and fell striking her left leg. She is on Coumadin chronically. She developed bleeding and could not control it. She was brought in by EMS. The patient had a tight bandage applied to the left leg. When this was removed , the area was not bleeding. There is a skin tear as noted above the left lower anterior de jesus. This appears to been bleeding. Dermabond and Steri- Strips were used to approximate this and bleeding was controlled just with this. The patient also had a couple other skin tears on the upper extremities. These were also Dermabond. The patient's INR is 2.7. Her hemoglobin is 9.9. PRP was normal. The patient was felt to be stable for discharge and outpatient follow-up. Medication Reconcilliation Current Medication List: was personally reviewed by me Impression Primary Impression: Skin tear Additional Impression: Elevated INR Scribe Attestation The scribe's documentation has been prepared under my direction and personally reviewed by me in its entirety. I confirm that the note above accurately reflects all work, treatment, procedures, and medical decision making performed by me. Departure Information Dispostion Home / Self-Care Referrals Patria Leslie M.D. (PCP) Forms HOME CARE DOCUMENTATION FORM, IMPORTANT VISIT INFORMATION, WORK / SCHOOL INSTRUCTIONS Patient Instructions My [facility] Additional Instructions Your INR is 2.7. This is therapeutic. Continue your current Coumadin dosing. Watch your wounds for infection. Should you develop increasing redness, discharge, pain or swelling, see her doctor or return for reevaluation. Problem Qualifiers
[2016-11-25 14:00] VITALS: BP 112/76; PULSE 61; O2SAT 98
== END 2016-11-25 13:55 | disposition home or self-care (01) ==
LOC: EDBD 09:44 → C.EDC 09:47
DX: S91.012A Laceration without foreign body, left ankle, initial encounter (principal); W01.0XXA Fall on same level from slipping, tripping and stumbling without subsequent striking against object, initial encounter; Z79.01 Long term (current) use of anticoagulants; I25.10 Atherosclerotic heart disease of native coronary artery without angina pectoris; E78.5 Hyperlipidemia, unspecified; N18.3 Chronic kidney disease, stage 3 (moderate); I73.9 Peripheral vascular disease, unspecified; Z95.810 Presence of automatic (implantable) cardiac defibrillator; Z98.890 Other specified postprocedural states; Z87.891 Personal history of nicotine dependence; Z79.899 Other long term (current) drug therapy; Z88.6 Allergy status to analgesic agent; Z88.8 Allergy status to other drugs, medicaments and biological substances

== ENCOUNTER 2018-11-09 12:05 | Inpatient (IN) ==
--- NOTE | 2018-11-09 13:03 | XRay Report ---
XR chest 1V portable CLINICAL HISTORY: Chest Pain dyspnea COMPARISON STUDY: 02/23/2018 FINDINGS: Moderate stable cardiomegaly. Left ventricular myocardial calcification which has been desc ribed previously. Diaphragms are smooth. Lungs appear clear. IMPRESSION: Chronic change. Stable cardiomegaly. No acute process. The above report was generated using voice recognition software. It may contain grammatical, syntax or spelling errors. Electronically signed by: Zay Antony M.D. 11/09/2018 1:02 PM
[2018-11-09 13:13] LABS: Basophils # (auto) 0.02 K/uL (0-0.2); Basophils % (auto) 0.2 %; Eosinophils # (auto) 0.07 K/uL (0-0.5); Eosinophils % (auto) 0.6 %; Hematocrit (blood only) 42.2 % (37-47); Hemoglobin 14.4 g/dL (12.0-16.0); Immature Granulocytes # (auto) 0.03 K/uL (0.00-0.02); Immature Granulocytes % (auto) 0.3 %; Lymphocytes # (auto) 1.23 K/uL (1.2-3.4); Lymphocytes % (auto) 10.8 %; Mean Corpuscular Hgb Conc 34.1 g/dL (32-36); Mean Corpuscular Volume 101.4 fL (80-100); Mean Platelet Volume 12.1 fL (7.4-10.4); Monocytes # (auto) 1.05 K/uL (0.11-0.59); Monocytes % (auto) 9.3 %; Neutrophils # (auto) 8.95 K/uL (1.4-6.5); Neutrophils % (auto) 78.8 %; Platelet Count 179 K/uL (130-400); RDW Coefficient of Variation 15.2 % (11.5-14.5); RDW Standard Deviation 56.3 fL (36.4-46.3); Red Blood Count 4.16 M/uL (4.2-5.4); White Blood Count 11.35 K/uL (4.8-10.8)
[2018-11-09 13:33] LABS: Partial Thromboplastin Ratio 1.8; Prothrombin Time 56.3 Seconds (9.0-12.0)
[2018-11-09 13:34] LABS: Albumin Level 3.7 gm/dl (3.4-5.0); BUN Creatinine Ratio 15.9 (10-20); Calcium 8.5 mg/dl (8.5-10.1); Creatinine Clr Calc Pharmacy 31.1 ml/min; Est GFR (Non-African American) 37.1; Magnesium 2.2 mg/dl (1.8-2.4); Potassium 4.1 mmol/L (3.5-5.1)
[2018-11-09 13:40] LABS: Albumin Globulin Ratio 1.2 (0.9-2); Bilirubin,Total 0.7 mg/dl (0.2-1); Globulin 3.2 gm/dl (2.5-4.0); Total Protein 6.9 gm/dl (6.4-8.2); Troponin I 0.714 ng/ml (0-0.045)
[2018-11-09 13:42] LABS: INR 6.3 (0.9-1.1); Partial Thromboplastin Time 47.6 Seconds (21.0-31.0)
--- NOTE | 2018-11-09 14:33 | Emergency Department Note ---
Entered by Gissel Wynne acting as a scribe for History of Present Illness General Chief complaint: Cardiac Assessment Stated complaint: CHEST PAIN, SHAKES,FLUID RETENTION,URINARY URGENCY Source: patient and family (daughter) History of Present Illness Onset (ago): day(s) 2 Location: chest (middle) Radiation: abdomen (upper) Pain Consistency: + other (persistent) Maximum Pain Intensity: 5 Relieved By: not by medication (Coumadin) Exacerbated By: + other (breathing in deeply through her mouth) Associated symptoms: + denies other symptoms (cough, congestion, arm pain, back pain, new swelling in her legs) and + other (abdominal swelling, shortness of breath, weight loss, excess phlegm in throat, difficulty lying flat) The patient is a 83 year old female with a history of CAD, cardiomyopathy, CHF, CKD, HLD, PVD, ICD, ventricular tachycardia, and LV aneurysm that is presenting to the Emergency Room with complaints of persistent chest pain that started two days ago. The patient reports some associated shortness of breath. She notes that the pain is mostly associated with deep breaths through her mouth. She states that the pain will resolve if she shuts her mouth and sits up. She reports that the pain is mostly located in the middle of her chest and radiates down into her upper abdomen. The patients daughter notes that the patients O2 level drops when she tries to breath. She denies any coughs, congestion, arm pain, back pain, or new swelling in her legs. The patients daughter states that the patient has lost weight recently but notes that the patients abdomen appears more swollen today. The patient notes that the pain is not present currently on exam. She states that the pain last occurred this morning but she does not know what time it occurred. The patient reports that the pains have been worsening so she decided to come to the ED today. Her daughter notes that the patient recently moved to the [facility]. Her daughter states that the patient has had a couple of personal stressors in the past week but declines to state what they were. The patient denies that her defibrillator has been activated recently. She states that she has been eating normally. She notes that she is currently taking Coumadin. She denies any falls recently. Her daughter states that the patient has been unable to sleep lying flat recently. The patient reports that she has intermittent excess phlegm in her throat which makes it difficult to swallow. The patient notes that she has rhinorrhea at baseline. Home Medications Home Medications Medication Instructions Recorded Confirmed Type amiodarone 100 mg PO DAILY 02/23/18 02/23/18 History atorvastatin 10 mg PO DAILY 02/23/18 02/23/18 History cholecalciferol (vitamin D3) 2,000 unit PO DAILY 02/23/18 02/23/18 History [Vitamin D3] clopidogrel 75 mg PO DAILY 02/23/18 02/23/18 History digoxin 0.125 mg PO 3XWK 02/23/18 02/23/18 History donepezil [Aricept] 5 mg PO DAILY 02/23/18 02/23/18 History ferrous sulfate [Feosol] 325 mg PO BID 02/23/18 02/23/18 History furosemide [Lasix] 10 mg PO 3XWK 02/23/18 02/23/18 History metoprolol succinate [Toprol XL] 25 mg PO BID 02/23/18 02/23/18 History nitroglycerin [Nitro-Dur] 1 patch TRANSDERMAL DAILY 02/23/18 02/23/18 History nitroglycerin [Nitrostat] 1 tab SUBLINGUAL Q5M PRN 02/23/18 02/23/18 History pantoprazole 40 mg PO BID 02/23/18 02/23/18 History potassium chloride 20 meq PO DAILY 02/23/18 02/23/18 History prednisone 5 mg PO DAILY 02/23/18 02/23/18 History spironolactone 12.5 mg PO 3XWK 02/23/18 02/23/18 History warfarin 1.25 mg PO 3XWK 02/23/18 02/23/18 History warfarin 2.5 mg PO 4XWK 02/23/18 02/23/18 History Allergies Allergy/AdvReac Type Severity Reaction Status Date / Time mivacurium Allergy Severe ANAPHYLAXIS Verified 11/09/18 14:27 NSAIDS (Non-Steroidal Allergy Severe HIVES Verified 11/09/18 14:27 Anti-Inflamma aspirin Allergy Unknown hives Verified 11/09/18 14:27 erythromycin base Allergy Unknown . Verified 11/09/18 14:27 gabapentin Allergy Unknown myoclonus Verified 11/09/18 14:27 Past Med/Surg History Medical History Pulmonary embolism, bilateral (Chronic) Atrial thrombus (Chronic) CAD (coronary artery disease) (Chronic) Cardiomyopathy (Chronic) HLD (hyperlipidemia) (Chronic) PVD (peripheral vascular disease) (Chronic) CHF (congestive heart failure) (Chronic) ICD (implantable cardioverter-defibrillator) battery depletion (Chronic) CKD (chronic kidney disease), stage III (Chronic) Ventricular tachycardia (Chronic) PMR (polymyalgia rheumatica) (Chronic) Family History Other No significant family history Social History Preferred Language: German marital status: / Current Living Situation: Personal Care Facility Current Living Situation Comment: [facility] current occupational status: retired Feels Safe at Home: Yes Smoking Status: Former smoker Review of Systems See HPI for pertinent positives & negatives. and A total of 10 systems reviewed and were otherwise negative Physical Exam Vital Signs Vital Signs - 24 hr 11/09/18 12:10 11/09/18 12:30 11/09/18 12:45 Temperature 36.6 C Temperature Source Oral Sepsis Recent Fever Within 48 Hours No Sepsis New/Unexplained Change in Mental Status No Sepsis Action Taken by Nursing No Action Required Pulse Rate 54 L 54 L 55 L Pulse Rate [Apical] 55 L Pulse Rate from SpO2 Sensor 56 L Pulse Rhythm Pulse Rhythm [Apical] Regular Respiratory Rate 18 21 20 Respiratory Effort / Characteristics Non-Labored Spontaneous Non-Labored Spontaneous Respiratory Depth Normal Normal Respiratory Pattern Regular Regular Blood Pressure 133/79 144/75 H Blood Pressure [Right Arm] 144/75 H Blood Pressure Mean 97 98 Blood Pressure Mean [Right Arm] 98 Blood Pressure Position Sitting Pulse Oximetry 97 95 Oxygen Delivery Method Room Air Room Air 11/09/18 12:47 11/09/18 13:00 11/09/18 13:30 Temperature Temperature Source Sepsis Recent Fever Within 48 Hours Sepsis New/Unexplained Change in Mental Status Sepsis Action Taken by Nursing Pulse Rate 54 L 54 L 54 L Pulse Rate [Apical] Pulse Rate from SpO2 Sensor 53 L 55 L Pulse Rhythm Regular Pulse Rhythm [Apical] Respiratory Rate 17 19 Respiratory Effort / Characteristics Respiratory Depth Respiratory Pattern Blood Pressure 145/68 H 128/73 Blood Pressure [Right Arm] Blood Pressure Mean 93 91 Blood Pressure Mean [Right Arm] Blood Pressure Position Pulse Oximetry 94 96 94 Oxygen Delivery Method Room Air GENERAL: Awake, alert, in no distress on litter. HENT: Normocephalic, atraumatic. EYES: Normal conjunctiva. Sclera non-icteric. NECK: Supple. No nuchal rigidity. RESPIRATORY: Clear to auscultation other than diminished bases. Normal respiratory effort. CARDIAC: Normal rate. Normal rhythm. Extremities warm and well perfused. GI: Soft, non-distended. No tenderness to palpation. No rebound or guarding. RECTAL: Deferred. MUSCULOSKELETAL: Atraumatic. Chest examination reveals no tenderness. LOWER EXTREMITIES: Calves are equal size bilaterally and non-tender. Trace bilateral pedal edema. NEURO: No sensory or motor deficits noted. No facial droop or slurred speech. Some memory issues are noted on exam. SKIN: Warm and dry. No jaundice noted. Contusion on the right hand. Course 1229:The patient was evaluated in room B02. A complete history and physical examination was performed. 1250: I discussed the patients case with Dr. Araiza, Cardiology, who will evaluate the patient further. 1356: After evaluation of the patient, Dr. Araiza recommended that the patient be kept in the hospital for further management. He recommended that the patient be started on Lasix due to possible heart failure. 1405: I discussed the patient's case with Gregg Brunson, who will evaluate the patient for further management and care. 1415: Upon reevaluation, the patient is resting comfortably. I discussed laboratory and radiographic results with the patient. She verbalized agreement of the treatment plan. The patient will be evaluated for further management and care. Consultations Consultation #1: I discussed the patients case with Dr. Araiza, Cardiology, who will evaluate the patient further. Time: 12:50 Consultation #2: After evaluation of the patient, Dr. Araiza recommended that the patient be kept in the hospital for further management. He recommended that the patient be started on Lasix due to possible heart failure. Time: 13:56 Consultation #3: I discussed the patient's case with Gregg Polo, who will evaluate the patient for further management and care. Time: 14:05 Medical Decision Making Differential Diagnosis Differential diagnosis: Etiologies such as cardiac ischemia, aortic dissection, pulmonary embolism, pneumonia, pneumothorax, musculoskeletal, infections, pericarditis, myocarditis, esophageal rupture, gastrointestinal, as well as others were entertained. Medical Records Attestation: I reviewed the patient's medical records. Home Medications Current Medication List: was personally reviewed by me Laboratory Data Attestation: I reviewed the patient's lab results. Result diagrams: 11/09/18 12:55 11/09/18 12:55 Lab Results 11/09/18 11/09/18 11/09/18 Range/Units 12:55 12:55 12:55 WBC 11.35 H (4.8-10.8) K/uL RBC 4.16 L (4.2-5.4) M/uL Hgb 14.4 (12.0-16.0) g/dL Hct 42.2 (37-47) % MCV 101.4 H (80-100) fL MCH 34.6 H (25-34) pg MCHC 34.1 (32-36) g/dL RDW Std Deviation 56.3 H (36.4-46.3) fL RDW Coeff of Livier 15.2 H (11.5-14.5) % Plt Count 179 (130-400) K/uL MPV 12.1 H (7.4-10.4) fL Immature Gran % (Auto) 0.3 % Neut % (Auto) 78.8 % Lymph % (Auto) 10.8 % Redwood % (Auto) 9.3 % Eos % (Auto) 0.6 % Baso % (Auto) 0.2 % Immature Gran # (Auto) 0.03 H (0.00-0.02) K/uL Neut # (Auto) 8.95 H (1.4-6.5) K/uL Lymph # (Auto) 1.23 (1.2-3.4) K/uL Redwood # (Auto) 1.05 H (0.11-0.59) K/uL Eos # (Auto) 0.07 (0-0.5) K/uL Baso # (Auto) 0.02 (0-0.2) K/uL PT 56.3 H (9.0-12.0) Seconds INR 6.3 H* (0.9-1.1) APTT 47.6 H* (21.0-31.0) Seconds PTT Ratio 1.8 Sodium 144 (136-145) mmol/L Potassium 4.1 (3.5-5.1) mmol/L Chloride 109 H (98-107) mmol/L Carbon Dioxide 28 (21-32) mmol/L Anion Gap 7.0 (3-11) BUN 21 H (7-18) mg/dl Creatinine 1.33 H (0.6-1.2) mg/dl Est Cr Clr Drug Dosing 31.1 ml/min Est GFR ( Amer) 43.0 Est GFR (Non-Af Amer) 37.1 BUN/Creatinine Ratio 15.9 (10-20) Glucose 113 H (70-99) mg/dl Calcium 8.5 (8.5-10.1) mg/dl Magnesium 2.2 (1.8-2.4) mg/dl Total Bilirubin 0.7 (0.2-1) mg/dl AST 22 (15-37) U/L ALT 20 (12-78) U/L Alkaline Phosphatase 52 (45-117) U/L POC Troponin I (0-0.045) ng/ml Troponin I 0.714 H* (0-0.045) ng/ml Total Protein 6.9 (6.4-8.2) gm/dl Albumin 3.7 (3.4-5.0) gm/dl Globulin 3.2 (2.5-4.0) gm/dl Albumin/Globulin Ratio 1.2 (0.9-2) Lipase 101 (73-393) U/L Specimen Hemolysis Digoxin (0.8-2.0) ng/ml 11/09/18 11/09/18 Range/Units 12:55 13:08 WBC (4.8-10.8) K/uL RBC (4.2-5.4) M/uL Hgb (12.0-16.0) g/dL Hct (37-47) % MCV (80-100) fL MCH (25-34) pg MCHC (32-36) g/dL RDW Std Deviation (36.4-46.3) fL RDW Coeff of Livier (11.5-14.5) % Plt Count (130-400) K/uL MPV (7.4-10.4) fL Immature Gran % (Auto) % Neut % (Auto) % Lymph % (Auto) % Redwood % (Auto) % Eos % (Auto) % Baso % (Auto) % Immature Gran # (Auto) (0.00-0.02) K/uL Neut # (Auto) (1.4-6.5) K/uL Lymph # (Auto) (1.2-3.4) K/uL Redwood # (Auto) (0.11-0.59) K/uL Eos # (Auto) (0-0.5) K/uL Baso # (Auto) (0-0.2) K/uL PT (9.0-12.0) Seconds INR (0.9-1.1) APTT (21.0-31.0) Seconds PTT Ratio Sodium (136-145) mmol/L Potassium (3.5-5.1) mmol/L Chloride (98-107) mmol/L Carbon Dioxide (21-32) mmol/L Anion Gap (3-11) BUN (7-18) mg/dl Creatinine (0.6-1.2) mg/dl Est Cr Clr Drug Dosing ml/min Est GFR ( Amer) Est GFR (Non-Af Amer) BUN/Creatinine Ratio (10-20) Glucose (70-99) mg/dl Calcium (8.5-10.1) mg/dl Magnesium (1.8-2.4) mg/dl Total Bilirubin (0.2-1) mg/dl AST (15-37) U/L ALT (12-78) U/L Alkaline Phosphatase (45-117) U/L POC Troponin I 0.57 H (0-0.045) ng/ml Troponin I (0-0.045) ng/ml Total Protein (6.4-8.2) gm/dl Albumin (3.4-5.0) gm/dl Globulin (2.5-4.0) gm/dl Albumin/Globulin Ratio (0.9-2) Lipase (73-393) U/L Specimen Hemolysis Digoxin 0.6 L (0.8-2.0) ng/ml Imaging Data Radiologist's Impression: Radiology results as stated below per my review and the radiologist's interpretation: XR chest 1V portable CLINICAL HISTORY: Chest Pain dyspnea COMPARISON STUDY: 02/23/2018 FINDINGS: Moderate stable cardiomegaly. Left ventricular myocardial calcification which has been described previously. Diaphragms are smooth. Lungs appear clear. IMPRESSION: Chronic change. Stable cardiomegaly. No acute process. The above report was generated using voice recognition software. It may contain grammatical, syntax or spelling errors. Electronically signed by: Zay Antony M.D. 11/09/2018 1:02 PM ECG Data Attestation: I personally reviewed and interpreted this ECG as follows: Indication: chest pain Rate (beats per minute): 63 Rhythm: sinus rhythm Findings: + ST depression (inferior, lateral) and + ST elevation (v1, v2); no PVC Comparison ECG Date: from (04/27/16) Change: the following changes noted (Inferior depressions worsened) Blood Pressure Blood Pressure Findings: Normal blood pressure MDM Narrative cardiac history including CAD, cardiomyopathy, heart failure, CKD currently maintained on Coumadin as well as digoxin and amiodarone. Patient does have a history of LV aneurysm. Not on aspirin due to allergic symptoms. States she has had pain for a while worsening last several days last this morning. States the pain is worse when he takes deep breath. Radiates from the mid chest into her upper abdomen. Some shortness of breath at times. Denies any real exertional component. Denies active pain on evaluation. Initial EKG is reviewed here with concerning inferior ST depression as well as V1 V2 elevations. Compared to previous from April 27, 2016 there is a change in morphology notable here. Given as the patient on multiple questioning denies symptoms at the present time did not immediately call heart alert but conferred with cardiology. Dr Araiza knows the patient and believes the anterior ST segment changes are likely aneurysmal change. The lateral ST depressions are little bit improved in the inferior ST depressions appear worsened. Again patient is denying active pain at this time. Troponin is elevated compared to previous but has had times had similar elevations. Patient has an elevated INR and significant allergy to aspirin. Will not heparinize given this or receive aspirin at this time. I doubt this represents pneumonia or pneumothorax. I doubt PE based on her anticoagulation. Dr. Syed evaluated the patient and discussed with family members options. He believes there may be amount of fluid overload causing some demand ischemia. Will give a very small amount of Lasix for possible heart failure component and recommend she be brought into the hospital. He and family have discussed and will defer additional imaging to look for dissection at this time. [facility] hospitalist contacted. Impression & Plan Non-ST elevation OR (NSTEMI), Elevated INR, Chest pain Discharge Plan Visit Data Chief Complaint: Cardiac Assessment Stated Complaint: CHEST PAIN, SHAKES,FLUID RETENTION,URINARY URGENCY ED Provider: Real Whitlock Discharge Problem: Non-ST elevation OR (NSTEMI), Elevated INR, Chest pain Patient Disposition: Being Evaluated by Hospitalist Forms Stand Alone Forms: My [facility] Prescriptions Prescriptions: No Action donepezil [Aricept] 5 mg Tablet 5 mg PO DAILY RF: 0 atorvastatin 10 mg Tablet 10 mg PO DAILY RF: 0 nitroglycerin [Nitro-Dur] 0.2 mg/hr Patch 24 Hour 1 patch TRANSDERMAL DAILY RF: 0 prednisone 5 mg Tablet 5 mg PO DAILY RF: 0 warfarin 2.5 mg Tablet 1.25 mg PO 3XWK RF: 0 warfarin 2.5 mg Tablet 2.5 mg PO 4XWK RF: 0 potassium chloride 10 mEq Tablet Extended Release 20 meq PO DAILY RF: 0 clopidogrel 75 mg Tablet 75 mg PO DAILY RF: 0 spironolactone 25 mg Tablet 12.5 mg PO 3XWK RF: 0 pantoprazole 40 mg Tablet,Delayed Release (Dr/Ec) 40 mg PO BID RF: 0 ferrous sulfate [Feosol] 325 mg (65 mg iron) Tablet 325 mg PO BID RF: 0 nitroglycerin [Nitrostat] 0.4 mg Tablet, Sublingual 1 tab Sublingual Q5M PRN (Reason: Chest Pain) RF: 0 digoxin 125 mcg Tablet 0.125 mg PO 3XWK RF: 0 furosemide [Lasix] 20 mg Tablet 10 mg PO 3XWK RF: 0 metoprolol succinate [Toprol XL] 25 mg Tablet Extended Release 24 Hr 25 mg PO BID RF: 0 amiodarone 100 mg Tablet 100 mg PO DAILY RF: 0 cholecalciferol (vitamin D3) [Vitamin D3] 2,000 unit Capsule 2,000 unit PO DAILY RF: 0 [facility] - The scribe's documentation has been prepared under my direction and personally reviewed by me in its entirety. I confirm that the note above accurately reflects all work, treatment, procedures, and medical decision making performed by me.
[2018-11-09] MEDS ORDERED: FUROSEMIDE 10 MG in SYRINGE 0 ML IV STA (15:14)
--- NOTE | 2018-11-09 15:25 | Cardiology Consultation ---
Date of Consultation November 09, 2018 Assessment & Plan (1) Ischemic dilated cardiomyopathy: Patient presents with symptoms that she describes to me as being increased shortness of breath, and a vague sensation of chest discomfort only when she tries to feel deeply through her mouth. EKG performed in the emergency room reveals sinus rhythm with ST segment elevation noted in lead V2 consistent with her known history of an LAD territory aneurysm, and it is relatively unchanged compared to an outpatient EKG performed in the [facility] system dated 10/27/2016. Subtle inferior ST segment depression is noted in the inferior leads on the current EKG that is new compared to 2017. Patient has a long-standing history of a severe ischemic cardiomyopathy due to completed LAD territory myocardial infarction, with left ventricular aneurysm, and history of low cardiac output symptoms. She has done remarkably well with medication therapy at her most recent heart failure admission had been back in 2017. Although her recent increase in shortness of breath may be due to additional angina, she is done very well with conservative medication therapy for years, and I think the best initial treatment in the absence of new ST segment elevation is ongoing conservative therapy. Her troponin is mildly elevated, but this has been present on a chronic basis on past admissions dating back years. She does note a mild increase in abdominal fullness, and I am going to initiate treatment with a very low dose of IV furosemide 10 mg, as typically she has responded to low doses in the past. Avoiding unfractioned heparin as she is on Coumadin, and she has elevated INR. (2) Elevated INR: Patient's INR is elevated. She is on Coumadin due to her chronic LV aneurysm to prevent left ventricular mural thrombus, as well as for her history of pulmonary emboli. Recommend holding Coumadin, and allowing her INR to come down slowly on its own as there are no stigmata of acute bleeding. Echocardiogram has been requested to reassess her LV systolic function. I had a long discussion with the patient and her daughter. History of Present Illness History of Present Illness Cady Nur is an 83 year old female seen in cardiology consultation in room B2 of the emergency department per the request of Dr Whitlock of the ED. The patient resides at [facility]. She is accompanied by her daughter Megan who is at the bedside. The patient was transferred to the emergency room from the [facility] for assessment of shortness of breath and low pulse oximetry levels. She states that if she takes a deep breath through her mouth she has a pain in her chest that is not there if she breathes through her nose. She denies any recent exertional chest pain. During my assessment, the patient was remarkably comfortable. She actually did not describe a history of recent chest pain readily until I prompted her to. Although I have not seen her recently, I am familiar with the patient and her complex past cardiac history from prior admissions. Per my recollection, her cognitive status has declined quite a bit since last time I have seen her, and she is not a good historian. Her daughter agrees with me that she the patient has declined from a cognitive standpoint over the last few years. Patient has not had any recent significant lower extremity edema. The patient's daughter does observed that the patient's abdomen appears a bit more distended when she lays flat compared to her typical baseline. She most recently been seen in outpatient cardiology follow-up by Zay Willis PA-C of our practice in June, at which time stable cardiac signs and symptoms were noted and her volume status was well compensated given her history of severe ischemic cardiomyopathy. Past Cardiac / Vascular History: 1. Chronic coronary heart disease which dates back to May 2011 she presented with an LAD territory ST segment elevation myocardial infarction. She is found to have an acute thrombotic occlusion of the early mid LAD. Attempts to intervene on the LAD occlusion were not successful and were complicated by per foration. Moderate diffuse 30 to 50% RCA disease was noted along with a 50% proximal circumflex lesion and a 75 to 85% mid circumflex lesion. CABG had been discussed at that time, but ultimately conservative medication therapy was pursued 2. Having completed the LAD territory myocardial infarction she developed a large anterior, anteroseptal, apical aneurysm and ischemic cardiomyopathy, LVEF in the range of 15-25% most recent measurement 2017 at [facility] 3. Implantation of single-chamber [employer] AICD in November 2011, with subsequent lead failure and revision November 2011. 4. Symptomatic sustained ventricular tachycardia in January 2015 prompting initiation of amiodarone. Center to likely be scar mediated VT. 5. History of multiple bilateral pulmonary embolism 2011 6. Urticaria with aspirin. Allergies Allergy/AdvReac Type Severity Reaction Status Date / Time mivacurium Allergy Severe ANAPHYLAXIS Verified 11/09/18 14:27 NSAIDS (Non-Steroidal Allergy Severe HIVES Verified 11/09/18 14:27 Anti-Inflamma aspirin Allergy Unknown hives Verified 11/09/18 14:27 erythromycin base Allergy Unknown . Verified 11/09/18 14:27 gabapentin Allergy Unknown myoclonus Verified 11/09/18 14:27 Home Medications Home Medications Medication Instructions Recorded Confirmed Type amiodarone 100 mg PO DAILY 02/23/18 11/09/18 History cholecalciferol (vitamin D3) 2,000 unit PO DAILY 02/23/18 11/09/18 History [Vitamin D3] clopidogrel 75 mg PO DAILY 02/23/18 11/09/18 History digoxin 0.125 mg PO MOWEFR 02/23/18 11/09/18 History donepezil [Aricept] 5 mg PO DAILY 02/23/18 11/09/18 History ferrous sulfate [Feosol] 325 mg PO BID 02/23/18 11/09/18 History furosemide [Lasix] 10 mg PO MOWEFR 02/23/18 11/09/18 History metoprolol succinate [Toprol XL] 25 mg PO BID 02/23/18 11/09/18 History nitroglycerin [Nitro-Dur] 1 patch TRANSDERMAL DAILY 02/23/18 11/09/18 History nitroglycerin [Nitrostat] 1 tab SUBLINGUAL Q5M PRN 02/23/18 11/09/18 History pantoprazole 40 mg PO BID 02/23/18 11/09/18 History potassium chloride 10 meq PO SUTUTHSA 02/23/18 11/09/18 History prednisone 5 mg PO DAILY 02/23/18 11/09/18 History spironolactone 25 mg PO DAILY 02/23/18 11/09/18 History warfarin 1.25 mg PO MO 02/23/18 11/09/18 History warfarin 2.5 mg PO SUTUWETHFRSA 02/23/18 11/09/18 History atorvastatin 20 mg PO DAILY 11/09/18 11/09/18 History cetirizine 10 mg PO DAILY 11/09/18 11/09/18 History cyanocobalamin (vitamin B-12) 1,000 mcg PO BID 11/09/18 11/09/18 History [Vitamin B-12] mirtazapine 15 mg PO HS 11/09/18 11/09/18 History potassium chloride 20 meq PO MOWEFR 11/09/18 11/09/18 History Patient History Medical History Pulmonary embolism, bilateral (Chronic) Atrial thrombus (Chronic) CAD (coronary artery disease) (Chronic) Cardiomyopathy (Chronic) HLD (hyperlipidemia) (Chronic) PVD (peripheral vascular disease) (Chronic) CHF (congestive heart failure) (Chronic) ICD (implantable cardioverter-defibrillator) battery depletion (Chronic) CKD (chronic kidney disease), stage III (Chronic) Ventricular tachycardia (Chronic) PMR (polymyalgia rheumatica) (Chronic) Family History Other No significant family history Social History Preferred Language: Turkmen marital status: / Current Living Situation: Personal Care Facility Current Living Situation Comment: [facility] current occupational status: 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, her dog "Priscila" in 2018 Feels Safe at Home: Yes Smoking Status: Former smoker Review of Systems Review of Systems: All systems reviewed & are unremarkable except as noted in HPI & below Physical Exam Physical Exam: Temp Pulse Resp BP Pulse Ox 36.6 C 54 L 19 128/73 94 11/09/18 12:10 11/09/18 13:30 11/09/18 13:30 11/09/18 13:30 11/09/18 13:30 Constitutional: Chronically ill in appearance without acute distress Respiratory: normal respiratory effort, lungs clear to auscultation Cardiovascular: RRR, no murmur, no edema Vessels: + JVD Extremities: no edema Gastrointestinal (Abdomen): Abdomen soft nontender, mildly distended Neurologic: moves all extremities; no focal motor deficits Results & Data Laboratory Results Cardiac Enzymes 11/09/18 Range/Units 12:55 AST 22 (15-37) U/L Troponin I 0.714 H* (0-0.045) ng/ml Coagulation 11/09/18 Range/Units 12:55 PT 56.3 H (9.0-12.0) Seconds APTT 47.6 H* (21.0-31.0) Seconds CBC 11/09/18 Range/Units 12:55 WBC 11.35 H (4.8-10.8) K/uL RBC 4.16 L (4.2-5.4) M/uL Hgb 14.4 (12.0-16.0) g/dL Hct 42.2 (37-47) % Plt Count 179 (130-400) K/uL Neut # (Auto) 8.95 H (1.4-6.5) K/uL Lymph # (Auto) 1.23 (1.2-3.4) K/uL Tw[place]gs # (Auto) 1.05 H (0.11-0.59) K/uL Eos # (Auto) 0.07 (0-0.5) K/uL Baso # (Auto) 0.02 (0-0.2) K/uL Comprehensive Metabolic Panel 11/09/18 Range/Units 12:55 Sodium 144 (136-145) mmol/L Potassium 4.1 (3.5-5.1) mmol/L Chloride 109 H (98-107) mmol/L Carbon Dioxide 28 (21-32) mmol/L BUN 21 H (7-18) mg/dl Creatinine 1.33 H (0.6-1.2) mg/dl Glucose 113 H (70-99) mg/dl Calcium 8.5 (8.5-10.1) mg/dl AST 22 (15-37) U/L ALT 20 (12-78) U/L Alkaline Phosphatase 52 (45-117) U/L Total Protein 6.9 (6.4-8.2) gm/dl Albumin 3.7 (3.4-5.0) gm/dl Intake and Output 11/09/18 11/09/18 11/09/18 06:59 14:59 22:59 Other: Weight 75.9 kg Patient Weight 11/10/18 06:59 Weight 75.9 kg
[2018-11-09] MEDS ORDERED: FUROSEMIDE 40 MG/4 ML VIAL IV STA (15:40)
[2018-11-09 15:55] LABS: iSTAT Creatinine 1.3 mg/dl (0.6-1.3); iSTAT Hemoglobin 14.3 g/dl (12.0-16.0); iSTAT Ionized Calcium 1.11 mmol/l (1.12-1.32); iSTAT Potassium 3.9 mEq/L (3.3-5.0)
--- NOTE | 2018-11-09 15:59 | History & Physical Report ---
Date of Service November 09, 2018 Assessment & Plan (1) Heart failure, systolic, with acute decompensation: (2) Ischemic dilated cardiomyopathy: This is an 83yo F with a PMH of chronic systolic heart failure 2/2 severe ischemic cardiomyopathy (EF: 15-25% in 2017), history of AICD placement, CAD with LAD occlusion complicated by perforation, h/o vtach, h/o PEs on coumadin, giant cell arteritis, CKD III and other medical problems listed below who presents with shortness of breath x 3 days and was found to have acute decompensated heart failure. -Orthopnea, SOB x 3 days, vague chest discomfort when breathing through mouth -H/p ischemic cardiomyopathy with EF: 15-25% on 2017 TTE -+ JVD and mild abdominal distention on exam, lung sounds clear, no BLE edema -Given 10mg IV Lasix for diuresis, per Dr. Araiza. Has responded to conservative Lasix doses in the past -Continue spironalactone, beta laya -Strict I&Os, daily weights, low sodium diet (3) Non-ST elevation [place] (NSTEMI): Initial troponin 0.714 with vague chest pain that has since resolved -In setting of known CAD, h/o ST segment elevation noted in lead V2 consistent with her known history of an LAD territory aneurysm that is relatively unchanged per outpatient EKG -Evidence of new ST depression in inferior leads -Evaluated by Dr. Araiza in ED, who feels that best initial treatment in absence of new ST segment elevation is ongoing conservative therapy. Trop elev ation appears somewhat chronic -Avoiding unfractionated heparin due to supratherapeutic INR on coumadin -Intolerant to aspirin due to urticaria -Continue statin -Trend troponin, monitor on telemetry (4) Elevated INR: INR of 6.3, no evidence of active bleeding -H/o multiple PEs in the past -Hold coumadin and monitor daily INR (5) Ventricular tachycardia: Continue amiodarone (6) Giant cell arteritis: Continue prednisone (7) CKD (chronic kidney disease), stage III: Cr 1.33 (baseline ~1.1), at upper limit of baseline -Monitor kidney function with daily BMP (8) ICD (implantable cardioverter-defibrillator) battery depletion: Placed in 2011 (9) Anemia of chronic disease: Hgb at baseline -Continue iron supplement (10) PVD (peripheral vascular disease): Continue plavix, statin, intolerant to aspirin DVT Ppx: INR supratherapeutic. Monitor and resume coumadin when appropriate Code status: DNR per discussion with POA/daughter Megan PCP: Alfred Dispo: Admited to PCU. Discharge planning ordered. Patient seen in collaboration with Dr. Vazquez. Please see addendum. History of Present Illness Chief Complaint: Shortness of breath, chest pain Primary Care Provider: [facility] This is an 83yo F with a PMH of chronic systolic heart failure 2/2 severe ischemic cardiomyopathy (EF: 15-25% in 2017), history of AICD placement, CAD with LAD occlusion complicated by perforation, h/o vtach, h/o PEs on coumadin, giant cell arteritis, CKD III and other medical problems listed below who presents with shortness of breath x 3 days. Patient has dementia and is a poor historian. History is obtained by daughter, Megan, at bedside. For the past few days, patient has felt more short of breath has been unable to lie flat. Also complains of central chest discomfort if she takes a deep breath through he r mouth but does not though she breathes through her nose. Is currently chest pain-free in the ED. Patient endorses weight gain, but daughter states that facility notes recent weight loss. No lower extremity edema. Denies any fever, chills, lightheadedness, visual changes, headache, palpitations, nausea, vomiting, abdominal pain, dysuria, hematuria, diarrhea, constipation, melena or hematochezia. Is on Coumadin for history of multiple PEs and INR supratherapeutic today at 6.3. Denies any bleeding but states that stool has been a darker brown/black color for the past year. Patient is hemodynamically stable. Troponin elevation 0.714 initially. Follows with [facility] [place] for complex history. Megan (LORENAA) at bedside confirms that patient is DNR. CABG has been discussed in the past but family not interested in coronary intervention at this time. Has history of urticaria with aspirin. Allergies Allergy/AdvReac Type Severity Reaction Status Date / Time mivacurium Allergy Severe ANAPHYLAXIS Verified 11/09/18 14:27 NSAIDS (Non-Steroidal Allergy Severe HIVES Verified 11/09/18 14:27 Anti-Inflamma aspirin Allergy Unknown hives Verified 11/09/18 14:27 erythromycin base Allergy Unknown . Verified 11/09/18 14:27 gabapentin Allergy Unknown myoclonus Verified 11/09/18 14:27 Home Medications Home Medications Medication Instructions Recorded Confirmed Type amiodarone 100 mg PO DAILY 02/23/18 11/09/18 History cholecalciferol (vitamin D3) 2,000 unit PO DAILY 02/23/18 11/09/18 History [Vitamin D3] clopidogrel 75 mg PO DAILY 02/23/18 11/09/18 History digoxin 0.125 mg PO MOWEFR 02/23/18 11/09/18 History donepezil [Aricept] 5 mg PO DAILY 02/23/18 11/09/18 History ferrous sulfate [Feosol] 325 mg PO BID 02/23/18 11/09/18 History furosemide [Lasix] 10 mg PO MOWEFR 02/23/18 11/09/18 History metoprolol succinate [Toprol XL] 25 mg PO BID 02/23/18 11/09/18 History nitroglycerin [Nitro-Dur] 1 patch TRANSDERMAL DAILY 02/23/18 11/09/18 History nitroglycerin [Nitrostat] 1 tab SUBLINGUAL Q5M PRN 02/23/18 11/09/18 History pantoprazole 40 mg PO BID 02/23/18 11/09/18 History potassium chloride 10 meq PO SUTUTHSA 02/23/18 11/09/18 History prednisone 5 mg PO DAILY 02/23/18 11/09/18 History spironolactone 25 mg PO DAILY 02/23/18 11/09/18 History warfarin 1.25 mg PO MO 02/23/18 11/09/18 History warfarin 2.5 mg PO SUTUWETHFRSA 02/23/18 11/09/18 History atorvastatin 20 mg PO DAILY 11/09/18 11/09/18 History cetirizine 10 mg PO DAILY 11/09/18 11/09/18 History cyanocobalamin (vitamin B-12) 1,000 mcg PO BID 11/09/18 11/09/18 History [Vitamin B-12] mirtazapine 15 mg PO HS 11/09/18 11/09/18 History potassium chloride 20 meq PO MOWEFR 11/09/18 11/09/18 History Past Med/Surg History Medical History Ischemic dilated cardiomyopathy (Chronic) Chronic systolic heart failure (Chronic) Pulmonary embolism, bilateral (Chronic) Atrial thrombus (Chronic) CAD (coronary artery disease) (Chronic) HLD (hyperlipidemia) (Chronic) PVD (peripheral vascular disease) (Chronic) ICD (implantable cardioverter-defibrillator) battery depletion (Chronic) CKD (chronic kidney disease), stage III (Chronic) Ventricular tachycardia (Chronic) PMR (polymyalgia rheumatica) (Chronic) Surgical History History of implantable cardioverter-defibrillator (ICD) placement (Chronic) Family History Other Heart disease Social History Preferred Language: Hong Konger Communication Ability: Effective Covering Machine Operator Required: No Beliefs That Will Affect Care: None marital status: / Current Living Situation: Personal Care Facility Current Living Situation Comment: [facility] current occupational status: retired Other Information That Helps Us Care for You: No 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 Physical Exam Physical Exam: General Appearance: WD/WN, no apparent distress, appears chronically ill Head: normocephalic, atraumatic Eyes: normal inspection, PERRL, EOMI ENT: hearing grossly normal, pharynx normal (moist mucous membranes) Neck: supple, no adenopathy Respiratory/Chest: lungs clear to auscultation. No wheezes, rales or rhonci. No respiratory distress or accessory muscle use Cardiovascular: + JVD, regular rate & rhythm, no murmur appreciated, normal peripheral pulses, no BLE edema Abdomen/GI: normal bowel sounds, soft, mild distention, non-tender to palpation Extremities/Musculoskelatal: normal inspection, no calf tenderness, normal capillary refill Neurologic/Psych: alert & oriented x 3 but situational confusion, poor historian, normal mood/affect Skin: normal color, warm/dry. Small ecchymosis on bilateral arms legs Results & Data Vital Signs (Past 12 Hours) Vital Signs Temp Pulse Pulse Resp BP BP Pulse Ox 11/09/18 15:33 55 L 18 123/66 97 11/09/18 13:30 54 L 19 128/73 94 11/09/18 13:00 54 L 17 145/68 H 96 11/09/18 12:47 54 L 94 11/09/18 12:45 55 L 55 L 20 144/75 H 144/75 H 95 11/09/18 12:30 54 L 21 11/09/18 12:10 36.6 C 54 L 18 133/79 97 Laboratory Results Short CBC 11/09/18 11/09/18 Range/Units 12:55 12:55 WBC 11.35 H (4.8-10.8) K/uL Hgb 14.4 (12.0-16.0) g/dL Hct 42.2 (37-47) % Plt Count 179 (130-400) K/uL Creatinine 1.33 H (0.6-1.2) mg/dl Est GFR (Non-Af Amer) 37.1 BMP 11/09/18 12:55 Sodium 144 Potassium 4.1 Chloride 109 H Carbon Dioxide 28 BUN 21 H Creatinine 1.33 H Glucose 113 H Calcium 8.5 Cardiac Enzymes 11/09/18 Range/Units 12:55 Troponin I 0.714 H* (0-0.045) ng/ml Liver Function 11/09/18 Range/Units 12:55 Total Bilirubin 0.7 (0.2-1) mg/dl AST 22 (15-37) U/L ALT 20 (12-78) U/L Alkaline Phosphatase 52 (45-117) U/L Albumin 3.7 (3.4-5.0) gm/dl Diagnostic Findings CXR: IMPRESSION: Chronic change. Stable cardiomegaly. No acute process. ECG Rhythm: normal sinus Findings: + ST depression (inferior leads ) and + left axis deviation Code Status & VTE Plan VTE Prophylaxis Plan VTE Prophylaxis will be ordered: Yes Supervising Physician Co-Signing Physician Notes I have seen and examined the patient and have discussed the case with the provider above. I agree with the assessment and plan as stated with the following exceptions. 83 yo F with h/o LAD aneurysm as a complication of prior heart catheterization who [facility] with some nonspecific concerns. When asked what she was experiencing, she reported multiple things, fixating on a vein in the back of her head, which she thinks caused her problems when she laid her head back on it too much. When asked if she feels swollen she reports gaining 8 lbs since Apr. She first stated that her old house of 50 years was sold last week, then it was sold in Apr 2018. She is denying overt chest pain, shortness of breath or other clearcut symptom. She states it's more of a collection of symptoms, and she is clearly a very poor historian. Workup revealed new ST depressions in inferior leads on EKG and ST elevations in V1 and V2. Dr. Araiza was consulted and was less convinced her symptoms were related to angina as she was comfortable, with a h/o ST elevation of prior EKGs and a h/o elevated troponins in the past, which was also slightly elevated. Physical exam reveals a hemodynamically stable and afebrile patient in no acute distress. She was WNWD, with warm and dry skin and moist mucous membranes. Lung sounds revealed diminished breath sounds at the bases bilaterally. On heart exam S1/2 was heard and there was no murmur present. There was no prema edema on exam. I discussed the case with Dr. Araiza who is planning to diurese her overnight and continue monitoring her. Assessment (1) acute heart failure, (2) elevated troponin 2/2 demand ischemia, (3) supratherapeutic INR. Cont plan as above. DO George
[2018-11-09] MEDS ORDERED: NITROGLYCERIN 0.2 MG/HR PATCH TD PRN (17:11)
[2018-11-09] MEDS ORDERED: NITROGLYCERIN SL 0.4 MG/TAB TAB SL PRN (17:11)
[2018-11-09] MEDS ORDERED: POTASSIUM CHLORIDE 10 MEQ TABCR PO SCH (18:00)
[2018-11-09] MEDS ORDERED: ONDANSETRON INJ 2 MG/ML 2 ML VIAL IV PRN (18:42)
[2018-11-09] MEDS ORDERED: POLYETHYLENE (MIRALAX) 17 GM PACK PO PRN (18:42)
[2018-11-09] MEDS: METOPROLOL SUCC 25MG EXT REL TAB PO SCH (20:09)
[2018-11-09] MEDS: MIRTAZAPINE TAB 15 MG TAB PO SCH (20:09)
[2018-11-09] MEDS: PANTOprazole 40 MG TAB PO SCH (20:10)
[2018-11-09] MEDS: CYANOCOBALAMIN 500 MCG TABLET (VITAMIN B-12) PO SCH (20:10)
[2018-11-09] MEDS: FERROUS SULFATE 325 MG TAB PO SCH (20:11)
[2018-11-10 06:18] LABS: Hemoglobin 12.8 g/dL (12.0-16.0); Mean Corpuscular Hgb Conc 32.8 g/dL (32-36); Mean Corpuscular Volume 101.6 fL (80-100); Mean Platelet Volume 12.1 fL (7.4-10.4); Platelet Count 158 K/uL (130-400); RDW Coefficient of Variation 15.3 % (11.5-14.5); RDW Standard Deviation 56.2 fL (36.4-46.3); Red Blood Count 3.84 M/uL (4.2-5.4); White Blood Count 7.13 K/uL (4.8-10.8)
[2018-11-10 06:42] LABS: INR 6.7 (0.9-1.1)
[2018-11-10 06:55] LABS: BUN Creatinine Ratio 17.2 (10-20); Calcium 7.9 mg/dl (8.5-10.1); Est GFR (African American) 42.7; Est GFR (Non-African American) 36.8; Potassium 3.7 mmol/L (3.5-5.1)
[2018-11-10] MEDS ORDERED: PNEUMOCOCCAL POLYSACCHARIDES 25 MCG/0.5 ML VIAL/SYR IM ONE (08:00)
[2018-11-10] MEDS ORDERED: PNEUMOCOCCAL ADMINISTRATION CHARGE ONE (08:00)
[2018-11-10] MEDS: SPIRONOLACTONE 25 MG TAB PO SCH (08:54)
[2018-11-10] MEDS: CHOLECALCIFEROL 1,000 UNITS TAB PO SCH (08:54)
[2018-11-10] MEDS: FERROUS SULFATE 325 MG TAB PO SCH ×2 (08:54→20:33)
[2018-11-10] MEDS: predniSONE 5 MG TAB PO SCH (08:54)
[2018-11-10] MEDS: CETIRIZINE HCL 10 MG TABLET PO SCH (08:54)
[2018-11-10] MEDS: PANTOprazole 40 MG TAB PO SCH ×2 (08:54→20:33)
[2018-11-10] MEDS: DONEPEZIL HCL 5 MG TAB PO SCH (08:55)
[2018-11-10] MEDS: ATORVASTATIN 20 MG TAB PO SCH (08:55)
[2018-11-10] MEDS: CLOPIDOGREL BISULFATE 75 MG TAB PO SCH (08:55)
[2018-11-10] MEDS: POTASSIUM CHLORIDE 20 MEQ TABCR PO SCH (08:55)
[2018-11-10] MEDS: AMIODARONE 200 MG TAB PO SCH (08:55)
[2018-11-10] MEDS: CYANOCOBALAMIN 500 MCG TABLET (VITAMIN B-12) PO SCH ×2 (08:55→20:32)
[2018-11-10] MEDS: METOPROLOL SUCC 25MG EXT REL TAB PO SCH ×2 (08:57→20:34)
[2018-11-10] MEDS ORDERED: PHYTONADIONE PED 1.25 MG, ORA-SWEET SYRUP 2.25 ML, ORA-PLUS SUSP VEHICLE 2.25 ML, BARCO... PO ONE (12:00)
--- NOTE | 2018-11-10 12:04 | Cardiology Progress Note ---
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 Difficult to determine if her presenting symptoms were due to angina. Mild, flat, elevation in troponin noted that has not increased. Continue conservative medication therapy. Volume status stable. Resume prior to hospital oral furosemide dose. (2) Coagulopathy: INR up to 6.7. No stigmata of bleeding. Hold Coumadin. Proceed with oral vitamin K solution 1.25 mg, discussed customized dose with pharmacy. The patient's EKG of course is concerning for progressive obstructive disease in her right coronary artery. She however has done well with conservative therapy having had a severe ischemic cardiomyopathy since 2011. Continue with observation and conservative therapy. She is felt to be at high risk for procedure, and I question the benefit versus the risk as she is feeling well now. Subjective Chief complaint: Follow-up shortness of breath Subjective: Patient comfortable, she is sitting up eating her noontime nail. She denies any shortness of breath with exertion such as walking to the bathroom. Review of Systems Review of Systems: All systems reviewed & are unremarkable except as noted in HPI & below Physical Exam Physical Exam: Temp Pulse Resp BP Pulse Ox 36.4 C L 53 L 20 109/66 92 11/10/18 11:45 11/10/18 11:45 11/10/18 11:45 11/10/18 11:45 11/10/18 11:45 Constitutional: WD/WN, vitals as above Respiratory: normal respiratory effort, lungs clear to auscultation Cardiovascular: RRR, no murmur, no edema Vessels: + JVD Extremities: no edema Gastrointestinal (Abdomen): normal bowel sounds, soft, nontender, no hepatosplenomegaly Neurologic: moves all extremities; no focal motor deficits Cognitive impairment, poor historian Results & Data Vital Signs (Past 12 Hours) Vital Signs Temp Pulse Resp BP BP Pulse Ox 11/10/18 11:45 36.4 C L 53 L 20 109/66 92 11/10/18 08:57 64 11/10/18 07:50 36.4 C L 48 L 18 127/75 90 11/10/18 03:21 36.6 C 103 H 20 114/67 92 Laboratory Results Cardiac Enzymes 11/09/18 11/09/18 11/10/18 Range/Units 12:55 19:00 00:36 AST 22 (15-37) U/L Troponin I 0.714 H* 0.632 H* 0.633 H* (0-0.045) ng/ml Coagulation 11/09/18 11/10/18 Range/Units 12:55 05:43 PT 56.3 H 60.0 H (9.0-12.0) Seconds APTT 47.6 H* (21.0-31.0) Seconds CBC 11/09/18 11/10/18 Range/Units 12:55 05:43 WBC 11.35 H 7.13 (4.8-10.8) K/uL RBC 4.16 L 3.84 L (4.2-5.4) M/uL Hgb 14.4 12.8 (12.0-16.0) g/dL Hct 42.2 39.0 (37-47) % Plt Count 179 158 (130-400) K/uL Neut # (Auto) 8.95 H (1.4-6.5) K/uL Lymph # (Auto) 1.23 (1.2-3.4) K/uL [place] # (Auto) 1.05 H (0.11-0.59) K/uL Eos # (Auto) 0.07 (0-0.5) K/uL Baso # (Auto) 0.02 (0-0.2) K/uL Comprehensive Metabolic Panel 11/09/18 11/10/18 Range/Units 12:55 05:43 Sodium 144 144 (136-145) mmol/L Potassium 4.1 3.7 (3.5-5.1) mmol/L Chloride 109 H 109 H (98-107) mmol/L Carbon Dioxide 28 29 (21-32) mmol/L BUN 21 H 23 H (7-18) mg/dl Creatinine 1.33 H 1.34 H (0.6-1.2) mg/dl Glucose 113 H 81 (70-99) mg/dl Calcium 8.5 7.9 L (8.5-10.1) mg/dl AST 22 (15-37) U/L ALT 20 (12-78) U/L Alkaline Phosphatase 52 (45-117) U/L Total Protein 6.9 (6.4-8.2) gm/dl Albumin 3.7 (3.4-5.0) gm/dl Intake and Output 11/09/18 11/10/18 11/10/18 22:59 06:59 14:59 Intake Total 50 / 50 Output Total 350 / 350 Balance 50 / -300 -350 / -300 Intake: Oral 50 / 50 Output: Urine 350 / 350 Other: Other Intake Source sips # Unmeasured Voids 3 1 Weight 75.8 kg 76.3 kg Diagnostic Findings EKG tracing performed this morning at 650 was limited due to artifact. A repeat tracing was therefore performed at 9:40 AM with findings of sinus bradycardia [address] elevation consistent with patient's history of LAD territory aneurysm, ST segment depression noted in the inferior leads of 0.5 to 1 mm, slightly more prominent than prior tracings, the previously noted lateral repolarization abnormality's have resolved. Echocardiogram performed yesterday 11/09/2018 revealed severe left ventricular systolic dysfunction, LVEF in the range of 15 to 20%. Medications Administered Current Inpatient Medications Acetaminophen (Tylenol) 650 mg PO Q4H PRN PRN Reason: Pain or Fever Stop: 12/09/18 18:41 Amiodarone HCl (Cordarone) 100 mg PO DAILY [facility] Stop: 12/10/18 08:59 Last Admin: 11/10/18 08:55 Dose: 100 mg Documented by: Atorvastatin Calcium (Lipitor) 20 mg PO DAILY [facility] Stop: 12/10/18 08:59 Last Admin: 11/10/18 08:55 Dose: 20 mg Documented by: Cetirizine HCl (Zyrtec) 10 mg PO DAILY [facility] Stop: 12/10/18 08:59 Last Admin: 11/10/18 08:54 Dose: 10 mg Documented by: Clopidogrel Bisulfate (Plavix) 75 mg PO DAILY [facility] Stop: 12/10/18 08:59 Last Admin: 11/10/18 08:55 Dose: 75 mg Documented by: Phytonadione 1.25 mg/ Sucrose 2.25 ml/ Microcrystalline Cellulose 2.25 ml/ BARCODE IDENTIFIER 1 ea 0 mg PO ONE ONE Stop: 11/10/18 12:01 Cyanocobalamin (Vitamin B-12) 1,000 mcg PO BID [facility] Stop: 12/09/18 20:59 Last Admin: 11/10/18 08:55 Dose: 1,000 mcg Documented by: Digoxin (Lanoxin) 0.125 mg PO MoWeFr@1600 [facility] Stop: 12/10/18 15:59 Donepezil HCl (Aricept) 5 mg PO DAILY [facility] Stop: 12/10/18 08:59 Last Admin: 11/10/18 08:55 Dose: 5 mg Documented by: Ferrous Sulfate (Feosol) 325 mg PO BID [facility] Stop: 12/09/18 20:59 Last Admin: 11/10/18 08:54 Dose: 325 mg Documented by: Metoprolol Succinate (Toprol Xl) 25 mg PO BID [facility] Stop: 12/09/18 20:59 Last Admin: 11/10/18 08:57 Dose: 25 mg Documented by: Mirtazapine (Remeron) 15 mg PO HS [facility] Stop: 12/09/18 20:59 Last Admin: 11/09/18 20:09 Dose: 15 mg Documented by: Nitroglycerin (Nitrostat) 0.4 mg SL Q5M PRN PRN Reason: Chest Pain Stop: 12/09/18 17:10 Nitroglycerin (Al-Dur 0.2mg/Hr) 1 patch TD DAILY PRN PRN Reason: Chest Pain Stop: 12/10/18 08:59 Ondansetron HCl (Zofran) 4 mg IV Q6H PRN PRN Reason: Nausea Stop: 12/09/18 18:41 Pantoprazole Sodium (Protonix) 40 mg PO BID [facility] Stop: 12/09/18 20:59 Last Admin: 11/10/18 08:54 Dose: 40 mg Documented by: Polyethylene Glycol (Miralax Powder Packet) 17 gm PO DAILY PRN PRN Reason: Constipation Stop: 12/09/18 18:41 Potassium Chloride (Klor-Con M20) 20 meq PO MoWeFr@0900 [facility] Stop: 12/10/18 08:59 Last Admin: 11/10/18 08:55 Dose: 20 meq Documented by: Potassium Chloride (Klor-Con M10) 10 meq PO SuTuThSa@0900 [facility] Stop: 12/11/18 08:59 Prednisone (Prednisone) 5 mg PO DAILY [facility] Stop: 12/10/18 08:59 Last Admin: 11/10/18 08:54 Dose: 5 mg Documented by: Spironolactone (Aldactone) 25 mg PO DAILY [facility] Stop: 12/10/18 08:59 Last Admin: 11/10/18 08:54 Dose: 25 mg Documented by: Vitamin D (Vitamin D3) 2,000 units PO DAILY [facility] Stop: 12/10/18 08:59 Last Admin: 11/10/18 08:54 Dose: 2,000 units Documented by:
[2018-11-10] MEDS ORDERED: FUROSEMIDE 20 MG TAB PO ONE (12:45)
--- NOTE | 2018-11-10 14:27 | Hospitalist Progress Note ---
Date of Service November 10, 2018 Assessment & Plan (1) Heart failure, systolic, with acute decompensation: This is an 83yo F with a PMH of chronic systolic heart failure 2/2 severe ischemic cardiomyopathy (EF: 15-25% in 2017), apical mural thrombus, history of AICD placement, CAD with LAD occlusion complicated by perforation, h/o vtach, h/o PEs on coumadin and other medical problems listed below who presents with shortness of breath x 3 days and was found to have acute decompensated heart failure. H/0 ischemic cardiomyopathy with EF: 15-25% on 2017 TTE And repeat echo is showing EF to be 15 to 20% Evaluated in ED by Dr. Araiza due to ST segment elevation noted in lead V2 consistent with her known history of an LAD territory aneurysm, and it is relatively unchanged compared to an outpatient EKG performed in the [facility] system dated 10/27/2016. Subtle inferior ST segment depression is noted in the inferior leads on the current EKG that is new compared to 2017. Appreciate cardiology input and recommendation We will continue current medications and Lasix (2) Ischemic dilated cardiomyopathy: This is an 83yo F with a PMH of chronic systolic heart failure 2/2 severe ischemic cardiomyopathy (EF: 15-25% in 2017), history of AICD placement, CAD with LAD occlusion complicated by perforation, h/o vtach, h/o PEs on coumadin, giant cell arteritis, CKD III and other medical problems listed below who presents with shortness of breath x 3 days and was found to have acute decompensated heart failure. As above Continue spironalactone, beta laya Strict I&Os, daily weights, low sodium diet Clinically better today (3) Non-ST elevation [place] (NSTEMI): Initial troponin 0.714 with vague chest pain that has since resolved Has chronic elevation of troponin and doubt any ACS during this admission In setting of known CAD, h/o ST segment elevation noted in lead V2 consistent with her known history of an LAD territory aneurysm that is relatively unchanged per outpatient EKG Evidence of new ST depression in inferior leads Trend troponin, monitor on telemetry-Mild elevation initially and has been improving slightly since admission No ACS (4) Elevated INR: INR of 6.3, no evidence of active bleeding -H/o multiple PEs in the past -Hold coumadin and monitor daily INR -INR slightly increased today at 6.7 -Received very small dose of vitamin K orally (5) Ventricular tachycardia: Continue amiodarone (6) Giant cell arteritis: Continue prednisone (7) CKD (chronic kidney disease), stage III: Cr 1.33 (baseline ~1.1), at upper limit of baseline -Monitor kidney function with daily BMP (8) ICD (implantable cardioverter-defibrillator) battery depletion: Placed in 2011 (9) Anemia of chronic disease: Hgb at baseline -Continue iron supplement Complaint history of chronic neck pain especially at the Seems to have pronounced prior to admission due to anxiety Local examination is unremarkable Movements of the neck not producing any pain Will observe (10) PVD (peripheral vascular disease): Continue plavix, statin, intolerant to aspirin DVT Ppx: INR supratherapeutic. Monitor and resume coumadin when appropriate Code status: DNR per discussion with POA/daughter Megan PCP: Alfred Dispo: Admited to PCU. Discharge planning ordered. Subjective 11/10 The patient was seen and examined in telemetry unit This is an 83yo F with a PMH of chronic systolic heart failure 2/2 severe ischemic cardiomyopathy (EF: 15-25% in 2017), history of AICD placement, CAD with LAD occlusion complicated by perforation, h/o vtach, h/o PEs on coumadin, giant cell arteritis, CKD III and other medical problems listed below who presents with shortness of breath x 3 days. She has been feeling a lot better and denies any symptoms of shortness of breath today 11/10 She mentioned to have some posterior Neck Pain for some time and denies any chest pain and/or bloating Review of Systems Review of Systems: All systems reviewed and are unremarkable except as noted Constitutional: + weakness Respiratory: no cough and no dyspnea Cardiovascular: no chest pain Gastrointestinal: no abdominal pain Physical Exam Physical Exam: Lying in bed comfortably Constitutional: well developed and + obese; no acute distress Eyes: PERRL, conjunctivae normal, anicteric sclerae ENMT: external ear and nose normal, oropharynx normal Neck: trachea midline, no thyromegaly Respiratory: normal respiratory effort Auscultation: + diminished lung sounds (At the bases with minimal crackles) Cardiovascular: Rate/Rhythm: regular rate and regular rhythm Vessels: + JVD Extremities: + edema (Trace edema bilaterally) Gastrointestinal (Abdomen): Inspection/Auscultation: abdomen normal to inspection, + abdomen distended (Minimally distended) and normal bowel sounds Percussion/Palpation: abdomen soft Musculoskeletal: No acute arthritis in any joint Neurologic: moves all extremities; no focal motor deficits Generally weak but no focal neuro deficit Lymphatic: no cervical or axillary lymphadenopathy Results & Data Vital Signs (Past 12 Hours) Vital Signs Temp Pulse Resp BP BP Pulse Ox 11/10/18 11:45 36.4 C L 53 L 20 109/66 92 11/10/18 08:57 64 11/10/18 07:50 36.4 C L 48 L 18 127/75 90 11/10/18 03:21 36.6 C 103 H 20 114/67 92 Laboratory Results Short CBC 11/10/18 Range/Units 05:43 WBC 7.13 (4.8-10.8) K/uL Hgb 12.8 (12.0-16.0) g/dL Hct 39.0 (37-47) % Plt Count 158 (130-400) K/uL BMP 11/10/18 05:43 Sodium 144 Potassium 3.7 Chloride 109 H Carbon Dioxide 29 BUN 23 H Creatinine 1.34 H Glucose 81 Calcium 7.9 L Cardiac Enzymes 11/09/18 11/10/18 Range/Units 19:00 00:36 Troponin I 0.632 H* 0.633 H* (0-0.045) ng/ml Medications Administered Current Inpatient Medications Acetaminophen (Tylenol) 650 mg PO Q4H PRN PRN Reason: Pain or Fever Stop: 12/09/18 18:41 Amiodarone HCl (Cordarone) 100 mg PO DAILY [facility] Stop: 12/10/18 08:59 Last Admin: 11/10/18 08:55 Dose: 100 mg Documented by: Atorvastatin Calcium (Lipitor) 20 mg PO DAILY [facility] Stop: 12/10/18 08:59 Last Admin: 11/10/18 08:55 Dose: 20 mg Documented by: Cetirizine HCl (Zyrtec) 10 mg PO DAILY [facility] Stop: 12/10/18 08:59 Last Admin: 11/10/18 08:54 Dose: 10 mg Documented by: Clopidogrel Bisulfate (Plavix) 75 mg PO DAILY [facility] Stop: 12/10/18 08:59 Last Admin: 11/10/18 08:55 Dose: 75 mg Documented by: Cyanocobalamin (Vitamin B-12) 1,000 mcg PO BID [facility] Stop: 12/09/18 20:59 Last Admin: 11/10/18 08:55 Dose: 1,000 mcg Documented by: Digoxin (Lanoxin) 0.125 mg PO MoWeFr@1600 [facility] Stop: 12/10/18 15:59 Donepezil HCl (Aricept) 5 mg PO DAILY [facility] Stop: 12/10/18 08:59 Last Admin: 11/10/18 08:55 Dose: 5 mg Documented by: Ferrous Sulfate (Feosol) 325 mg PO BID [facility] Stop: 12/09/18 20:59 Last Admin: 11/10/18 08:54 Dose: 325 mg Documented by: Furosemide (Lasix) 10 mg PO MOWEFR [facility] Stop: 12/12/18 08:59 Metoprolol Succinate (Toprol Xl) 25 mg PO BID [facility] Stop: 12/09/18 20:59 Last Admin: 11/10/18 08:57 Dose: 25 mg Documented by: Mirtazapine (Remeron) 15 mg PO HS [facility] Stop: 12/09/18 20:59 Last Admin: 11/09/18 20:09 Dose: 15 mg Documented by: Nitroglycerin (Nitrostat) 0.4 mg SL Q5M PRN PRN Reason: Chest Pain Stop: 12/09/18 17:10 Nitroglycerin (Al-Dur 0.2mg/Hr) 1 patch TD DAILY PRN PRN Reason: Chest Pain Stop: 12/10/18 08:59 Ondansetron HCl (Zofran) 4 mg IV Q6H PRN PRN Reason: Nausea Stop: 12/09/18 18:41 Pantoprazole Sodium (Protonix) 40 mg PO BID [facility] Stop: 12/09/18 20:59 Last Admin: 11/10/18 08:54 Dose: 40 mg Documented by: Polyethylene Glycol (Miralax Powder Packet) 17 gm PO DAILY PRN PRN Reason: Constipation Stop: 12/09/18 18:41 Potassium Chloride (Klor-Con M20) 20 meq PO MoWeFr@0900 [facility] Stop: 12/10/18 08:59 Last Admin: 11/10/18 08:55 Dose: 20 meq Documented by: Potassium Chloride (Klor-Con M10) 10 meq PO SuTuThSa@0900 [facility] Stop: 12/11/18 08:59 Prednisone (Prednisone) 5 mg PO DAILY [facility] Stop: 12/10/18 08:59 Last Admin: 11/10/18 08:54 Dose: 5 mg Documented by: Spironolactone (Aldactone) 25 mg PO DAILY [facility] Stop: 12/10/18 08:59 Last Admin: 11/10/18 08:54 Dose: 25 mg Documented by: Vitamin D (Vitamin D3) 2,000 units PO DAILY [facility] Stop: 12/10/18 08:59 Last Admin: 11/10/18 08:54 Dose: 2,000 units Documented by:
[2018-11-10] MEDS: DIGOXIN 0.125 MG TAB PO SCH (16:51)
[2018-11-10] MEDS: MIRTAZAPINE TAB 15 MG TAB PO SCH (20:34)
[2018-11-11 05:56] LABS: Hematocrit (blood only) 38.9 % (37-47); Hemoglobin 12.7 g/dL (12.0-16.0); Mean Corpuscular Hgb Conc 32.6 g/dL (32-36); Mean Corpuscular Volume 101.8 fL (80-100); Mean Platelet Volume 12.1 fL (7.4-10.4); Platelet Count 149 K/uL (130-400); RDW Coefficient of Variation 15.4 % (11.5-14.5); RDW Standard Deviation 57.6 fL (36.4-46.3); Red Blood Count 3.82 M/uL (4.2-5.4); White Blood Count 8.21 K/uL (4.8-10.8)
[2018-11-11 06:07] LABS: INR 2.2 (0.9-1.1); Prothrombin Time 21.6 Seconds (9.0-12.0)
[2018-11-11 06:29] LABS: BUN Creatinine Ratio 22.1 (10-20); Calcium 7.9 mg/dl (8.5-10.1); Creatinine Clr Calc Pharmacy 30.7 ml/min; Est GFR (African American) 42.3; Est GFR (Non-African American) 36.5; Magnesium 2.3 mg/dl (1.8-2.4); Phosphorus 3.4 mg/dl (2.5-4.9); Potassium 3.8 mmol/L (3.5-5.1)
[2018-11-11] MEDS: PANTOprazole 40 MG TAB PO SCH ×2 (08:43→21:12)
[2018-11-11] MEDS: METOPROLOL SUCC 25MG EXT REL TAB PO SCH ×2 (08:43→21:11)
[2018-11-11] MEDS: CYANOCOBALAMIN 500 MCG TABLET (VITAMIN B-12) PO SCH ×2 (08:43→21:15)
[2018-11-11] MEDS: FERROUS SULFATE 325 MG TAB PO SCH ×2 (08:43→21:14)
[2018-11-11] MEDS: DONEPEZIL HCL 5 MG TAB PO SCH (08:43)
[2018-11-11] MEDS: predniSONE 5 MG TAB PO SCH (08:43)
[2018-11-11] MEDS: CETIRIZINE HCL 10 MG TABLET PO SCH (08:44)
[2018-11-11] MEDS: AMIODARONE 200 MG TAB PO SCH (08:44)
[2018-11-11] MEDS: SPIRONOLACTONE 25 MG TAB PO SCH (08:44)
[2018-11-11] MEDS: CLOPIDOGREL BISULFATE 75 MG TAB PO SCH (08:46)
[2018-11-11] MEDS: ATORVASTATIN 20 MG TAB PO SCH (08:46)
[2018-11-11] MEDS: CHOLECALCIFEROL 1,000 UNITS TAB PO SCH (08:46)
[2018-11-11] MEDS ORDERED: POTASSIUM CHLORIDE 10 MEQ TABCR PO SCH (09:00)
--- NOTE | 2018-11-11 10:24 | Cardiology Progress Note ---
Date of Service November 11, 2018 Assessment & Plan (1) Heart failure, systolic, with acute decompensation: (2) Ischemic dilated cardiomyopathy: (3) Chronic systolic heart failure: (4) Non-ST elevation [place] (NSTEMI): (5) Chest pain: (6) CAD (coronary artery disease): (7) Elevated troponin: (8) CKD (chronic kidney disease), stage III: Same medications Interrogate device Likely back to [place] this afternoon Supervising Physician Co-Signing Physician Notes Supervising Physician Attestation: I have personally performed a history and physical examination on the patient. I agree with the physician education administrative assistant's findings and plan as documented with the following additions. Subjective: Patient without any complaint at present. She continues to have an occasional throat discomfort when breathing through her mouth, but it does not sound like angina. Telemetry reveals stable sinus rhythm. Exam: Lungs clear, no edema Data: Automated device check performed with the assistance of ChiScan, no arrhythm ias noted. Assessment and Plan: Stable severe ischemic cardiomyopathy Coagulopathy It does not appear her presentation is due to a new myocardial infarction and I think ongoing conservative therapy with the same medications that have served her well for years is appropriate. She is stable from our standpoint for transfer back to [place]. Coagulopathy was resolved having received 1.25 mg of oral vitamin K on 11/10/2018. Will administer coumadin 1.25 mg now. High INR likely due to recent poor oral intake. Her daughter tells me the pt has had recent emotional distress. Her daughter sold the pt's home within the last week. Her appetite has been poor and is better in the hospital. Trevor Araiza, DO Subjective Patient seen and examined. Chart, medications, telemetry reviewed. No complaints noted by patient. She denies chest pain, palpitations, shortness of breath. Continuous telemetry monitoring reveals sinus rhythm ranging from the 50s to mid 60s. Review of Systems Review of Systems: All systems reviewed & are unremarkable except as noted in HPI & below and Unobtainable due to cognitive status Physical Exam Physical Exam: General: A&Ox3. NAD. HEENT: Normocephalic. Atraumatic. PER. Conjunctiva pink, sclera with mild pallor. Neck: Normal JVD. No carotid bruits. Heart: RRR, 60 bpm. Grade II/ systolic ejection murmur at the LLSB. Soft diastolic murmur heard best at the left mid sternal border. PMI is displaced laterally. Lungs: Left basilar dry crackles. Otherwise clear. No wheeze. No rhonchi. Abdomen: +BS. Soft. Nontender. No masses or organomegaly. Extremities: Trace edema. Stasis changes. Chronic varicosities. No clubbing. No cyanosis. Pulses: radial=2/4, posterior tibial=1/4. Results & Data Vital Signs (Past 12 Hours) Vital Signs Temp Pulse Pulse Resp BP Pulse Ox 11/11/18 08:00 48 L 11/11/18 07:26 36.4 C L 52 L 17 104/68 94 11/11/18 03:25 36.8 C 49 L 17 104/64 93 11/10/18 23:41 37.0 C 53 L 18 114/71 92 Laboratory Results - last 24 hr 11/11/18 11/11/18 11/11/18 05:36 05:36 05:36 WBC 8.21 RBC 3.82 L Hgb 12.7 Hct 38.9 MCV 101.8 H MCH 33.2 MCHC 32.6 RDW Std Deviation 57.6 H RDW Coeff of [place]ier 15.4 H Plt Count 149 MPV 12.1 H PT 21.6 H INR 2.2 H Sodium 142 Potassium 3.8 Chloride 108 H Carbon Dioxide 28 Anion Gap 6.0 BUN 30 H Creatinine 1.35 H Est Cr Clr Drug Dosing 30.7 Est GFR ( Amer) 42.3 Est GFR (Non-Af Amer) 36.5 BUN/Creatinine Ratio 22.1 H Glucose 95 Calcium 7.9 L Phosphorus 3.4 Magnesium 2.3 (1) Chest pain Chest pain type: unspecified Qualified Code(s): R07.9 - Chest pain, unspecified
--- NOTE | 2018-11-11 16:20 | Hospitalist Progress Note ---
Date of Service November 11, 2018 Assessment & Plan (1) Heart failure, systolic, with acute decompensation: This is an 83yo F with a PMH of chronic systolic heart failure 2/2 severe ischemic cardiomyopathy (EF: 15-25% in 2017), apical mural thrombus, history of AICD placement, CAD with LAD occlusion complicated by perforation, h/o vtach, h/o PEs on coumadin and other medical problems listed below who presents with shortness of breath x 3 days and was found to have acute decompensated heart failure. H/0 ischemic cardiomyopathy with EF: 15-25% on 2017 TTE And repeat echo is showing EF to be 15 to 20% Evaluated in ED by Dr. Araiza due to ST segment elevation noted in lead V2 consistent with her known history of an LAD territory aneurysm, and it is relatively unchanged compared to an outpatient EKG performed in the [facility] system dated 10/27/2016. Subtle inferior ST segment depression is noted in the inferior leads on the current EKG that is new compared to 2017. Appreciate cardiology input and recommendation We will continue current medications and Sis Appreciate cardiology input and recommendation the patient can be discharged this afternoon She will have check for her pacemaker before she goes (2) Ischemic dilated cardiomyopathy: This is an 83yo F with a PMH of chronic systolic heart failure 2/2 severe ischemic cardiomyopathy (EF: 15-25% in 2017), history of AICD placement, CAD with LAD occlusion complicated by perforation, h/o vtach, h/o PEs on coumadin, giant cell arteritis, CKD III and other medical problems listed below who presents with shortness of breath x 3 days and was found to have acute decompensated heart failure. As above Continue spironalactone, beta laya Strict I&Os, daily weights, low sodium diet Clinically better today and denies any symptoms of shortness of breath (3) Non-ST elevation SC (NSTEMI): Initial troponin 0.714 with vague chest pain that has since resolved Has chronic elevation of troponin and doubt any ACS during this admission In setting of known CAD, h/o ST segment elevation noted in lead V2 consistent with her known history of an LAD territory aneurysm that is relatively unchanged per outpatient EKG Evidence of new ST depression in inferior leads Trend troponin, monitor on telemetry-Mild elevation initially and has been improving slightly since admission No ACS (4) Elevated INR: INR of 6.3, no evidence of active bleeding -H/o multiple PEs in the past -Hold coumadin and monitor daily INR -INR slightly increased today at 6.7 -Received very small dose of vitamin K orally -INR is therapeutic today (5) Ventricular tachycardia: Continue amiodarone (6) Giant cell arteritis: Continue prednisone (7) CKD (chronic kidney disease), stage III: Cr 1.33 (baseline ~1.1), at upper limit of baseline -Monitor kidney function with daily BMP (8) ICD (implantable cardioverter-defibrillator) battery depletion: Placed in 2011 Pacemaker interrogation will be done before discharge (9) Anemia of chronic disease: Hgb at baseline -Continue iron supplement Complaint history of chronic neck pain especially at the Seems to have pronounced prior to admission due to anxiety Local examination is unremarkable Movements of the neck not producing any pain Will observe (10) PVD (peripheral vascular disease): Continue plavix, statin, intolerant to aspirin DVT Ppx: INR supratherapeutic. Monitor and resume coumadin when appropriate Code status: DNR per discussion with POA/daughter Megan PCP: Alfred Dispo: Admited to PCU. Discharge planning ordered. We will get PT and OT evaluation Probable discharge this afternoon Subjective 11/10 The patient was seen and examined in telemetry unit This is an 83yo F with a PMH of chronic systolic heart failure 2/2 severe ischem ic cardiomyopathy (EF: 15-25% in 2017), history of AICD placement, CAD with LAD occlusion complicated by perforation, h/o vtach, h/o PEs on coumadin, giant cell arteritis, CKD III and other medical problems listed below who presents with shortness of breath x 3 days. She has been feeling a lot better and denies any symptoms of shortness of breath today 11/10 She mentioned to have some posterior Neck Pain for some time and denies any chest pain and/or bloating 11/11 The patient was seen and examined in telemetry unit She has been feeling a lot better Complaint history of some back pain but otherwise no shortness of breath and/or palpitation Her neck pain is much improved Review of Systems Review of Systems: All systems reviewed and are unremarkable except as noted Constitutional: + weakness Physical Exam Physical Exam: No apparent distress at rest Constitutional: well developed and + obese; no acute distress Eyes: PERRL, conjunctivae normal, anicteric sclerae ENMT: external ear and nose normal, oropharynx normal Neck: trachea midline, no thyromegaly Respiratory: normal respiratory effort Auscultation: + diminished lung sounds (At the bases with minimal crackles) Cardiovascular: RRR, no murmur, no edema Rate/Rhythm: regular rate and regular rhythm Vessels: + JVD Extremities: + edema (Trace edema bilaterally) Gastrointestinal (Abdomen): Inspection/Auscultation: abdomen normal to inspection, + abdomen distended (Minimally distended) and normal bowel sounds Percussion/Palpation: abdomen soft Musculoskeletal: No acute arthritis involving any joint Neurologic: moves all extremities; no focal motor deficits Lymphatic: no cervical or axillary lymphadenopathy Results & Data Vital Signs (Past 12 Hours) Vital Signs Temp Pulse Pulse Pulse Resp BP BP 11/11/18 15:39 36.4 C L 63 20 126/82 11/11/18 14:58 61 11/11/18 11:09 36.5 C 58 L 20 118/77 11/11/18 08:40 62 11/11/18 08:00 48 L 11/11/18 07:26 36.4 C L 52 L 17 104/68 Pulse Ox 11/11/18 15:39 95 11/11/18 14:58 11/11/18 11:09 92 11/11/18 08:40 11/11/18 08:00 11/11/18 07:26 94 Laboratory Results Short CBC 11/11/18 Range/Units 05:36 WBC 8.21 (4.8-10.8) K/uL Hgb 12.7 (12.0-16.0) g/dL Hct 38.9 (37-47) % Plt Count 149 (130-400) K/uL BMP 11/11/18 05:36 Sodium 142 Potassium 3.8 Chloride 108 H Carbon Dioxide 28 BUN 30 H Creatinine 1.35 H Glucose 95 Calcium 7.9 L Medications Administered Current Inpatient Medications Acetaminophen (Tylenol) 650 mg PO Q4H PRN PRN Reason: Pain or Fever Stop: 12/09/18 18:41 Amiodarone HCl (Cordarone) 100 mg PO DAILY [facility] Stop: 12/10/18 08:59 Last Admin: 11/11/18 08:44 Dose: 100 mg Documented by: Atorvastatin Calcium (Lipitor) 20 mg PO DAILY [facility] Stop: 12/10/18 08:59 Last Admin: 11/11/18 08:46 Dose: 20 mg Documented by: Cetirizine HCl (Zyrtec) 10 mg PO DAILY [facility] Stop: 12/10/18 08:59 Last Admin: 11/11/18 08:44 Dose: 10 mg Documented by: Clopidogrel Bisulfate (Plavix) 75 mg PO DAILY [facility] Stop: 12/10/18 08:59 Last Admin: 11/11/18 08:46 Dose: 75 mg Documented by: Cyanocobalamin (Vitamin B-12) 1,000 mcg PO BID [facility] Stop: 12/09/18 20:59 Last Admin: 11/11/18 08:43 Dose: 1,000 mcg Documented by: Digoxin (Lanoxin) 0.125 mg PO MoWeFr@1600 [facility] Stop: 12/10/18 15:59 Last Admin: 11/10/18 16:51 Dose: Not Given Documented by: Donepezil HCl (Aricept) 5 mg PO DAILY [facility] Stop: 12/10/18 08:59 Last Admin: 11/11/18 08:43 Dose: 5 mg Documented by: Ferrous Sulfate (Feosol) 325 mg PO BID [facility] Stop: 12/09/18 20:59 Last Admin: 11/11/18 08:43 Dose: 325 mg Documented by: Furosemide (Lasix) 10 mg PO MOWEFR [facility] Stop: 12/12/18 08:59 Metoprolol Succinate (Toprol Xl) 25 mg PO BID [facility] Stop: 12/09/18 20:59 Last Admin: 11/11/18 08:43 Dose: 25 mg Documented by: Mirtazapine (Remeron) 15 mg PO HS [facility] Stop: 12/09/18 20:59 Last Admin: 11/10/18 20:34 Dose: 15 mg Documented by: Nitroglycerin (Nitrostat) 0.4 mg SL Q5M PRN PRN Reason: Chest Pain Stop: 12/09/18 17:10 Nitroglycerin (Al-Dur 0.2mg/Hr) 1 patch TD DAILY PRN PRN Reason: Chest Pain Stop: 12/10/18 08:59 Ondansetron HCl (Zofran) 4 mg IV Q6H PRN PRN Reason: Nausea Stop: 12/09/18 18:41 Pantoprazole Sodium (Protonix) 40 mg PO BID [facility] Stop: 12/09/18 20:59 Last Admin: 11/11/18 08:43 Dose: 40 mg Documented by: Polyethylene Glycol (Miralax Powder Packet) 17 gm PO DAILY PRN PRN Reason: Constipation Stop: 12/09/18 18:41 Potassium Chloride (Klor-Con M20) 20 meq PO MoWeFr@0900 [facility] Stop: 12/10/18 08:59 Last Admin: 11/10/18 08:55 Dose: 20 meq Documented by: Potassium Chloride (Klor-Con M10) 10 meq PO SuTuThSa@0900 [facility] Stop: 12/11/18 08:59 Last Admin: 11/11/18 08:45 Dose: 10 meq Documented by: Prednisone (Prednisone) 5 mg PO DAILY [facility] Stop: 12/10/18 08:59 Last Admin: 11/11/18 08:43 Dose: 5 mg Documented by: Spironolactone (Aldactone) 25 mg PO DAILY [facility] Stop: 12/10/18 08:59 Last Admin: 11/11/18 08:44 Dose: 25 mg Documented by: Vitamin D (Vitamin D3) 2,000 units PO DAILY [facility] Stop: 12/10/18 08:59 Last Admin: 11/11/18 08:46 Dose: 2,000 units Documented by:
[2018-11-11] MEDS ORDERED: WARFARIN SOD 1.25 MG TAB PO STA (16:35)
[2018-11-11] MEDS: MIRTAZAPINE TAB 15 MG TAB PO SCH (21:13)
[2018-11-12 05:50] LABS: INR 1.5 (0.9-1.1); Prothrombin Time 14.7 Seconds (9.0-12.0)
[2018-11-12] MEDS: CYANOCOBALAMIN 500 MCG TABLET (VITAMIN B-12) PO SCH (07:56)
[2018-11-12] MEDS: FERROUS SULFATE 325 MG TAB PO SCH (07:57)
[2018-11-12] MEDS: CHOLECALCIFEROL 1,000 UNITS TAB PO SCH (07:57)
[2018-11-12] MEDS: ATORVASTATIN 20 MG TAB PO SCH (07:57)
[2018-11-12] MEDS: PANTOprazole 40 MG TAB PO SCH (07:57)
[2018-11-12] MEDS: predniSONE 5 MG TAB PO SCH (07:57)
[2018-11-12] MEDS: CETIRIZINE HCL 10 MG TABLET PO SCH (07:58)
[2018-11-12] MEDS: METOPROLOL SUCC 25MG EXT REL TAB PO SCH (07:58)
[2018-11-12] MEDS: CLOPIDOGREL BISULFATE 75 MG TAB PO SCH (07:58)
[2018-11-12] MEDS: DONEPEZIL HCL 5 MG TAB PO SCH (07:58)
[2018-11-12] MEDS: POTASSIUM CHLORIDE 20 MEQ TABCR PO SCH (07:59)
[2018-11-12] MEDS: SPIRONOLACTONE 25 MG TAB PO SCH (07:59)
[2018-11-12] MEDS: AMIODARONE 200 MG TAB PO SCH (07:59)
[2018-11-12] MEDS: ACETAMINOPHEN 325 MG TAB PO PRN ×2 (08:05→17:01)
[2018-11-12] MEDS ORDERED: FUROSEMIDE 20 MG TAB PO SCH (09:00)
--- NOTE | 2018-11-12 16:03 | Hospitalist Progress Note ---
Date of Service November 12, 2018 Assessment & Plan (1) Heart failure, systolic, with acute decompensation: This is an 83yo F with a PMH of chronic systolic heart failure 2/2 severe ischemic cardiomyopathy (EF: 15-25% in 2017), apical mural thrombus, history of AICD placement, CAD with LAD occlusion complicated by perforation, h/o vtach, h/o PEs on coumadin and other medical problems listed below who presents with shortness of breath x 3 days and was found to have acute decompensated heart failure. H/0 ischemic cardiomyopathy with EF: 15-25% on 2017 TTE And repeat echo is showing EF to be 15 to 20% Evaluated in ED by Dr. Araiza due to ST segment elevation noted in lead V2 consistent with her known history of an LAD territory aneurysm, and it is relatively unchanged compared to an outpatient EKG performed in the [facility] system dated 10/27/2016. Subtle inferior ST segment depression is noted in the inferior leads on the current EKG that is new compared to 2017. Appreciate cardiology input and recommendation We will continue current medications and Lasix Appreciate cardiology input and recommendation the patient can be discharged this afternoon She will have check for her pacemaker before she goes Discussed with the artificial glass eye maker Remains asymptomatic She will be discharged this afternoon Discomfort in center chest Abdomen swallowing mouth breathing for airway No significant abnormality found Has been swallowing well Evaluated by speech therapist and nothing significant identified Will ask the primary care physician to have a GI appointment as an outpatient And advised to take Tums as needed (2) Ischemic dilated cardiomyopathy: This is an 83yo F with a PMH of chronic systolic heart failure 2/2 severe ischemic cardiomyopathy (EF: 15-25% in 2017), history of AICD placement, CAD with LAD occlusion complicated by perforation, h/o vtach, h/o PEs on coumadin, giant cell arteritis, CKD III and other medical problems listed below who presents with shortness of breath x 3 days and was found to have acute decompensated heart failure. As above Continue spironalactone, beta laya Strict I&Os, daily weights, low sodium diet Clinically better today and denies any symptoms of shortness of breath (3) Non-ST elevation ME (NSTEMI): Initial troponin 0.714 with vague chest pain that has since resolved Has chronic elevation of troponin and doubt any ACS during this admission In setting of known CAD, h/o ST segment elevation noted in lead V2 consistent with her known history of an LAD territory aneurysm that is relatively unchanged per outpatient EKG Evidence of new ST depression in inferior leads Trend troponin, monitor on telemetry-Mild elevation initially and has been improving slightly since admission No ACS (4) Elevated INR: INR of 6.3, no evidence of active bleeding -H/o multiple PEs in the past -Hold coumadin and monitor daily INR -INR slightly increased today at 6.7 -Received very small dose of vitamin K orally -INR is therapeutic today (5) Ventricular tachycardia: Continue amiodarone (6) Giant cell arteritis: Continue prednisone (7) CKD (chronic kidney disease), stage III: Cr 1.33 (baseline ~1.1), at upper limit of baseline -Monitor kidney function with daily BMP (8) ICD (implantable cardioverter-defibrillator) battery depletion: Placed in 2011 Pacemaker interrogation will be done before discharge (9) Anemia of chronic disease: Hgb at baseline -Continue iron supplement Complaint history of chronic neck pain especially at the Seems to have pronounced prior to admission due to anxiety Local examination is unremarkable Movements of the neck not producing any pain Will observe (10) PVD (peripheral vascular disease): Continue plavix, statin, intolerant to aspirin DVT Ppx: INR supratherapeutic. Monitor and resume coumadin when appropriate Code status: DNR per discussion with POA/daughter Megan PCP: Alfred Dispo: Admited to PCU. Discharge planning ordered. We will get PT and OT evaluation Discussed with the daughters and the patient will be discharged to [facility] this afternoon Subjective 11/10 The patient was seen and examined in telemetry unit This is an 83yo F with a PMH of chronic systolic heart failure 2/2 severe ischemic cardiomyopathy (EF: 15-25% in 2017), history of AICD placement, CAD with LAD occlusion complicated by perforation, h/o vtach, h/o PEs on coumadin, giant cell arteritis, CKD III and other medical problems listed below who presents with shortness of breath x 3 days. She has been feeling a lot better and denies any symptoms of shortness of breath today 11/10 She mentioned to have some posterior Neck Pain for some time and denies any chest pain and/or bloating 11/11 The patient was seen and examined in telemetry unit She has been feeling a lot better Complaint history of some back pain but otherwise no shortness of breath and/or palpitation Her neck pain is much improved 11/12 The patient was seen and examined in medical telemetry unit She has been complaining of some throat/esophageal discomfort especially after lying down and breathing through the mouth Examined locally and no significant relation found and she was evaluated by speech therapist and recommendation was to see a GI specialist with an outpatient Likely secondary to esophageal reflux He denies any other significant symptoms She will be going to evaluate this afternoon Review of Systems Review of Systems: All systems reviewed and are unremarkable except as noted Constitutional: + weakness Physical Exam Physical Exam: Lying in bed comfortably Constitutional: well developed and + obese; no acute distress and not ill appearing Eyes: PERRL, conjunctivae normal, anicteric sclerae ENMT: external ear and nose normal, oropharynx normal Neck: trachea midline, no thyromegaly Respiratory: normal respiratory effort; no respiratory distress Auscultation: + diminished lung sounds (At the bases with minimal crackles) Cardiovascular: Rate/Rhythm: regular rate and regular rhythm Heart Sounds: + murmur Vessels: + JVD Extremities: + edema (Trace edema bilaterally) Gastrointestinal (Abdomen): normal bowel sounds, soft, nontender, no hepato splenomegaly Inspection/Auscultation: abdomen normal to inspection, + abdomen distended (Minimally distended) and normal bowel sounds Percussion/Palpation: abdomen soft Musculoskeletal: No acute arthritis in any of the joints Neurologic: moves all extremities; no focal motor deficits Alert, awake and oriented x3 Lymphatic: no cervical or axillary lymphadenopathy Results & Data Vital Signs (Past 12 Hours) Vital Signs Temp Pulse Resp BP Pulse Ox 11/12/18 15:55 36.4 C L 62 20 106/64 92 11/12/18 08:14 36.9 C 61 19 109/64 93 Medications Administered Current Inpatient Medications Acetaminophen (Tylenol) 650 mg PO Q4H PRN PRN Reason: Pain or Fever Stop: 12/09/18 18:41 Last Admin: 11/12/18 08:05 Dose: 650 mg Documented by: Amiodarone HCl (Cordarone) 100 mg PO DAILY [facility] Stop: 12/10/18 08:59 Last Admin: 11/12/18 07:59 Dose: 100 mg Documented by: Atorvastatin Calcium (Lipitor) 20 mg PO DAILY [facility] Stop: 12/10/18 08:59 Last Admin: 11/12/18 07:57 Dose: 20 mg Documented by: Cetirizine HCl (Zyrtec) 10 mg PO DAILY [facility] Stop: 12/10/18 08:59 Last Admin: 11/12/18 07:58 Dose: 10 mg Documented by: Clopidogrel Bisulfate (Plavix) 75 mg PO DAILY [facility] Stop: 12/10/18 08:59 Last Admin: 11/12/18 07:58 Dose: 75 mg Documented by: Cyanocobalamin (Vitamin B-12) 1,000 mcg PO BID [facility] Stop: 12/09/18 20:59 Last Admin: 11/12/18 07:56 Dose: 1,000 mcg Documented by: Digoxin (Lanoxin) 0.125 mg PO MoWeFr@1600 [facility] Stop: 12/10/18 15:59 Last Admin: 11/10/18 16:51 Dose: Not Given Documented by: Donepezil HCl (Aricept) 5 mg PO DAILY [facility] Stop: 12/10/18 08:59 Last Admin: 11/12/18 07:58 Dose: 5 mg Documented by: Ferrous Sulfate (Feosol) 325 mg PO BID [facility] Stop: 12/09/18 20:59 Last Admin: 11/12/18 07:57 Dose: 325 mg Documented by: Furosemide (Lasix) 10 mg PO MOWEFR [facility] Stop: 12/12/18 08:59 Last Admin: 11/12/18 07:59 Dose: 10 mg Documented by: Metoprolol Succinate (Toprol Xl) 25 mg PO BID [facility] Stop: 12/09/18 20:59 Last Admin: 11/12/18 07:58 Dose: 25 mg Documented by: Mirtazapine (Remeron) 15 mg PO [facility] Stop: 12/09/18 20:59 Last Admin: 11/11/18 21:13 Dose: 15 mg Documented by: Nitroglycerin (Nitrostat) 0.4 mg SL Q5M PRN PRN Reason: Chest Pain Stop: 12/09/18 17:10 Nitroglycerin (Al-Dur 0.2mg/Hr) 1 patch TD DAILY PRN PRN Reason: Chest Pain Stop: 12/10/18 08:59 Ondansetron HCl (Zofran) 4 mg IV Q6H PRN PRN Reason: Nausea Stop: 12/09/18 18:41 Pantoprazole Sodium (Protonix) 40 mg PO BID [facility] Stop: 12/09/18 20:59 Last Admin: 11/12/18 07:57 Dose: 40 mg Documented by: Polyethylene Glycol (Miralax Powder Packet) 17 gm PO DAILY PRN PRN Reason: Constipation Stop: 12/09/18 18:41 Potassium Chloride (Klor-Con M20) 20 meq PO MoWeFr@0900 [facility] Stop: 12/10/18 08:59 Last Admin: 11/12/18 07:59 Dose: 20 meq Documented by: Potassium Chloride (Klor-Con M10) 10 meq PO SuTuThSa@0900 [facility] Stop: 12/11/18 08:59 Last Admin: 11/11/18 08:45 Dose: 10 meq Documented by: Prednisone (Prednisone) 5 mg PO DAILY [facility] Stop: 12/10/18 08:59 Last Admin: 11/12/18 07:57 Dose: 5 mg Documented by: Spironolactone (Aldactone) 25 mg PO DAILY [facility] Stop: 12/10/18 08:59 Last Admin: 11/12/18 07:59 Dose: 25 mg Documented by: Vitamin D (Vitamin D3) 2,000 units PO DAILY [facility] Stop: 12/10/18 08:59 Last Admin: 11/12/18 07:57 Dose: 2,000 units Documented by:
[2018-11-12] MEDS: DIGOXIN 0.125 MG TAB PO SCH (16:57)
--- NOTE | 2018-11-13 07:54 | Discharge Summary ---
Date of Service November 13, 2018 Admission HPI Per Admitting Provider This is an 83yo F with a PMH of chronic systolic heart failure 2/2 severe ischemic cardiomyopathy (EF: 15-25% in 2017), history of AICD placement, CAD with LAD occlusion complicated by perforation, h/o vtach, h/o PEs on coumadin, giant cell arteritis, CKD III and other medical problems listed below who presents with shortness of breath x 3 days. Patient has dementia and is a poor historian. History is obtained by daughter, Megan, at bedside. For the past few days, patient has felt more short of breath has been unable to lie flat. Also complains of central chest discomfort if she takes a deep breath through her mouth but does not though she breathes through her nose. Is currently chest pain-free in the ED. Patient endorses weight gain, but daughter states that facility notes recent weight loss. No lower extremity edema. Denies any fever, chills, lightheadedness, visual changes, headache, palpitations, nausea, vomiting, abdominal pain, dysuria, hematuria, diarrhea, constipation, melena or hematochezia. Is on Coumadin for history of multiple PEs and INR supratherapeutic today at 6.3. Denies any bleeding but states that stool has been a darker brown/black color for the past year. Patient is hemodynamically stable. Troponin elevation 0.714 initially. Follows with [facility] cardiology for complex history. Megan (POIbeth) at bedside confirms that patient is DNR. CABG has been discussed in the past but family not interested in coronary intervention at this time. Has history of urticaria with aspirin. Admission Exam Per Admitting Provider Physical Exam: General Appearance: WD/WN, no apparent distress, appears chronically ill Head: normocephalic, atraumatic Eyes: normal inspection, PERRL, EOMI ENT: hearing grossly normal, pharynx normal (moist mucous membranes) Neck: supple, no adenopathy Respiratory/Chest: lungs clear to auscultation. No wheezes, rales or rhonci. No respiratory distress or accessory muscle use Cardiovascular: + JVD, regular rate & rhythm, no murmur appreciated, normal peripheral pulses, no BLE edema Abdomen/GI: normal bowel sounds, soft, mild distention, non-tender to palpation Extremities/Musculoskelatal: normal inspection, no calf tenderness, normal capillary refill Neurologic/Psych: alert & oriented x 3 but situational confusion, poor historian, normal mood/affect Skin: normal color, warm/dry. Small ecchymosis on bilateral arms legs Principal Diagnosis Acute decompensated systolic heart failure, ischemic dilated cardiomyopathy, polymyalgia rheumatica, PVD, history of bilateral pulmonary embolism and atrial thrombus Discharge Exam Constitutional WD/WN, vitals as above well developed and + obese; no acute distress and not ill appearing Eyes PERRL, conjunctivae normal, anicteric sclerae ENMT external ear and nose normal, oropharynx normal Neck trachea midline, no thyromegaly Respiratory normal respiratory effort, lungs clear to auscultation normal respiratory effort; no respiratory distress Auscultation: + diminished lung sounds (At the bases with minimal crackles) Cardiovascular RRR, no murmur, no edema Rate/Rhythm: regular rate and regular rhythm Heart Sounds: + murmur Vessels: + JVD Extremities: + edema (Trace edema bilaterally) Gastrointestinal (Abdomen) normal bowel sounds, soft, nontender, no hepatosplenomegaly Inspection/Auscultation: abdomen normal to inspection, + abdomen distended (Minimally distended) and normal bowel sounds Percussion/Palpation: abdomen soft Neurologic moves all extremities; no focal motor deficits Lymphatic no cervical or axillary lymphadenopathy Discharge Data Allergies Allergy/AdvReac Type Severity Reaction Status Date / Time mivacurium Allergy Severe ANAPHYLAXIS Verified 11/09/18 14:27 NSAIDS (Non-Steroidal Allergy Severe HIVES Verified 11/09/18 14:27 Anti-Inflamma aspirin Allergy Unknown hives Verified 11/09/18 14:27 erythromycin base Allergy Unknown . Verified 11/09/18 14:27 gabapentin Allergy Unknown myoclonus Verified 11/09/18 14:27 Consultations 11/09/18 14:07 ED Decision to Admit Stat 11/09/18 18:42 Consult Cardiology Routine Consult Case Management - Discharge Planning Routine Hospital Course (1) Heart failure, systolic, with acute decompensation: This is an 83yo F with a PMH of chronic systolic heart failure 2/2 severe ischemic cardiomyopathy (EF: 15-25% in 2017), apical mural thrombus, history of AICD placement, CAD with LAD occlusion complicated by perforation, h/o vtach, h/o PEs on coumadin and other medical problems listed below who presents with shortness of breath x 3 days and was found to have acute decompensated heart failure. H/0 ischemic cardiomyopathy with EF: 15-25% on 2017 TTE And repeat echo is showing EF to be 15 to 20% Evaluated in ED by Dr. Araiza due to ST segment elevation noted in lead V2 consistent with her known history of an LAD territory aneurysm, and it is relatively unchanged compared to an outpatient EKG performed in the [facility] system dated 10/27/2016. Subtle inferior ST segment depression is noted in the inferior leads on the current EKG that is new compared to 2017. Appreciate cardiology input and recommendation We will continue current medications and Lasix Appreciate cardiology input and recommendation the patient can be discharged this afternoon She will have check for her pacemaker before she goes Discussed with the fitness trainer Remains asymptomatic She will be discharged this afternoon Discomfort in center chest Abdomen swallowing mouth breathing for airway No significant abnormality found Has been swallowing well Evaluated by speech therapist and nothing significant identified Will ask the primary care physician to have a GI appointment as an outpatient And advised to take Tums as needed (2) Ischemic dilated cardiomyopathy: This is an 83yo F with a PMH of chronic systolic heart failure 2/2 severe ischemic cardiomyopathy (EF: 15-25% in 2017), history of AICD placement, CAD with LAD occlusion complicated by perforation, h/o vtach, h/o PEs on coumadin, giant cell arteritis, CKD III and other medical problems listed below who presents with shortness of breath x 3 days and was found to have acute decompensated heart failure. As above Continue spironalactone, beta laya Strict I&Os, daily weights, low sodium diet Clinically better today and denies any symptoms of shortness of breath (3) Non-ST elevation NV (NSTEMI): Initial troponin 0.714 with vague chest pain that has since resolved Has chronic elevation of troponin and doubt any ACS during this admission In setting of known CAD, h/o ST segment elevation noted in lead V2 consistent with her known history of an LAD territory aneurysm that is relatively unchanged per outpatient EKG Evidence of new ST depression in inferior leads Trend troponin, monitor on telemetry-Mild elevation initially and has been improving slightly since admission No ACS (4) Elevated INR: INR of 6.3, no evidence of active bleeding -H/o multiple PEs in the past -Hold coumadin and monitor daily INR -INR slightly increased today at 6.7 -Received very small dose of vitamin K orally -INR is therapeutic today (5) Ventricular tachycardia: Continue amiodarone (6) Giant cell arteritis: Continue prednisone (7) CKD (chronic kidney disease), stage III: Cr 1.33 (baseline ~1.1), at upper limit of baseline -Monitor kidney function with daily BMP (8) ICD (implantable cardioverter-defibrillator) battery depletion: Placed in 2011 Pacemaker interrogation will be done before discharge (9) Anemia of chronic disease: Hgb at baseline -Continue iron supplement Complaint history of chronic neck pain especially at the Seems to have pronounced prior to admission due to anxiety Local examination is unremarkable Movements of the neck not producing any pain Will observe (10) PVD (peripheral vascular disease): Continue plavix, statin, intolerant to aspirin DVT Ppx: INR supratherapeutic. Monitor and resume coumadin when appropriate Code status: DNR per discussion with POA/daughter Megan PCP: Alfred Dispo: Admited to PCU. Discharge planning ordered. We will get PT and OT evaluation Discussed with the daughters and the patient will be discharged to [facility] this afternoon Total Time Total Time Spent Total Time Spent (In Minutes): 35 minutes Total Time Includes: Examination of the Patient, Discharge Planning, Medication Reconciliation and Communication With Other Providers Discharge Plan Discharge Items Patient Disposition: Personal Long-Term Reason For Visit: SOB,CHEST PAIN Discharge Diagnosis: Acute decompensated systolic heart failure, ischemic dilated cardiomyopathy, polymyalgia rheumatica, PVD, history of bilateral pulmonary embolism and atrial thrombus Condition: Fair Discharge Goals: Decrease discomfort, Improve function and Increase independence Activity: Resume your previous activity Non-emergency contact: Primary Care Provider Call non-emergency contact if: you have any medication questions and your symptoms worsen Follow-up/Referrals: [facility] [Primary Care Provider] - (She will need appointment with the coagulation clinic on Thursday to check her INR and dose Coumadin accordingly. She will also need to have an outpatient GI evaluation for nonspecific esophageal issues) Diet: Heart Healthy and Low Sodium (2gm) Addtl Provider Instructions: Please take precaution to avoid falls No change in her current medications She can use Tums 3 or 4 times a day for issues with her esophageal discomfort/dyspepsia Prescriptions: Continued atorvastatin 20 mg Tablet 20 mg PO DAILY RF: 0 cetirizine 10 mg Tablet 10 mg PO DAILY RF: 0 mirtazapine 15 mg Tablet 15 mg PO HS RF: 0 cyanocobalamin (vitamin B-12) [Vitamin B-12] 500 mcg Lozenge 1,000 mcg PO BID RF: 0 potassium chloride 20 mEq Tablet Extended Release 20 meq PO MOWEFR RF: 0 donepezil [Aricept] 5 mg Tablet 5 mg PO DAILY RF: 0 nitroglycerin [Nitro-Dur] 0.2 mg/hr Patch 24 Hour 1 patch TRANSDERMAL DAILY RF: 0 prednisone 5 mg Tablet 5 mg PO DAILY RF: 0 warfarin 2.5 mg Tablet 1.25 mg PO MO RF: 0 warfarin 2.5 mg Tablet 2.5 mg PO SUTUWETHFRSA RF: 0 potassium chloride 10 mEq Tablet Extended Release 10 meq PO SUTUTHSA RF: 0 clopidogrel 75 mg Tablet 75 mg PO DAILY RF: 0 spironolactone 25 mg Tablet 25 mg PO DAILY RF: 0 pantoprazole 40 mg Tablet,Delayed Release (Dr/Ec) 40 mg PO BID RF: 0 ferrous sulfate [Feosol] 325 mg (65 mg iron) Tablet 325 mg PO BID RF: 0 nitroglycerin [Nitrostat] 0.4 mg Tablet, Sublingual 1 tab Sublingual Q5M PRN (Reason: Chest Pain) RF: 0 digoxin 125 mcg Tablet 0.125 mg PO MOWEFR RF: 0 furosemide [Lasix] 20 mg Tablet 10 mg PO MOWEFR RF: 0 metoprolol succinate [Toprol XL] 25 mg Tablet Extended Release 24 Hr 25 mg PO BID RF: 0 amiodarone 100 mg Tablet 100 mg PO DAILY RF: 0 cholecalciferol (vitamin D3) [Vitamin D3] 2,000 unit Capsule 2,000 unit PO DAILY RF: 0 Stand-Alone Forms: [facility] Discharge Orders: Discharge Order (Routine); Ordered 11/12/18 Ordered By: Kristian Coffey Admission Data Admit Date/Time: 11/09/18 15:54 Attending Provider: Kristian Coffey Admit Provider: Cici Vazquez Primary Care Provider: Denys Triana,[employer] [facility] [place], [facility] Other Providers: Denver Ramirez ; Cici Vazquez ; Trevor Araiza Service: Medical Other Interventions: Discharge Summary Assessment (RN) Last Done: 11/12/18 16:39 DC Date/Time DO NOT enter until pt leaves facility: 11/12/18 18:20
== END 2018-11-12 18:20 | disposition home or self-care (01) | DRG 280 ==
LOC: ED 12:05 → SUATTDRO 15:54 → 2S 15:54 → 4W 11-11 18:04

== ENCOUNTER 2018-11-13 09:25 | Inpatient (IN) ==
[2018-11-13] MEDS ORDERED: ONDANSETRON INJ 2 MG/ML 2 ML VIAL IV STA (09:50)
[2018-11-13] MEDS ORDERED: MoRPHine SULFATE 2 MG/ML CARP IV STA ×2 (09:50→23:47)
[2018-11-13] MEDS ORDERED: ALUMINUM/MAGNESIUM SUSP 30 ML UDC PO STA (09:50)
[2018-11-13 09:53] LABS: Basophils # (auto) 0.02 K/uL (0-0.2); Basophils % (auto) 0.1 %; Eosinophils # (auto) 0.04 K/uL (0-0.5); Eosinophils % (auto) 0.3 %; Hematocrit (blood only) 41.6 % (37-47); Hemoglobin 13.8 g/dL (12.0-16.0); Immature Granulocytes # (auto) 0.08 K/uL (0.00-0.02); Immature Granulocytes % (auto) 0.5 %; Lymphocytes # (auto) 0.88 K/uL (1.2-3.4); Lymphocytes % (auto) 5.5 %; Mean Corpuscular Hemoglobin 34.2 pg (25-34); Mean Corpuscular Hgb Conc 33.2 g/dL (32-36); Mean Platelet Volume 12.6 fL (7.4-10.4); Monocytes # (auto) 1.36 K/uL (0.11-0.59); Monocytes % (auto) 8.5 %; Neutrophils # (auto) 13.54 K/uL (1.4-6.5); Neutrophils % (auto) 85.1 %; Platelet Count 162 K/uL (130-400); RDW Coefficient of Variation 15.5 % (11.5-14.5); RDW Standard Deviation 58.5 fL (36.4-46.3); Red Blood Count 4.04 M/uL (4.2-5.4); White Blood Count 15.92 K/uL (4.8-10.8)
--- NOTE | 2018-11-13 09:53 | XRay Report ---
XR chest 1V portable CLINICAL HISTORY: Chest pain. COMPARISON STUDY: Chest radiograph November 09, 2018. FINDINGS: Left subclavian pacer/AICD is in place. Moderate cardiomegaly is noted. Linear calcificatio n projecting over the left ventricle is due to a large left ventricular aneurysm. There is no pneumot horax or pleural effusion. Interstitial thickening has developed. There is no consolidation to sugges t pneumonia. IMPRESSION: 1. Interval development of mild pulmonary edema. 2. Cardiomegaly. 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 Electronically signed by: Yousuf Reynolds M.D. 11/13/2018 9:51 AM
[2018-11-13 10:09] LABS: INR 1.6 (0.9-1.1); Partial Thromboplastin Ratio 1.1; Prothrombin Time 16.1 Seconds (9.0-12.0)
[2018-11-13 10:15] LABS: Albumin Level 3.4 gm/dl (3.4-5.0); BUN Creatinine Ratio 17.6 (10-20); Calcium 8.5 mg/dl (8.5-10.1); Creatinine Clr Calc Pharmacy 33.2 ml/min; Est GFR (African American) 45.5; Est GFR (Non-African American) 39.3; Potassium 4.3 mmol/L (3.5-5.1)
[2018-11-13 10:20] LABS: Bilirubin,Total 1.2 mg/dl (0.2-1); Creatine Kinase MB 73.2 ng/ml (0.5-3.6); Globulin 3.5 gm/dl (2.5-4.0); Total Protein 6.9 gm/dl (6.4-8.2)
--- NOTE | 2018-11-13 11:22 | History & Physical Report ---
Date of Service November 13, 2018 Assessment & Plan (1) Chest pain: Pain inconsistent with ACS per Cardiology, who can reproduce her pain on palpation. She does have reasons for concern for ischemia, however, including elevated trop to 13, elevated CK and CKMB, elevated AST as well as a new onset LBBB. NSTEMI will be treated medically as the pain she is having is felt to be non-cardiac pain. Additionally, she is very high risk for a cardiac catheterization procedure. Nitro is in place per home regimen, she has a Type I allergy to aspirin so this was not given. Will cont her metoprolol, plavix and atorvastatin per home regimen for now. Morphine PRN, tramadol PRN or tylenol PRN for pain. Will trend trop and CK and will monitor in the PCU. (2) NSTEMI (non-ST elevated myocardial infarction): Treating medically with meds above and heparin drip was added by cardiology. (3) Coagulopathy: On coumadin in setting of low EF with apical aneurysm. Heparin added as INR is 1.6 today. Cont home warfarin dosing and trend daily INR. (4) Chronic systolic heart failure: Management medically including spironolactone, atorvastatin, lasix, metoprolol succinate. Gave one additional dose of Lasix 20mg IV now. (5) CKD (chronic kidney disease), stage III: at baseline, avoid nephrotoxic substances. (6) On prednisone therapy: for h/o vasculitis-taken chronically. (7) DVT prophylaxis: warfarin/heparin drip DNR as confirmed with daughter/POA on admission. Dispo-to PCU for further monitoring. Expected to go back to [facility] when medically cleared for discharge. DO Gregg Mathur Hospitalist History of Present Illness Chief Complaint: chest pain Primary Care Provider: [facility] 83 yo F with dementia who presents from [facility] for worsened chest pain that is worse when she takes a deep breath in. She was recently discharged two days ago with this same pain and was felt to have some volume overload at that time, and no evidence consistent with ischemia. Workup today reveals an EKG with a new left bundle branch block compared to recent, where this was not present. She has a known history of LAD dissection as a complication of catheterization in the past and has a known chronic ST elevation in lead V2. Previous admission this week, there was also initial concern for ischemia as there were new ST depressions in the inferior leads, which are resolved. She does feel slightly short of breath, but otherwise denies any coughing or other concerning symptoms at this time. Her daughter and great- granddaughters are at the bedside (RODNEY was here during the heart alert) and the case and plan was discussed with them. Per Cardiology assessment she is not having an acute IN, and is possibly leaking troponin as a result of her known aneurysm. Troponin is 13.7, WBC 15.9, INR 1.6 (on coumadin), AST 143, CK 789. Renal function is at baseline. CXR reveals some mild pulmonary edema. She is wearing her daily nitro patch. She was not given aspirin because of an allergy, she was also given morphine 2mg IV a GI cocktail and some Zofran with only some improvement in her symptoms. Allergies Allergy/AdvReac Type Severity Reaction Status Date / Time mivacurium Allergy Severe ANAPHYLAXIS Verified 11/13/18 10:45 aspirin Allergy Intermediate hives Verified 11/13/18 11:53 NSAIDS (Non-Steroidal Allergy Intermediate HIVES Verified 11/13/18 11:53 Anti-Inflamma erythromycin base Allergy Unknown . Verified 11/13/18 10:45 gabapentin AdvReac Intermediate myoclonus Verified 11/13/18 11:53 Home Medications Home Medications Medication Instructions Recorded Confirmed Type amiodarone 100 mg PO DAILY 02/23/18 11/13/18 History cholecalciferol (vitamin D3) 2,000 unit PO DAILY 02/23/18 11/13/18 History [Vitamin D3] clopidogrel 75 mg PO DAILY 02/23/18 11/13/18 History digoxin 0.125 mg PO MOWEFR 02/23/18 11/13/18 History donepezil [Aricept] 5 mg PO DAILY 02/23/18 11/13/18 History ferrous sulfate [Feosol] 325 mg PO BID 02/23/18 11/13/18 History furosemide [Lasix] 10 mg PO MOWEFR 02/23/18 11/13/18 History metoprolol succinate [Toprol XL] 25 mg PO BID 02/23/18 11/13/18 History nitroglycerin [Nitro-Dur] 1 patch TRANSDERMAL DAILY 02/23/18 11/13/18 History nitroglycerin [Nitrostat] 1 tab SUBLINGUAL Q5M PRN 02/23/18 11/13/18 History pantoprazole 40 mg PO BID 02/23/18 11/13/18 History potassium chloride 10 meq PO SUTUTHSA 02/23/18 11/13/18 History prednisone 5 mg PO DAILY 02/23/18 11/13/18 History spironolactone 25 mg PO DAILY 02/23/18 11/13/18 History warfarin 1.25 mg PO MO 02/23/18 11/13/18 History warfarin 2.5 mg PO SUTUWETHFRSA 02/23/18 11/13/18 History atorvastatin 20 mg PO DAILY 11/09/18 11/13/18 History cetirizine 10 mg PO DAILY 11/09/18 11/13/18 History cyanocobalamin (vitamin B-12) 1,000 mcg PO BID 11/09/18 11/13/18 History [Vitamin B-12] mirtazapine 15 mg PO HS 11/09/18 11/13/18 History potassium chloride 20 meq PO MOWEFR 11/09/18 11/13/18 History Past Med/Surg History Medical History Ischemic dilated cardiomyopathy (Chronic) Chronic systolic heart failure (Chronic) Pulmonary embolism, bilateral (Chronic) Atrial thrombus (Chronic) CAD (coronary artery disease) (Chronic) HLD (hyperlipidemia) (Chronic) PVD (peripheral vascular disease) (Chronic) ICD (implantable cardioverter-defibrillator) battery depletion (Chronic) CKD (chronic kidney disease), stage III (Chronic) Ventricular tachycardia (Chronic) PMR (polymyalgia rheumatica) (Chronic) Surgical History History of implantable cardioverter-defibrillator (ICD) placement (Chronic) Family History Other Heart disease Social History Preferred Language: Khmer Communication Ability: Effective Market Survey Representative Required: No Beliefs That Will Affect Care: None marital status: / Current Living Situation: Personal Care Facility Current Living Situation Comment: [facility] current occupational status: retired Other Information That Helps Us Care for You: No other: 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, 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 "Priscila" in 2018 Feels Safe at Home: Yes Safety Concerns: Feels Safe At This Time Smoking Status: Former smoker Hx Alcohol Use: No Hx Substance Use: No Review of Systems Review of Systems: All systems reviewed & are unremarkable except as noted in HPI & below Physical Exam Physical Exam: CONSTITUTIONAL: WNWD, vitals as above, generally well- appearing EYES: pupils are equal and round bilaterally, normal conjunctivae, no scleral icterus ENT: MMM RESPIRATORY: coarse rhonchi at the bases bilaterally, no rales or wheezes, normal respiratory effort, supplemental oxygen in place CARDIOVASCULAR: regular rate and rhythm, S1 and 2 heard without murmurs, gallops or rubs, no JVD, no peripheral edema GASTROINTESTINAL: soft, nontender, nonndistended MUSCULOSKELETAL: strength 5/5 throughout, head is normocephalic and atraumatic, she can sit up independently SKIN: warm and dry NEUROLOGIC: No facial palsy, no dysarthria. CN 2-12 grossly intact, mentation is at baseline, answering questions appropriately. No gross focal deficits. PSYCHIATRIC: alert cooperative and oriented to person and place but not date. Results & Data Vital Signs (Past 12 Hours) Vital Signs Temp Pulse Resp BP Pulse Ox 11/13/18 10:02 80 23 109/71 94 11/13/18 10:00 80 27 H 95 11/13/18 09:50 83 17 96 11/13/18 09:40 85 17 94 11/13/18 09:35 83 18 96 11/13/18 09:32 85 26 H 128/78 96 11/13/18 09:28 36.5 C 85 20 128/78 97 Laboratory Results Short CBC 11/13/18 Range/Units 09:42 WBC 15.92 H (4.8-10.8) K/uL Hgb 13.8 (12.0-16.0) g/dL Hct 41.6 (37-47) % Plt Count 162 (130-400) K/uL BMP 11/13/18 09:42 Sodium 140 Potassium 4.3 Chloride 106 Carbon Dioxide 26 BUN 22 H Creatinine 1.27 H Glucose 141 H Calcium 8.5 Cardiac Enzymes 11/13/18 Range/Units 09:42 Total Creatine Kinase 789 H (26-192) U/L CK-MB (CK-2) 73.2 H (0.5-3.6) ng/ml Liver Function 11/13/18 Range/Units 09:42 Total Bilirubin 1.2 H (0.2-1) mg/dl AST 143 H (15-37) U/L ALT 31 (12-78) U/L Alkaline Phosphatase 49 (45-117) U/L Albumin 3.4 (3.4-5.0) gm/dl Diagnostic Findings XR chest 1V portable CLINICAL HISTORY: Chest pain. COMPARISON STUDY: Chest radiograph November 09, 2018. FINDINGS: Left subclavian pacer/AICD is in place. Moderate cardiomegaly is noted. Linear calcification projecting over the left ventricle is due to a large left ventricular aneurysm. There is no pneumothorax or pleural effusion. Interstitial thickening has developed. There is no consolidation to suggest pneumonia. IMPRESSION: 1. Interval development of mild pulmonary edema. 2. Cardiomegaly. 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 Medications Administered GI cocktail Zofran 4mg IV Morphine 2mg IV ECG Findings: + LBBB Code Status & VTE Plan Code Status DNR as discussed with her daughter who is POA VTE Prophylaxis Plan VTE Prophylaxis will be ordered: Yes (1) Chest pain Chest pain type: unspecified Qualified Code(s): R07.9 - Chest pain, unspecified
--- NOTE | 2018-11-13 11:29 | Emergency Department Note ---
Entered by Gissel Wynne acting as a scribe for Konstantin Khoury DO History of Present Illness General Chief complaint: Chest Pain Source: patient, EMS and old records reviewed Mode of arrival: EMS History of Present Illness Onset (ago): hour(s) (this morning) Location: chest Radiation: other (throat, upper abdomen) Pain Consistency: + other (persistent) Relieved By: + other (sitting up, breathing through her nose); not by medication (Coumadin, Plavix) Exacerbated By: + other (inhaling through her mouth) Associated symptoms: + other (nausea, abdominal pain) The patient is a 83 year old female with a history of chronic systolic heart failure, CAD, HLD, PVD, ICD, CKD, ventricular tachycardia, atrial thrombus, and PEs that is presenting to the Emergency Room with complaints of persistent chest pain that worsened this morning. The patient reports that the pain is always present but worsens with inhaling through her mouth. She notes that the pain somewhat improves when she sits up and breathes through her nose. She states that the pain is located in her throat and radiates into her chest and upper abdomen. She notes that her heart felt different than usual. She states that she is experiencing some nausea and abdominal pain secondary to the pain. However, the patient notes that she is not in significant pain on exam. She states that she is not sure when she had her last cardiac catheterization was performed. The patient was brought to the ED via EMS. EMS notes that the patient is a resident at [facility]. EMS reports that the patients systolic BP was in the 130 range and her heart rate was in the 90s. EMS notes t hat the patients O2 saturation was in the high 80s on room air. The patient was seen in the ED 4 days ago for similar symptoms. She was evaluated by Dr. Araiza in the hospital at that time. Records show that the patient was treated medically for a STEMI at that time. She is currently taking Plavix and Coumadin due to a history of cardiac issues. The patient is allergic to Aspirin as she breaks out in hives. Home Medications Home Medications Medication Instructions Recorded Confirmed Type amiodarone 100 mg PO DAILY 02/23/18 11/13/18 History cholecalciferol (vitamin D3) 2,000 unit PO DAILY 02/23/18 11/13/18 History [Vitamin D3] clopidogrel 75 mg PO DAILY 02/23/18 11/13/18 History digoxin 0.125 mg PO MOWEFR 02/23/18 11/13/18 History donepezil [Aricept] 5 mg PO DAILY 02/23/18 11/13/18 History ferrous sulfate [Feosol] 325 mg PO BID 02/23/18 11/13/18 History furosemide [Lasix] 10 mg PO MOWEFR 02/23/18 11/13/18 History metoprolol succinate [Toprol XL] 25 mg PO BID 02/23/18 11/13/18 History nitroglycerin [Nitro-Dur] 1 patch TRANSDERMAL DAILY 02/23/18 11/13/18 History nitroglycerin [Nitrostat] 1 tab SUBLINGUAL Q5M PRN 02/23/18 11/13/18 History pantoprazole 40 mg PO BID 02/23/18 11/13/18 History potassium chloride 10 meq PO SUTUTHSA 02/23/18 11/13/18 History prednisone 5 mg PO DAILY 02/23/18 11/13/18 History spironolactone 25 mg PO DAILY 02/23/18 11/13/18 History warfarin 1.25 mg PO MO 02/23/18 11/13/18 History warfarin 2.5 mg PO SUTUWETHFRSA 02/23/18 11/13/18 History atorvastatin 20 mg PO DAILY 11/09/18 11/13/18 History cetirizine 10 mg PO DAILY 11/09/18 11/13/18 History cyanocobalamin (vitamin B-12) 1,000 mcg PO BID 11/09/18 11/13/18 History [Vitamin B-12] mirtazapine 15 mg PO HS 11/09/18 11/13/18 History potassium chloride 20 meq PO MOWEFR 11/09/18 11/13/18 History Allergies Allergy/AdvReac Type Severity Reaction Status Date / Time mivacurium Allergy Severe ANAPHYLAXIS Verified 11/13/18 10:45 NSAIDS (Non-Steroidal Allergy Severe HIVES Verified 11/13/18 10:45 Anti-Inflamma aspirin Allergy Unknown hives Verified 11/13/18 10:45 erythromycin base Allergy Unknown . Verified 11/13/18 10:45 gabapentin Allergy Unknown myoclonus Verified 11/13/18 10:45 Past Med/Surg History Medical History Ischemic dilated cardiomyopathy (Chronic) Chronic systolic heart failure (Chronic) Pulmonary embolism, bilateral (Chronic) Atrial thrombus (Chronic) CAD (coronary artery disease) (Chronic) HLD (hyperlipidemia) (Chronic) PVD (peripheral vascular disease) (Chronic) ICD (implantable cardioverter-defibrillator) battery depletion (Chronic) CKD (chronic kidney disease), stage III (Chronic) Ventricular tachycardia (Chronic) PMR (polymyalgia rheumatica) (Chronic) Surgical History History of implantable cardioverter-defibrillator (ICD) placement (Chronic) Family History Other Heart disease Social History Preferred Language: Macedonian Communication Ability: Effective Director Radio News Required: No Beliefs That Will Affect Care: None marital status: / Current Living Situation: Personal Care Facility Current Living Situation Comment: [facility] current occupational status: retired 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 and A total of 10 systems reviewed and were otherwise negative Physical Exam Vital Signs Vital Signs - 24 hr 11/13/18 09:28 11/13/18 09:32 11/13/18 09:35 Temperature 36.5 C Temperature Source Oral Sepsis Recent Fever Within 48 Hours No Sepsis New/Unexplained Change in Mental Status No Sepsis Action Taken by Nursing No Action Required Pulse Rate 85 85 83 Pulse Rate from SpO2 Sensor 85 84 Respiratory Rate 20 26 H 18 Respiratory Effort / Characteristics Non-Labored Spontaneous Blood Pressure 128/78 128/78 Blood Pressure Mean 94 94 Blood Pressure Position Lying Pulse Oximetry 97 96 96 Oxygen Delivery Method Nasal Cannula Oxygen Flow Rate 2 11/13/18 09:40 11/13/18 09:50 11/13/18 10:00 Temperature Temperature Source Sepsis Recent Fever Within 48 Hours Sepsis New/Unexplained Change in Mental Status Sepsis Action Taken by Nursing Pulse Rate 85 83 80 Pulse Rate from SpO2 Sensor 85 83 80 Respiratory Rate 17 17 27 H Respiratory Effort / Characteristics Blood Pressure Blood Pressure Mean Blood Pressure Position Pulse Oximetry 94 96 95 Oxygen Delivery Method Oxygen Flow Rate 08/24/19 10:02 Temperature Temperature Source Sepsis Recent Fever Within 48 Hours Sepsis New/Unexplained Change in Mental Status Sepsis Action Taken by Nursing Pulse Rate 80 Pulse Rate from SpO2 Sensor 80 Respiratory Rate 23 Respiratory Effort / Characteristics Blood Pressure 109/71 Blood Pressure Mean 83 Blood Pressure Position Pulse Oximetry 94 Oxygen Delivery Method Oxygen Flow Rate GENERAL: Patient is awake, alert, and in no acute distress. Patient appears anxious but is overall comfortable. EYES: The conjunctivae are clear. The pupils are round and reactive. EARS, NOSE, MOUTH AND THROAT: The nose is without any evidence of any deformity. Mucous membranes are moist.Tongue is midline NECK: The neck is nontender and supple. RESPIRATORY: Rales in the left lung field. No tachypnea or conversational d yspnea. CARDIOVASCULAR: Regular rate and rhythm noted. There no murmurs rubs or gallops normal S1 normal S2 GASTROINTESTINAL: The abdomen is soft. Bowel sounds are present in all quadrants. Abdomen is nontender. MUSCULOSKELETAL/EXTREMITIES: There is no evidence of gross deformity. Full range of motion is noted in the hips and shoulders. SKIN: There is no obvious evidence of any rash. There are no petechiae, pallor or cyanosis noted. Pedal edema bilaterally. Chronic venous stasis changes in both feet. Ecchymosis over both extremities. NEUROLOGIC: Patient is awake alert and oriented x3. Course 0920: I received the call from [facility] [employer] and started a heart alert at this time. The patient's past records from her evaluation with Dr. Araiza were reviewed at this time. 0925: I discussed the patients case with Dr. Mac, Cardiology. We reviewed the patients present and past EKGs as well as her recent evaluation with Dr. Araiza, Cardiology. 0927: The patient was evaluated in room B01. A complete history and physical examination was performed. 0930: Dr. Mayfield, Cardiology, evaluated the patient at bedside at this time. 0935: Dr. Mac and Dr. Mayfield consulted at bedside with a recommendation to treat the patient medically. 0940: I updated the patient's case with her son at this time. He states that his mother appears to be at baseline. 1006: I discussed the patient's case with Gregg Polo, who will evaluate the patient for further management and care. 1028: Upon reevaluation, the patient is resting comfortably. I discussed laboratory and radiographic results with the patient and her family. They verbal ized agreement of the treatment plan. The patient will be evaluated for further management and care. Consultations Consultation #1: I discussed the patients case with Dr. Mac, Cardiology. We reviewed the patients present and past EKGs as well as her recent evaluation with Dr. Araiza, Cardiology. Time: :25 Consultation #2: [id number]: Dr. Mayfield, Cardiology, evaluated the patient at bedside at this time. Time: 09:30 Consultation #3: I discussed the patient's case with Dr. Vazquez [facility], who will evaluate the patient for further management and care. Time: 10:06 Administered Medications Discontinued Medications Al Hydrox/Mg Hydrox/Simethicone (Maalox) 30 ml PO NOW STA Stop: 11/13/18 09:51 Last Admin: 11/13/18 09:57 Dose: 30 ml Documented by: [id number] Morphine Sulfate (Morphine Sulfate) 2 mg IV NOW STA Stop: 11/13/18 09:51 Last Admin: 11/13/18 09:58 Dose: 2 mg Documented by: [id number] Ondansetron HCl (Zofran) 4 mg IV NOW STA Stop: 11/13/18 09:51 Last Admin: 11/13/18 09:58 Dose: 4 mg Documented by: [id number] Medical Decision Making Differential Diagnosis Differential diagnosis: Etiologies such as shingles, musculoskeletal pain, pericarditis, myocarditis, cardiac ischemia, pericardial tamponade, pneumonia, pneumothorax, pleural effusion, hemothorax, pleurisy, aortic pathology, pulmonary embolism, intra- abdominal process, as well as others were considered. Medical Records Attestation: I reviewed the patient's medical records. Home Medications Current Medication List: was personally reviewed by me Laboratory Data Attestation: I reviewed the patient's lab results. Result diagrams: 11/13/18 09:42 11/13/18 09:42 Lab Results 11/13/18 11/13/18 11/13/18 Range/Units 09:42 09:42 09:42 WBC 15.92 H (4.8-10.8) K/uL RBC 4.04 L (4.2-5.4) M/uL Hgb 13.8 (12.0-16.0) g/dL Hct 41.6 (37-47) % MCV 103.0 H (80-100) fL MCH 34.2 H (25-34) pg MCHC 33.2 (32-36) g/dL RDW Std Deviation 58.5 H (36.4-46.3) fL RDW Coeff of Livier 15.5 H (11.5-14.5) % Plt Count 162 (130-400) K/uL MPV 12.6 H (7.4-10.4) fL Immature Gran % (Auto) 0.5 % Neut % (Auto) 85.1 % Lymph % (Auto) 5.5 % Brantley % (Auto) 8.5 % Eos % (Auto) 0.3 % Baso % (Auto) 0.1 % Immature Gran # (Auto) 0.08 H (0.00-0.02) K/uL Neut # (Auto) 13.54 H (1.4-6.5) K/uL Lymph # (Auto) 0.88 L (1.2-3.4) K/uL Brantley # (Auto) 1.36 H (0.11-0.59) K/uL Eos # (Auto) 0.04 (0-0.5) K/uL Baso # (Auto) 0.02 (0-0.2) K/uL PT 16.1 H (9.0-12.0) Seconds INR 1.6 H (0.9-1.1) APTT 31.0 (21.0-31.0) Seconds PTT Ratio 1.1 Sodium 140 (136-145) mmol/L Potassium 4.3 (3.5-5.1) mmol/L Chloride 106 (98-107) mmol/L Carbon Dioxide 26 (21-32) mmol/L Anion Gap 8.0 (3-11) BUN 22 H (7-18) mg/dl Creatinine 1.27 H (0.6-1.2) mg/dl Est Cr Clr Drug Dosing 33.2 ml/min Est GFR ( Amer) 45.5 Est GFR (Non-Af Amer) 39.3 BUN/Creatinine Ratio 17.6 (10-20) Glucose 141 H (70-99) mg/dl Calcium 8.5 (8.5-10.1) mg/dl Total Bilirubin 1.2 H (0.2-1) mg/dl AST 143 H (15-37) U/L ALT 31 (12-78) U/L Alkaline Phosphatase 49 (45-117) U/L Total Creatine Kinase 789 H (26-192) U/L CK-MB (CK-2) 73.2 H (0.5-3.6) ng/ml CK/CKMB % Calc 9.3 H (0-3.0) POC Troponin I (0-0.045) ng/ml Total Protein 6.9 (6.4-8.2) gm/dl Albumin 3.4 (3.4-5.0) gm/dl Globulin 3.5 (2.5-4.0) gm/dl Albumin/Globulin Ratio 1.0 (0.9-2) Lipase 82 (73-393) U/L 11/13/18 Range/Units 09:50 WBC (4.8-10.8) K/uL RBC (4.2-5.4) M/uL Hgb (12.0-16.0) g/dL Hct (37-47) % MCV (80-100) fL MCH (25-34) pg MCHC (32-36) g/dL RDW Std Deviation (36.4-46.3) fL RDW Coeff of Livier (11.5-14.5) % Plt Count (130-400) K/uL MPV (7.4-10.4) fL Immature Gran % (Auto) % Neut % (Auto) % Lymph % (Auto) % Brantley % (Auto) % Eos % (Auto) % Baso % (Auto) % Immature Gran # (Auto) (0.00-0.02) K/uL Neut # (Auto) (1.4-6.5) K/uL Lymph # (Auto) (1.2-3.4) K/uL Brantley # (Auto) (0.11-0.59) K/uL Eos # (Auto) (0-0.5) K/uL Baso # (Auto) (0-0.2) K/uL PT (9.0-12.0) Seconds INR (0.9-1.1) APTT (21.0-31.0) Seconds PTT Ratio Sodium (136-145) mmol/L Potassium (3.5-5.1) mmol/L Chloride (98-107) mmol/L Carbon Dioxide (21-32) mmol/L Anion Gap (3-11) BUN (7-18) mg/dl Creatinine (0.6-1.2) mg/dl Est Cr Clr Drug Dosing ml/min Est GFR ( Amer) Est GFR (Non-Af Amer) BUN/Creatinine Ratio (10-20) Glucose (70-99) mg/dl Calcium (8.5-10.1) mg/dl Total Bilirubin (0.2-1) mg/dl AST (15-37) U/L ALT (12-78) U/L Alkaline Phosphatase (45-117) U/L Total Creatine Kinase (26-192) U/L CK-MB (CK-2) (0.5-3.6) ng/ml CK/CKMB % Calc (0-3.0) POC Troponin I 13.72 H (0-0.045) ng/ml Total Protein (6.4-8.2) gm/dl Albumin (3.4-5.0) gm/dl Globulin (2.5-4.0) gm/dl Albumin/Globulin Ratio (0.9-2) Lipase (73-393) U/L Imaging Data Radiologist's Impression: Radiology results as stated below per my review and the radiologist's interpretation: XR chest 1V portable CLINICAL HISTORY: Chest pain. COMPARISON STUDY: Chest radiograph November 09, 2018. FINDINGS: Left subclavian pacer/AICD is in place. Moderate cardiomegaly is noted. Linear calcification projecting over the left ventricle is due to a large left ventricular aneurysm. There is no pneumothorax or pleural effusion. Interstitial thickening has developed. There is no consolidation to suggest pneumonia. IMPRESSION: 1. Interval development of mild pulmonary edema. 2. Cardiomegaly. 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 Electronically signed by: Yousuf Reynolds M.D. 11/13/2018 9:51 AM ECG Data Attestation: I personally reviewed and interpreted this ECG as follows: Indication: chest pain Rate (beats per minute): 84 Rhythm: normal sinus Findings: + LBBB and + ST elevation (Anterior and High Lateral Leads) Comparison ECG Date: from (pre-hospital EKG) Change: no significant change Additional Comments: Pre-hospital EKG: Normal sinus at a rate of 85 bpm without PVCs. LBBB pattern is noted with elevation in the anterior and lateral leads consistent with an AL. Elevation is new compared to 11/11/18. Repeat pre-hospital EKG: Normal sinus at a rate of 83. Persistent of previously noted anterior and high lateral ST elevation. LBBB persists. Blood Pressure Blood Pressure Findings: Normal blood pressure MDM Narrative The patient is an 83-year-old female who presented to the emergency department for chest discomfort. The patient has a history of cardiac disease as well as low cardiac output as well as LAD aneurysm. 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 The patient was made a heart alert prior to arrival because of a grossly abnormal EKG which showed ST segment elevation in the high lateral leads as well as the anterior leads. The patient was recently in our facility with similar complaints. It is felt that the patient has such a complicated medical history as well as a complicated cardiac history that medical management would be preferable to interventional treatment. The patient was evaluated in the emergency department immediately by the [facility] imaging scheduler as well as the felt tipping machine tender. We reviewed the patient's EKGs as well as her laboratory studies. She was found to have an elevated troponin. The patient has symptoms which are reproducible with inspiration as well as with palpation of the chest. It is unclear if this represents a true coronary artery occlusion however she is comfortable at this time and states that her pain is very minimal. Given her complicated history she was not felt to be a good candidate for interventional treatment at this time. We discussed this with the patient as well as with the patient's family. They are all in agreement that they would prefer conservative treatment at this time. The patient is allergic to aspirin. She is on a nitro glycerin patch at this time. She was offered pain medication in the emergency department as well. I discussed her case with the on-call [facility] hospitalist. They have agreed to evaluate the patient in the emergency department for further management disposition. Impression & Plan Acute AL, Elevated troponin, Chest pain Discharge Plan Visit Data Chief Complaint: Chest Pain ED Provider: Konstantin Khoury Discharge Problem: Acute AL, Elevated troponin, Chest pain Patient Disposition: Being Evaluated by Hospitalist Forms Stand Alone Forms: My [facility] Prescriptions Prescriptions: No Action atorvastatin 20 mg Tablet 20 mg PO DAILY RF: 0 cetirizine 10 mg Tablet 10 mg PO DAILY RF: 0 mirtazapine 15 mg Tablet 15 mg PO HS RF: 0 cyanocobalamin (vitamin B-12) [Vitamin B-12] 500 mcg Lozenge 1,000 mcg PO BID RF: 0 potassium chloride 20 mEq Tablet Extended Release 20 meq PO MOWEFR RF: 0 donepezil [Aricept] 5 mg Tablet 5 mg PO DAILY RF: 0 nitroglycerin [Nitro-Dur] 0.2 mg/hr Patch 24 Hour 1 patch TRANSDERMAL DAILY RF: 0 prednisone 5 mg Tablet 5 mg PO DAILY RF: 0 warfarin 2.5 mg Tablet 1.25 mg PO MO RF: 0 warfarin 2.5 mg Tablet 2.5 mg PO SUTUWETHFRSA RF: 0 potassium chloride 10 mEq Tablet Extended Release 10 meq PO SUTUTHSA RF: 0 clopidogrel 75 mg Tablet 75 mg PO DAILY RF: 0 spironolactone 25 mg Tablet 25 mg PO DAILY RF: 0 pantoprazole 40 mg Tablet,Delayed Release (Dr/Ec) 40 mg PO BID RF: 0 ferrous sulfate [Feosol] 325 mg (65 mg iron) Tablet 325 mg PO BID RF: 0 nitroglycerin [Nitrostat] 0.4 mg Tablet, Sublingual 1 tab Sublingual Q5M PRN (Reason: Chest Pain) RF: 0 digoxin 125 mcg Tablet 0.125 mg PO MOWEFR RF: 0 furosemide [Lasix] 20 mg Tablet 10 mg PO MOWEFR RF: 0 metoprolol succinate [Toprol XL] 25 mg Tablet Extended Release 24 Hr 25 mg PO BID RF: 0 amiodarone 100 mg Tablet 100 mg PO DAILY RF: 0 cholecalciferol (vitamin D3) [Vitamin D3] 2,000 unit Capsule 2,000 unit PO DAILY RF: 0 Referrals Referrals: [facility], [facility] [Primary Care Provider] - Discharge Problem: Acute AL Qualifiers: Myocardial infarction type: ST elevation myocardial infarction Involved coronary artery: unspecified coronary artery Qualified Code(s): I21.3 - ST elevation (STEMI) myocardial infarction of unspecified site Chest pain Qualifiers: Chest pain type: unspecified Qualified Code(s): R07.9 - Chest pain, unspecified The scribe's documentation has been prepared under my direction and personally reviewed by me in its entirety. I confirm that the note above accurately reflects all work, treatment, procedures, and medical decision making performed by me.
[2018-11-13] MEDS ORDERED: FUROSEMIDE 20 MG in SYRINGE 0 ML IV ONE (13:30)
[2018-11-13] MEDS ORDERED: ACETAMINOPHEN 325 MG TAB PO PRN (13:32)
[2018-11-13] MEDS ORDERED: Heparin IV Standard *NO* Bolus IV SCH (13:32)
[2018-11-13] MEDS ORDERED: POLYETHYLENE (MIRALAX) 17 GM PACK PO PRN (13:32)
[2018-11-13] MEDS ORDERED: NITROGLYCERIN SL 0.4 MG/TAB TAB SL PRN (13:32)
[2018-11-13] MEDS ORDERED: ONDANSETRON INJ 2 MG/ML 2 ML VIAL IV PRN (13:32)
[2018-11-13] MEDS ORDERED: TRAMADOL HCL 50 MG TABLET PO PRN (13:32)
[2018-11-13] MEDS ORDERED: HEPARIN SODIUM/DEXTROSE 25,000 UNITS/500 ML BAG IV SCH (13:45)
--- NOTE | 2018-11-13 14:33 | Consultation Report ---
DATE OF CONSULTATION: 11/13/2018 CONSULTATION REQUESTED BY: Dr. Khoury and Dr. Vazquez. REASON FOR CONSULTATION: ST segment elevation CO. HISTORY OF PRESENT ILLNESS: The patient is a very pleasant, yet very cardiovascularly complex 83-year-old woman, who normally follows with Dr. Zay Willis of our Cardiology practice. She presents to [facility] via EMS from her residential with reports of chest pain. EMS performed an EKG in the field and interpreted as an anterior ST segment elevation CO and a heart alert was called. I heard the heart alert overhead and went to evaluate the patient. She states that she has been having difficulty with pleuritic chest pain all night. This made it very difficult for her to sleep. She describes it as a pressure/sharp stabbing sensation in the center of her chest that occurs when she takes a deep breath. She notes that this is exactly similar to the symptoms she had upon her presentation on 11/09/2018, at which time she was found to have an ST segment elevation CO as well and treated medically. Otherwise, she states that she feels okay, just tired from not sleeping. Again, her pain only occurs with deep inhalation or direct palpation. A 12-lead EKG in the Emergency Department was reviewed, which shows chronic left bundle branch block with questionable ST segment elevations in the anterior leads, similar to her presentation EKG on 11/09/2018 and previous EKGs as well. At that time, given the fact that her chest pain was reproducible and recent CO was decided to be treated medically, a heart alert was canceled by myself and decision was made to treat her medically. After receiving morphine in the Emergency Department, the patient is now pain free. Of note, the patient presented on 11/09/2018 with exactly similar presentation. She was seen by my partner Dr. Araiza at that time and she was resting comfortably, so decision was made after discussion with the patient and her daughter to treat conservatively to which they agree. PAST SURGICAL HISTORY: 1. 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 2. Med[employer] ICD placement complicated by lead fracture and reimplantation. 3. Cataract surgery. 4. Hip surgery. MEDICAL ILLNESSES: 1. Coronary artery disease. 2. Ischemic cardiomyopathy, most recent EF of 15%-20% with a very large apical aneurysm. 3. History of ventricular tachycardia, status post ICD placement, on chronic amiodarone. 4. History of Taina syndrome. 5. [employer] class 3+. 6. Multiple bilateral PEs in 06/2011. 7. Hypertension. 8. Dyslipidemia. 9. 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 10. Peripheral vascular disease. 11. Dementia. 12. Giant cell arteritis. 13. Urticaria with aspirin in the past. 14. Chronic renal insufficiency. FAMILY HISTORY: Remarkable for coronary artery disease in both her mother and father. SOCIAL HISTORY: The patient is a former smoker, smoked for 45 years. Denies any alcohol or recreational drug use. She is and currently resides at [facility]. ALLERGIES: HIVES. 1. DICLOFENAC. 2. GABAPENTIN. 3. ZITHROMAX. MEDICATIONS AN OUTPATIENT: 1. Plavix 75 mg daily. 2. Lasix 10 mg Mondays, Wednesdays and Fridays. 3. Amiodarone 100 mg daily. 4. Spironolactone 25 mg daily. 5. Atorvastatin 20 mg daily. 6. Prednisone 5 mg daily. 7. Digoxin 125 mcg Thursday, Thursday, Thursday. 8. Nitropatch 0.2 mg per hour. 9. Metoprolol succinate 25 mg b.i.d. 10. Warfarin as directed by the [facility]. 11. Remeron. 12. Protonix. PHYSICAL EXAMINATION: VITALS: Temperature 36.5, pulse 85, respiratory rate 12, blood pressure 128/78. GENERAL: Awake, alert, oriented x3, in no acute distress, resting comfortably. HEENT: Normocephalic, atraumatic. Pupils equal, round, reactive to light and accommodation. Extraocular muscles intact. Anicteric sclerae. Moist mucous membranes. Hard of hearing. NECK: No JVD, no bruit. CARDIOVASCULAR: Regular. Positive S4. Normal S1 and S2. No S3. A 3/6 mid to late systolic ejection murmur greatest at the left sternal border with radiation to the left axilla. No rubs. PULMONARY: Scant bibasilar crackles, otherwise clear. No rhonchi or wheezing. ABDOMEN: Bowel sounds x4, soft. No rebound, guarding, tenderness. No organomegaly. EXTREMITIES: No clubbing, cyanosis or edema. +2 pedal pulses bilaterally. SKIN: Warm and dry. TEST RESULTS: A 12-lead EKG upon arrival to the Emergency Department independently reviewed shows normal sinus rhythm at 84 beats per minute with an underlying left bundle branch block, questionable anterior ST segment elevations, no significant change compared to presentation EKG of 11/09/2018. Initial troponin of 13. A 2D echocardiogram performed 11/09/2018 was read as extensive thin and very expanded anterior septal, anterior and anterolateral infarct with very large apical aneurysm, mild hypokinesis of the basal segments, left ventricular systolic function is severely reduced, EF 15%-20%. Compared to previous study of 2017, left ventricular aneurysm is relatively unchanged. The remaining myocardial segments are somewhat more hypokinetic. IMPRESSION: 1. Reproducible chest pain. 2. Severe ischemic cardiomyopathy, EF 15%-20% with very large apical aneurysm. 3. Chronic left bundle branch block. 4. Dementia. 5. Hypertension. 6. Hyperlipidemia. RECOMMENDATIONS: It was my pleasure to see the patient in consultation today. Given the fact that the patient is symptom free and her EKG is not significantly changed, I do not believe this represents an ST segment elevation CO and again I have canceled the heart alert at this time. Her pain is completely reproducible and believe we should treat her for musculoskeletal chest pain. So, she will be continued on her outpatient medical regimen. Her INR is less than 2, so heparin will be started at this time and we will admit her to telemetry and observe overnight. Troponin is elevated but again, given, lack of subjective symptoms, no intervention will be attempted at this time. I did discuss the findings with her son who is at the bedside at the time and both the patient and son agreed with the plan, which again was agreed on by the patient and her daughter on admission on 11/09/2018 as well. I then spoke with her daughter Megan, as well, and she too is in agreement with not repeating cardiac cath given her lack of symptoms and very high risk of intraprocedural complication given her history. AMADA
[2018-11-13] MEDS: MoRPHine SULFATE 2 MG/ML CARP IV PRN ×3 (14:45→23:18)
[2018-11-13 15:49] LABS: Troponin I 19.2 ng/ml (0-0.045)
[2018-11-13] MEDS ORDERED: WARFARIN SOD 2.5 MG TAB PO SCH (16:00)
[2018-11-13] MEDS ORDERED: PROMETHAZINE HCL 12.5 MG in SODIUM CHLORIDE 0.9% 50 ML IV PRN (17:40)
[2018-11-13] MEDS ORDERED: ALUMINUM/MAGNESIUM/SIMETH (MAALOX MAX) 30 ML UDC PO PRN (20:57)
[2018-11-13] MEDS ORDERED: PANTOprazole 40 MG TAB PO SCH (21:00)
[2018-11-13] MEDS ORDERED: FERROUS SULFATE 325 MG TAB PO SCH (21:00)
[2018-11-13] MEDS ORDERED: CYANOCOBALAMIN 500 MCG TABLET (VITAMIN B-12) PO SCH (21:00)
[2018-11-13] MEDS ORDERED: METOPROLOL SUCC 25MG EXT REL TAB PO SCH (21:00)
[2018-11-13] MEDS ORDERED: MIRTAZAPINE TAB 15 MG TAB PO SCH (21:00)
[2018-11-13 21:01] LABS: Partial Thromboplastin Ratio > 5.1
[2018-11-13 21:25] LABS: Partial Thromboplastin Time > 139.0 Seconds (21.0-31.0)
[2018-11-13] MEDS ORDERED: SODIUM CHLORIDE 0.9% 500 ML IV SCH ×2 (23:00)
[2018-11-13] MEDS ORDERED: POTASSIUM CHLORIDE 10 MEQ in SODIUM CHLORIDE 0.9% 1000ML 1,000 ML IV SCH (23:00)
[2018-11-13 23:58] LABS: BUN Creatinine Ratio 15.8 (10-20); Calcium 7.8 mg/dl (8.5-10.1); Creatinine Clr Calc Pharmacy 21.7 ml/min; Est GFR (African American) 27.1; Est GFR (Non-African American) 23.4; Magnesium 2.6 mg/dl (1.8-2.4)
[2018-11-14 00:28] LABS: Potassium 5.1 mmol/L (3.5-5.1)
--- NOTE | 2018-11-14 08:29 | Discharge Summary ---
Date of Service November 14, 2018 Admission HPI Per Admitting Provider 83 yo F with dementia who presents from [facility] for worsened chest pain that is worse when she takes a deep breath in. She was recently discharged two days ago with this same pain and was felt to have some volume overload at that time, and no evidence consistent with ischemia. Workup today reveals an EKG with a new left bundle branch block compared to recent, where this was not present. She has a known history of LAD dissection as a complication of catheterization in the past and has a known chronic ST elevation in lead V2. Previous admission this week, there was also initial concern for ischemia as there were new ST depressions in the inferior leads, which are resolved. She does feel slightly short of breath, but otherwise denies any coughing or other concerning symptoms at this time. Her daughter and great- granddaughters are at the bedside (RODNEY was here during the heart alert) and the case and plan was discussed with them. Per Cardiology assessment she is not having an acute WI, and is possibly leaking troponin as a result of her known aneurysm. Troponin is 13.7, WBC 15.9, INR 1.6 (on coumadin), AST 143, CK 789. Renal function is at baseline. CXR reveals some mild pulmonary edema. She is wearing her daily nitro patch. She was not given aspirin because of an allergy, she was also given morphine 2mg IV a GI cocktail and some Zofran with only some improvement in her symptoms. Admission Exam (Per Admitting) Constitutional CONSTITUTIONAL: WNWD, vitals as above, generally well-appearing EYES: pupils are equal and round bilaterally, normal conjunctivae, no scleral icterus ENT: MMM RESPIRATORY: coarse rhonchi at the bases bilaterally, no rales or wheezes, normal respiratory effort, supplemental oxygen in place CARDIOVASCULAR: regular rate and rhythm, S1 and 2 heard without murmurs, gallops or rubs, no JVD, no peripheral edema GASTROINTESTINAL: soft, nontender, nonndistended MUSCULOSKELETAL: strength 5/5 throughout, head is normocephalic and atraumatic, she can sit up independently SKIN: warm and dry NEUROLOGIC: No facial palsy, no dysarthria. CN 2-12 grossly intact, mentation is at baseline, answering questions appropriately. No gross focal deficits. PSYCHIATRIC: alert cooperative and oriented to person and place but not date. Discharge Data Consultations 11/13/18 10:27 ED Decision to Admit Stat 11/13/18 13:32 Consult Cardiology Routine Consult Case Management - Discharge Planning Routine Procedures Performed Operation Date: 11/13/18 09:30 <No data on this case meets the specified criteria> Hospital Course (1) NSTEMI (non-ST elevated myocardial infarction): 83 F intially was heart alert in ER today 11/13/2018. Seen by cardiology and thought to be no change in ekg from prior and was admitted for NSTEMI. Started on iv heparin.Also Patient was deemed poor candidate for cardic cath. Hx of CHF with EF 15-20%. Patient complained of chest discomfort early night and asked for maalox and it seemed to help her. But her troponin was trending up to 26 from but her vitals were fine and she was sleeping. Later She became bradycardic with heart rate in 40's. EKG showed paced rhythm. Patient was drowsy and says she is feeling weak. Not able to get blood pressure. Started on fluids. Notified cardiology and was advised not a cardiac cath candidate and to keep patient comfortable. Notified family . With fluid bolus BP improved to 60/40. Family was ok to keep patient comfortable and they came to the hospital. Received iv morphine as patient seemed uncomfortable. Patient at 12:19am on November 14 2018. Admission A/P: (1) Chest pain: Pain inconsistent with ACS per Cardiology, who can reproduce her pain on palpation. She does have reasons for concern for ischemia, however, including elevated trop to 13, elevated CK and CKMB, elevated AST as well as a new onset LBBB. NSTEMI will be treated medically as the pain she is having is felt to be non-cardiac pain. Additionally, she is very high risk for a cardiac catheterization procedure. Nitro is in place per home regimen, she has a Type I allergy to aspirin so this was not given. Will cont her metoprolol, plavix and atorvastatin per home regimen for now. Morphine PRN, tramadol PRN or tylenol PRN for pain. Will trend trop and CK and will monitor in the PCU. (2) NSTEMI (non-ST elevated myocardial infarction): Treating medically with meds above and heparin drip was added by cardiology. (3) Coagulopathy: On coumadin in setting of low EF with apical aneurysm. Heparin added as INR is 1.6 today. Cont home warfarin dosing and trend daily INR. (4) Chronic systolic heart failure: Management medically including spironolactone, atorvastatin, lasix, metoprolol succinate. Gave one additional dose of Lasix 20mg IV now. (5) CKD (chronic kidney disease), stage III: at baseline, avoid nephrotoxic substances. (6) On prednisone therapy: for h/o vasculitis-taken chronically. (7) DVT prophylaxis: warfarin/heparin drip DNR as confirmed with daughter/POA on admission. Dispo-to PCU for further monitoring. Expected to go back to [facility] when medically cleared for discharge. Discharge Instructions No d/c instructions as patient
[2018-11-14] MEDS ORDERED: CLOPIDOGREL BISULFATE 75 MG TAB PO SCH (09:00)
[2018-11-14] MEDS ORDERED: AMIODARONE 200 MG TAB PO SCH (09:00)
[2018-11-14] MEDS ORDERED: SPIRONOLACTONE 25 MG TAB PO SCH (09:00)
[2018-11-14] MEDS ORDERED: DONEPEZIL HCL 5 MG TAB PO SCH (09:00)
[2018-11-14] MEDS ORDERED: CETIRIZINE HCL 10 MG TABLET PO SCH (09:00)
[2018-11-14] MEDS ORDERED: ATORVASTATIN 20 MG TAB PO SCH (09:00)
[2018-11-14] MEDS ORDERED: NITROGLYCERIN 0.2 MG/HR PATCH TD SCH (09:00)
[2018-11-14] MEDS ORDERED: predniSONE 5 MG TAB PO SCH (09:00)
[2018-11-14] MEDS ORDERED: POTASSIUM CHLORIDE 10 MEQ TABCR PO SCH (09:00)
[2018-11-14] MEDS ORDERED: CHOLECALCIFEROL 1,000 UNITS TAB PO SCH (09:00)
--- NOTE | 2018-11-14 19:17 | Death Summary ---
Date of Service November 14, 2018 Pronouncement Note Date and Time of Date of : 11/14/18 Time of : 00:19 Contributing Factors (1) NSTEMI (non-ST elevated myocardial infarction): Summary Additional details: Seen and examined the patient: Patient admitted for NSETMI. HX of CHF with ef 15-20%. Became bradycardic and could not read blood pressure. Fluid bolus Given. cardiology notified. Not a candidate for cardiac cath. Advised for comfort care. Notified family. Family came to the hospital and agrees to keep patient comfortable. Patient at 00:19am november 14 2018. Exam: Ge unresponsive Pupils fixed dilated and non reactive to light Neck No carotid pulse palpable Cvs no nicholson sounds heard Rs no spontaneous breathing, No breath sounds heard. Patient pronounced on November 14 00:19am. Additional Data Confirmation of : no pulse, no respirations, no heart sounds and pupils fixed and dilated Family: at bedside Attending physician: Kristian Coffey MD
[2018-11-15] MEDS ORDERED: FUROSEMIDE 20 MG TAB PO SCH (09:00)
[2018-11-15] MEDS ORDERED: POTASSIUM CHLORIDE 20 MEQ TABCR PO SCH (09:00)
[2018-11-15] MEDS ORDERED: WARFARIN SOD 1.25 MG TAB PO SCH (16:00)
[2018-11-15] MEDS ORDERED: DIGOXIN 0.125 MG TAB PO SCH (16:00)
== END 2018-11-14 02:22 | disposition expired ==
LOC: ED 09:25 → 2S 10:48